=== PATIENT | female | born 1980 | race Caucasian/White ===

== ENCOUNTER 2018-01-03 17:01 | Emergency (ER) | payer OTHER, MEDICAID, SELFPAY ==
[2018-01-03 17:06] VITALS: BP 137/87; PULSE 101; RESP 20; TEMP 36.5; O2SAT 99; BMI 49.4
--- NOTE | 2018-01-03 18:15 | PC.NURSE ---
pt states, legs still feeling numb, burning bilateral feet with spasm. prefers to be sitting in wheelchair at this time. updated reason for waiting/
--- NOTE | 2018-01-03 18:53 | PC.NURSE ---
pt upset that she hasnt seen a doctor at this time, explained to pt. pt upset that her pain is not addressed. reassured
--- NOTE | 2018-01-03 19:10 | ED.LOWEXIN ---
HPI - Extremity Injury (Lower) General Chief Complaint: Extremity Injury, Lower Stated Complaint: numbness Time Seen by Provider: 01/03/18 17:24 Source: patient, RN notes reviewed and old records reviewed Mode of arrival: EMS Limitations: no limitations History of Present Illness HPI Narrative: Patient is a 37-year-old female presenting with bilateral lower extremity weakness. She says her legs gave out on her. She was actually seen evaluated yesterday at [facility] for the same where she was diagnosed with peripheral neuropathy. She is currently undergoing chemotherapy for stage III breast cancer. She got her 1st dose of Taxol yesterday and since then she has had increased neuropathy. She was started on gabapentin yesterday however she does not feel like it is helping. She said that she has had fever off and on but is currently afebrile. She has no changes in bowel or bladder habits. She denies any cough chest pain nausea or vomiting. Related Data Home Medications Medication Instructions Recorded Confirmed insulin NPH isoph U-100 human 1 dose SUB-Q DIRECTED 01/03/18 01/03/18 [Humulin N NPH Insulin KwikPen] insulin aspart U-100 [Novolog 1 dose SUB-Q PRN PRN 01/03/18 01/03/18 Flexpen U-100 Insulin] Previous Rx's Medication Instructions Recorded metformin 1,000 mg PO BIDCC #180 tab 09/15/17 oxycodone-acetaminophen [Percocet] 1 tab PO Q6H PRN #10 tab 01/04/18 Allergies Allergy/AdvReac Type Severity Reaction Status Date / Time No Known Drug Allergies Allergy Verified 01/03/18 17:11 Review of Systems Review of Systems All systems reviewed & are unremarkable except as noted in HPI and below Constitutional Reports body ache(s), Reports frequent falls (Over the last few days) and Reports weakness Cardiovascular Denies chest pain, Denies irregular heart rhythm, Denies lightheadedness, Denies palpitations, Denies dyspnea, Denies dyspnea on exertion and Denies orthopnea Respiratory Denies cough, Denies dyspnea, Denies dyspnea on exertion and Denies wheezing Gastrointestinal Gastrointestinal: Denies abdominal pain, Denies change in bowel habits, Denies diarrhea, Denies nausea and Denies vomiting Genitourinary Denies difficulty voiding and Denies other (Urinary incontinence) Musculoskeletal Reports system reviewed and no additional complaints, except as docu, Reports as per HPI, Reports numbness and Reports tingling (Bilateral lower leg numbness and tingling) Integumentary/Breasts Denies pruritus, Denies erythema, Denies rash and Denies wounds Neurologic Reports frequent falls (Over the last few days), Reports numbness, Reports radicular pain, Reports tingling (Bilateral lower leg numbness and tingling) and Reports weakness Endocrine Denies palpitations Hematologic/Lymphatic Reports system reviewed and no additional complaints, except as docu Allergic/Immunologic Denies wheezing PFSH Medical History Anxiety (Acute) Asthma (Acute) Breast cancer (Acute) Depression (Acute) PTSD (post-traumatic stress disorder) (Acute) Surgical History S/P mastectomy (Acute) Status post delivery Status post delivery Status post colonoscopy (11/25/16) Family History Father Diabetes mellitus Heart disease Mental health problem Grandfather Cancer Diabetes mellitus Heart disease High cholesterol Grandmother Cancer Heart disease Essential hypertension High cholesterol Cerebrovascular accident (CVA), unspecified mechanism Mother Mental health problem Social History Smoking Status: Current every day smoker Exam Initial Vital Signs Initial Vital Signs: Vital Signs Temperature 97.7 F 01/03/18 17:06 Pulse Rate 101 H 01/03/18 17:06 Respiratory Rate 20 01/03/18 17:06 Blood Pressure 137/87 H 01/03/18 17:06 Pulse Oximetry 99 01/03/18 17:06 Const General: No acute distress Nutritional Appearance: obese Orientation: alert, awake and oriented x3 HENMT Head: normal to inspection and other (alopecia) Ears: hearing grossly normal bilaterally Face and sinus: normal facial exam Neck Neck: normal visual inspection, trachea midline, No lymphadenopathy, No midline deformity and No JVD Lymphatic: No lymphedema Chest Other: Port right side Resp Effort & Inspection: normal respiratory effort, able to speak in complete sentences, no respiratory distress and no use of accessory muscles Auscultation: clear to auscultation bilaterally, no rales, no rhonchi and no wheezes Cardio Rate: regular rate Rhythm: regular rhythm Heart Sounds: no click, no gallops, no murmurs and no rubs Pulses: normal peripheral pulses Back/Spine/Pelvis Thoracic/Lumbar Spine: lumbar spinal tenderness (He tender midline of lumbar spine L4-L5 area no scarring no erythema) Skin General: no rashes or lesions noted, No jaundice and No petechiae Neuro General: alert, awake and oriented x3 Cognition: normal cognition Speech: speech normal Extrem Right lower extremity: normal capillary refill and lower leg (Minimal movement against gravity. drops to [place]); no cyanosis and joint enlargement noted Left lower extremity: normal capillary refill and lower leg Details: other (Able to hold leg for 3-5 seconds but not able to lift leg on her own); abnormal ROM, no cyanosis and joint enlargement noted Psych Speech and Movement: speech and movement normal Course Hospital Course: The patient refused any kind of peripheral IV. Her port was difficult to access requiring 1/2 inch needle which we had trouble locating. This did delay access and blood work. Patient also refused any kind of lab draw. Orders Ordered: ED Orders 01/03/18 19:23 MR lumbar spine wo con Stat 01/03/18 19:25 XR chest 1V Stat 01/03/18 22:09 Blood Culture Stat Complete Blood Count AUTO DIFF Stat Comprehensive Metabolic Panel Stat Lactate (Lactic Acid) Stat Discontinued Medications Hydromorphone HCl (Dilaudid) 1 mg IV NOW ONE Stop: 01/03/18 19:27 Last Admin: 01/03/18 20:33 Dose: 1 mg Sodium Chloride (Normal Saline 0.9%) 1,000 mls @ 1,000 mls/hr IV BOLUS ONE Stop: 01/03/18 23:24 Last Infusion: 01/04/18 00:02 Dose: 1,000 mls/hr Admin: 01/03/18 22:25 Dose: 1,000 mls/hr Ketorolac Tromethamine (Toradol) 30 mg IV NOW ONE Stop: 01/03/18 22:25 Last Admin: 01/03/18 22:38 Dose: Not Given Ketorolac Tromethamine (Toradol) 30 mg IV NOW ONE Stop: 01/03/18 22:26 Last Admin: 01/03/18 22:43 Dose: 30 mg Oxycodone/Acetaminophen (Endocet 5/325 Prepack) 1 bottle MISC SEEINSTR ONE Stop: 01/04/18 00:10 Last Admin: 01/04/18 00:16 Dose: 1 bottle Reevaluation(s) Reevaluation #1: Patient's pain improved some after Dilaudid. She is given a dose of Toradol Reevaluation #2: Pain continues to improve she is moving extremities all more but still complaining of numbness and tingling. Vital Signs - 8 hr 01/03/18 22:49 01/04/18 00:30 Temperature 97.6 F Pulse Rate 77 78 Respiratory Rate 17 17 Blood Pressure [Right Arm] 142/87 H 143/82 H Pulse Oximetry 98 98 MDM - Extremity Injury (Lower) Medical Records Attestation: I reviewed the patient's medical records. Lab Data Attestation: I reviewed the patient's lab results. Result diagrams: 01/03/18 22:09 01/03/18 22:09 Lab Results 01/03/18 01/03/18 01/03/18 Range/Units 22:09 22:09 22:09 WBC 8.0 (4.5-11.0) X10^3/uL RBC 4.17 (4.0-5.2) X10^6/uL Hgb 11.9 L (12.0-16.0) g/dL Hct 35.1 L (36-46) % MCV 84.0 (80-100) fL MCH 28.5 (26-34) PG MCHC 33.9 (30-36) % RDW 19.7 H (11.6-14.8) % Plt Count 184 (150-400) X10^3/uL Neut % (Auto) 52.8 (50-75) % Lymph % (Auto) 38.6 (25-40) % [place] % (Auto) 7.6 (3-14) % Eos % (Auto) 0.2 L (2-4) % Baso % (Auto) 0.8 (0-2) % Neut # (Auto) 4200 (7239-9545) /uL Sodium 141 (137-145) mmol/L Potassium 3.9 (3.4-5.1) mmol/L Chloride 106.0 (98-107) mmol/L Carbon Dioxide 24.0 (22-32) mmol/L BUN 13.0 (7-17) mg/dL Creatinine 0.50 L (0.52-1.04) mg/dL Estimated GFR > 60.0 (>60) mL/min BUN/Creatinine Ratio 26.0 H (6-22) Glucose 147 H (70-100) mg/dL Lactate 1.2 (0.7-2.1) mmol/L Calcium 8.8 (8.4-10.2) mg/dL Total Bilirubin 0.3 (0.2-1.3) mg/dL AST 22 (14-36) IU/L ALT 30 (9-52) IU/L Alkaline Phosphatase 64 (38-126) U/L Total Protein 7.0 (6.3-8.2) g/dL Albumin 3.9 (3.5-5.0) g/dL Globulin 3.1 (1.7-4.1) g/dL Albumin/Globulin Ratio 1.3 (1.0-2.8) Imaging Data MRI lumbar: Radiologist's impression: PROCEDURE: MR LUMBAR SPINE WO CON INDICATIONS: fever, back pain, leg weakness current breast cancer TECHNIQUE: Noncontrast sagittal T1 spin echo and T2 fast echo, sagittal STIR, axial T1 and T2 fast spin echo through the lumbar spine. In cases with scoliosis, additional coronal T2 fast spin echo may be performed. COMPARISON: None. FINDINGS: Image quality: Excellent. Alignment and Curvature: There is normal bony alignment. Bone Marrow: Marrow is of normal overall signal. No acute vertebral body compression fractures. Spinal Cord: Conus medullaris terminates at the L2 level. Visualized cord demonstrates normal signal and size. Paraspinous Soft Tissues: No paravertebral masses. Mild dependent subcutaneous soft tissue edema the level of L3-sacrum There is mild canal narrowing at the level of T10-T11 L1-L2: Normal appearance. L2-L3: Normal appearance. L3-L4: Normal appearance. L4-L5: Broad-based posterior disc bulge and facet arthropathy, with mild canal narrowing. Posterior annular fissure noted. Mild right and left foraminal narrowing L5-S1: Mild broad-based posterior disc bulge and facet arthropathy. No definite canal stenosis. Mild left and no right foraminal stenoses IMPRESSION: No suspicious marrow signal changes (although contrast enhanced images were not obtained secondary to no IV access). No high-grade canal stenosis or foraminal narrowing. Dictated by: Santiago Waddell M.D. on 01/03/2018 at 22:06 Chest x-ray: Attestation: I personally reviewed and interpreted this imaging study as follows: Radiologist's impression: PROCEDURE: XR CHEST 1V INDICATIONS: cancer fever TECHNIQUE: One view of the chest was acquired. COMPARISON: None. FINDINGS: Surgical changes and devices: Right chest port with the tip projecting in the lower SVC. Lungs and pleura: No pleural effusions or pneumothorax. Lung volumes are markedly decreased. There are patchy retrocardiac opacities Mediastinum: Mediastinal contours appear normal. Heart size is normal. Bones and chest wall: No suspicious bony lesions. Overlying soft tissues appear unremarkable. IMPRESSION: Patchy retrocardiac opacities which could reflect aspiration/atelectasis versus pneumonia. Recommend clinical correlation. Low lung volumes. Dictated by: Santiago Waddell M.D. on 01/03/2018 at 21:55 MDM Narrative Medical decision making narrative: Records from [facility] have been received and reviewed. She had blood work she was given gabapentin and Percocet and instructed to follow up outpatient. Today Patient's blood work is actually improved since yesterday. She no longer has leukocytosis. She is not neutropenic. The longer she is in the emergency department the more she is actually moving her legs on the gurney. She has numbness and tingling from her knees down. MRI does not show any significant or severe stenosis on, cauda equina or epidural abscess, or sign of diskitis or metastasis. She has no neurologic or focal deficit to suggest central brain lesion. She has bilateral lower extremity neuropathy. The patient does have peripheral neuropathy likely from combination of diabetes and Taxol. Taxol is known for causing peripheral neuropathy. The patient has been educated on peripheral neuropathy and how to move about safely. She is able to move her legs and she is able to weight bear. She is given a prescription for a walker. She was able to ambulate in the ED with a walker. Discharge Plan Departure Patient Disposition: Home, Self-Care Clinical Impression: Peripheral neuropathic pain Discharge Date/Time: 01/04/18 00:35 Interventions: ED Discharge Assessment Last Done: 01/04/18 00:35 Instructions: Peripheral Neuropathy Activity Restrictions/Additional Instructions: *You have been diagnosed with peripheral neuropathy *What to do: MRI of lumbar spine did not show any metastasis of cancer or a severe bulging of disc there is some mild disc bulging and narrowing. Her symptoms are likely from Taxol and possibly diabetes -get up slowly be sure feet or on the ground, use walker *Take medications as directed -Percocet 1 tablets every 6 hr *Follow up with your primary care provider in 2-3 days *Return to ER if you should have loss of urine or stool, inability to move legs or any new, worsening or concerning symptoms CONTROLLED SUBSTANCE DISCHARGE (Narcotoic/benzodiazepine/Flexeril/Phenergan) 1. You have been prescribed narcotic medications, it does have acetaminophen/Tylenol/paracetamol in it so do not take extra Tylenol or Tylenol containing products 2. Please understand that we cannot provide further refills of narcotics, benzodiazepines or controlled substances through the ED and her pain management will need to be through your provider. 3. While on these medications you cannot drive or operate heavy machinery. 4. You cannot sign legal documents or perform any duties such as this. 5. As long as you're taking opiate pain medications he should also be taking a stool softener such as Colace, Dulcolax, MiraLAX or prune juice, to help avoid constipation. Prescriptions: New oxycodone-acetaminophen [Percocet] 5-325 mg tablet 1 tab PO Q6H PRN (Reason: pain) Qty: 10 RF: 0 No Action metformin 1,000 MG tablet 1,000 mg PO BIDCC Qty: 180 RF: 0 insulin NPH isoph U-100 human [Humulin N NPH Insulin KwikPen] 100 unit/mL (3 mL) insulin pen 1 dose Sub-Q DIRECTED RF: 0 insulin aspart U-100 [Novolog Flexpen U-100 Insulin] 100 unit/mL insulin pen 1 dose Sub-Q PRN PRN (Reason: UNKNOWN) RF: 0 Referrals: Bonnie Goff DO [Primary Care Provider] -
--- NOTE | 2018-01-03 19:23 | DI.MRI.S_ITS ---
PROCEDURE: MR LUMBAR SPINE WO CON INDICATIONS: fever, back pain, leg weakness current breast cancer TECHNIQUE: Noncontrast sagittal T1 spin echo and T2 fast echo, sagittal STIR, axial T1 and T2 fast spin echo through the lumbar spine. In cases with scoliosis, additional coronal T2 fast spin echo may be performed. COMPARISON: None. FINDINGS: Image quality: Excellent. Alignment and Curvature: There is normal bony alignment. Bone Marrow: Marrow is of normal overall signal. No acute vertebral body compression fractures. Spinal Cord: Conus medullaris terminates at the L2 level. Visualized cord demonstrates normal signal and size. Paraspinous Soft Tissues: No paravertebral masses. Mild dependent subcutaneous soft tissue edema the level of L3-sacrum There is mild canal narrowing at the level of T10-T11 L1-L2: Normal appearance. L2-L3: Normal appearance. L3-L4: Normal appearance. L4-L5: Broad-based posterior disc bulge and facet arthropathy, with mild canal narrowing. Posterior annular fissure noted. Mild right and left foraminal narrowing L5-S1: Mild broad-based posterior disc bulge and facet arthropathy. No definite canal stenosis. Mild left and no right foraminal stenoses IMPRESSION: No suspicious marrow signal changes (although contrast enhanced images were not obtained secondary to no IV access). No high-grade canal stenosis or foraminal narrowing. Dictated by: Santiago Waddell M.D. on 01/03/2018 at 22:06 Approved by: Santiago Waddell M.D. on 01/03/2018 at 22:11
--- NOTE | 2018-01-03 19:25 | DI.RAD.S_ITS ---
PROCEDURE: XR CHEST 1V INDICATIONS: cancer fever TECHNIQUE: One view of the chest was acquired. COMPARISON: None. FINDINGS: Surgical changes and devices: Right chest port with the tip projecting in the lower SVC. Lungs and pleura: No pleural effusions or pneumothorax. Lung volumes are markedly decreased. There are patchy retrocardiac opacities Mediastinum: Mediastinal contours appear normal. Heart size is normal. Bones and chest wall: No suspicious bony lesions. Overlying soft tissues appear unremarkable. IMPRESSION: Patchy retrocardiac opacities which could reflect aspiration/atelectasis versus pneumonia. Recommend clinical correlation. Low lung volumes. Dictated by: Santiago Waddell M.D. on 01/03/2018 at 21:55 Approved by: Santiago Waddell M.D. on 01/03/2018 at 21:56
--- NOTE | 2018-01-03 20:30 | PC.NURSE ---
Pt given 1mg of Dilaudid ordered IV administered subQ in Rt arm.
[2018-01-03] MEDS: HYDROMORPHONE 2 MG INJ 1 MG IV (20:33)
[2018-01-03 22:14] LABS: Add Manual Diff / Slide Review NO; Basophils Percent Auto 0.8 % (0-2); Eosinophils Percent Auto 0.2 % (2-4); Hematocrit 35.1 % (36-46); Hemoglobin 11.9 g/dL (12.0-16.0); Lymphocytes Percent Auto 38.6 % (25-40); Mean Corpuscular HGB Conc 33.9 % (30-36); Mean Corpuscular Hemoglobin 28.5 PG (26-34); Monocytes Percent Auto 7.6 % (3-14); Neutrophils Absolute Auto 4200 /uL (3000-5900); Neutrophils Percent Auto 52.8 % (50-75); Platelet Count 184 X10^3/uL (150-400); Red Blood Cell Count 4.17 X10^6/uL (4.0-5.2); Red Cell Distribution Width 19.7 % (11.6-14.8)
[2018-01-03 22:23] LABS: Alanine Aminotransferase 30 IU/L (9-52); Albumin 3.9 g/dL (3.5-5.0); Albumin Globulin Ratio 1.3 (1.0-2.8); Alkaline Phosphatase 64 U/L (38-126); Aspartate Aminotransferase 22 IU/L (14-36); Bilirubin Total 0.3 mg/dL (0.2-1.3); Calcium 8.8 mg/dL (8.4-10.2); Estimated Glomerular Filt Rate > 60.0 mL/min (>60); Globulin 3.1 g/dL (1.7-4.1); Glucose 147 mg/dL (70-100); HEMOLYSIS < 15 (0-50); Potassium 3.9 mmol/L (3.4-5.1); Sodium 141 mmol/L (137-145)
[2018-01-03 22:25] LABS: Lactate (Lactic Acid) 1.2 mmol/L (0.7-2.1)
[2018-01-03] MEDS: SODIUM CHLORIDE 0.9% 1,000 ML 1000 ML IV (22:25)
[2018-01-03] MEDS: KETOROLAC 60 MG/2 ML VIAL 30 MG IV (22:43)
[2018-01-03 22:49] VITALS: BP 142/87; PULSE 77; RESP 17; O2SAT 98
[2018-01-04] MEDS: OXYCODONE/APAP 5/325 PREPACK 1 BOTTLE MISC (00:16)
[2018-01-04 00:30] VITALS: BP 143/82; PULSE 78; RESP 17; TEMP 36.4; O2SAT 98
--- NOTE | 2018-01-04 01:54 | PC.NURSE ---
Pt able to transfer from stretcher independently and ambulate independently with walker with RN at side. Pt stated still felt pain in legs but was comfortable going home with walker, prepak of pain medication (percocet) and prescription for pain medication.
--- NOTE | 2018-01-04 02:50 | PC.NURSE ---
Addendum entered by Caridad Coombs R.N. 01/04/18 03:08: Note timed for 0. Original Note: Pt port was unable to be accessed upon first attempt. Pt stated because of the placement and angle of the port it is difficult to access and requires two RN's to access. Pt was offered pain medication via subQ route, pt declined to receive pain medications via any other route and declined a peripheral IV.
--- NOTE | 2018-01-04 03:01 | PC.NURSE ---
[id number]
== END 2018-01-04 00:35 | disposition home or self-care (01) ==
PROVIDERS: Emergency Provider Emergency Medicine; Family Provider Family Medicine; PCP Family Medicine
DX: M79.2 Neuralgia and neuritis, unspecified (principal)
CPT/HCPCS: 36591; 71045; 72148; 80053; 83605; 85025; 87040; 96361; 96374; 96375; 99284; 99285; J1170; J1885

== ENCOUNTER → 2018-02-05 14:58 | Outpatient (CLI) | payer OTHER, MEDICAID, SELFPAY | PROVIDERS: Family Provider Family Medicine; PCP Family Medicine; Visit Provider Family Medicine | DX: R19.7 Diarrhea, unspecified (principal) | CPT/HCPCS: 87015; 87045; 87427; 87899 ==

== ENCOUNTER → 2018-02-05 15:31 | Outpatient (CLI) | payer OTHER, MEDICAID, SELFPAY | PROVIDERS: Family Provider Family Medicine; PCP Family Medicine; Visit Provider Family Medicine | DX: R19.7 Diarrhea, unspecified (principal) ==

== ENCOUNTER 2018-02-08 21:19 | Emergency (ER) | payer OTHER, MEDICAID, SELFPAY ==
[2018-02-08 21:26] VITALS: BP 129/77; PULSE 103; RESP 22; O2SAT 100; BMI 50.5
--- NOTE | 2018-02-08 21:29 | ED.CHESTPAIN ---
HPI - Chest Pain General Chief Complaint: Chest Pain Stated Complaint: CHEST PAIN Time Seen by Provider: 02/08/18 21:26 Source: patient Mode of arrival: ambulatory Limitations: no limitations History of Present Illness HPI narrative: Patient is a 37-year-old female presenting with left-sided chest pain. She is currently undergoing chemotherapy for stage III breast cancer. She was out to dinner this evening and on the way home she developed some chest pain with left arm pain. She sometimes has shortness of breath on. This is only being ongoing for the last 30 min. She came to the hospital for further evaluation. She denies and prepped doctor cough or fevers. She was previously seen with severe peripheral neuropathy they did change her chemotherapy and the peripheral neuropathy is much improved. MD complaint: chest pain Duration: intermittent Onset: during rest and during exertion Pain location: left chest Pain radiation: none Related Data Home Medications Medication Instructions Recorded Confirmed insulin NPH isoph U-100 human 1 dose SUB-Q DIRECTED 01/03/18 01/03/18 [Humulin N NPH Insulin KwikPen] insulin aspart U-100 [Novolog 1 dose SUB-Q PRN PRN 01/03/18 01/03/18 Flexpen U-100 Insulin] diphenoxylate-atropine 2.5 2 tab PO Q6-8H PRN tab 02/05/18 mg-0.025 mg tablet loperamide 2 mg capsule 2 mg PO PRN 15 Days cap 02/05/18 02/05/18 lorazepam 0.5 mg tablet 0.25 mg PO PRN 8 Days tab 02/05/18 02/05/18 ondansetron HCl 8 mg tablet 8 mg PO PRN 8 Days tab 02/05/18 02/05/18 Previous Rx's Medication Instructions Recorded metformin 1,000 mg PO BIDCC #180 tab 09/15/17 glyburide 2.5 mg tablet 2.5 mg PO ONCE #30 tab 02/05/18 Allergies Allergy/AdvReac Type Severity Reaction Status Date / Time No Known Drug Allergies Allergy Verified 02/05/18 14:32 Review of Systems Constitutional Denies chills, Denies fever(s), Denies lethargy and Denies weakness Cardiovascular Reports as per HPI, Reports dyspnea (sometimes) and Denies dyspnea on exertion Respiratory Denies cough, Reports dyspnea (sometimes), Denies dyspnea on exertion and Denies wheezing Musculoskeletal Comments: Left arm swelling, due to lymphedema Integumentary/Breasts Denies pruritus, Denies erythema, Denies rash and Denies wounds Neurologic Denies weakness Allergic/Immunologic Denies wheezing PFSH Medical History Abnormal chest xray (Chronic ~2001) Acne (Chronic) Anemia (Chronic ~1991) Anxiety (Chronic) Asthma (Chronic) Breast cancer (Chronic) Chlamydia (Chronic ~1998) Depression (Chronic) Diabetes mellitus (Chronic ~2015) Genital warts (Chronic ~2015) Heavy menstrual period (Chronic) Irregular menses (Chronic) PTSD (post-traumatic stress disorder) (Chronic) Painful menstrual periods (Chronic) Substance abuse (Chronic) Abnormal Pap smear of cervix (Resolved) Mumps (Resolved ~1992) Ovarian cyst (Resolved) Surgical History S/P mastectomy (Acute) Cyst (Resolved ~2015) Status post delivery (~1999) Status post delivery (~2008) Status post colonoscopy (11/25/16) Social History Smoking Status: Former smoker Exam Initial Vital Signs Initial Vital Signs: Vital Signs Pulse Rate 103 H 02/08/18 21:26 Respiratory Rate 22 02/08/18 21:26 Blood Pressure 129/77 H 02/08/18 21:26 Pulse Oximetry 100 02/08/18 21:26 Const General: cooperative Nutritional Appearance: overweight Orientation: alert and awake Chest Breast inspection: other (Mastectomy) Resp Effort & Inspection: normal respiratory effort, able to speak in complete sentences, no respiratory distress and no use of accessory muscles Auscultation: clear to auscultation bilaterally, no rales, no rhonchi and no wheezes Cardio Rate: regular rate Rhythm: regular rhythm Heart Sounds: no click, no gallops, no murmurs and no rubs Pulses: normal peripheral pulses GI Palpation: soft, No rigid and No tender Skin General: no rashes or lesions noted, No erythema and No petechiae Lesions: no lesions Rashes: no rashes Neuro General: alert, awake and oriented x3 Cranial Nerves: CN's II-XI intact bilaterally Course Orders Ordered: ED Orders 02/08/18 21:35 XR chest 1V Stat 02/08/18 21:40 Complete Blood Count AUTO DIFF Stat Comprehensive Metabolic Panel Stat Lipase Stat Troponin with CK Cardiac Panel Stat 06/21/18 22:04 CT angio chest PE protocol Stat 02/08/18 23:40 Troponin I Stat Discontinued Medications Aspirin (Aspirin Chew) 324 mg PO NOW ONE Stop: 02/08/18 21:35 Last Admin: 02/08/18 21:59 Dose: 324 mg Sodium Chloride (Normal Saline 0.9%) 1,000 mls @ 1,000 mls/hr IV CONT LAVELL Last Admin: 02/08/18 21:59 Dose: 1,000 mls/hr Ketorolac Tromethamine (Toradol) 30 mg IV NOW ONE Stop: 02/08/18 21:49 Last Admin: 02/08/18 21:59 Dose: 30 mg Morphine Sulfate (Morphine) 4 mg IV NOW ONE Stop: 02/08/18 23:24 Last Admin: 02/08/18 23:33 Dose: 4 mg Vital Signs - 8 hr 02/08/18 21:26 02/08/18 23:43 02/09/18 00:05 Temperature Pulse Rate 103 H 84 87 Respiratory Rate 22 23 21 Blood Pressure 129/77 H Blood Pressure [Right Wrist] 116/58 L 116/58 L Pulse Oximetry 100 99 98 02/09/18 00:49 Temperature 98 F Pulse Rate 80 Respiratory Rate 18 Blood Pressure 121/61 H Blood Pressure [Right Wrist] Pulse Oximetry 99 MDM - Chest Pain Medical Records Data Attestation: I reviewed the patient's medical records. Lab Data Attestation: I reviewed the patient's lab results. Result diagrams: 02/08/18 21:40 02/08/18 21:40 Lab Results 02/08/18 02/08/18 02/08/18 Range/Units 21:40 21:40 23:40 WBC 9.9 (4.5-11.0) X10^3/uL RBC 4.10 (4.0-5.2) X10^6/uL Hgb 12.5 (12.0-16.0) g/dL Hct 37.1 (36-46) % MCV 90.4 (80-100) fL MCH 30.5 (26-34) PG MCHC 33.8 (30-36) % RDW 16.6 H (11.6-14.8) % Plt Count 255 (150-400) X10^3/uL Neut % (Auto) Not Reportable Lymph % (Auto) Not Reportable [place] % (Auto) Not Reportable Eos % (Auto) Not Reportable Baso % (Auto) Not Reportable Total Counted 100 Seg Neutrophils % 61.0 (38-70) % Band Neutrophils % 1.0 L (3-7) % Lymphocytes % (Manual) 31.0 (25-45) % Atypical Lymphs % 1.0 H ( - 0) % Monocytes % (Manual) 6.0 (2-11) % Neutrophils # (Manual) 6138 H (8954-2295) /uL Nucleated RBCs 1 H ( - 0) #/Diff RBC Morphology Normal morphology Sodium 141 (137-145) mmol/L Potassium 4.0 (3.4-5.1) mmol/L Chloride 105 (98-107) mmol/L Carbon Dioxide 23 (22-32) mmol/L BUN 10 (7-17) mg/dL Creatinine 0.50 L (0.52-1.04) mg/dL Estimated GFR > 60.0 (>60) mL/min BUN/Creatinine Ratio 20.0 (6-22) Glucose 221 H (70-100) mg/dL Calcium 9.2 (8.4-10.2) mg/dL Total Bilirubin 0.4 (0.2-1.3) mg/dL AST 20 (14-36) IU/L ALT 28 (9-52) IU/L Alkaline Phosphatase 62 (38-126) U/L Total Creatine Kinase 22 L (30-135) U/L Troponin I 0.036 H 0.037 H (0.01-0.034) ng/mL Total Protein 7.1 (6.3-8.2) g/dL Albumin 4.0 (3.5-5.0) g/dL Globulin 3.1 (1.7-4.1) g/dL Albumin/Globulin Ratio 1.3 (1.0-2.8) Lipase 45 (23-300) U/L Imaging Data Chest x-ray: Radiologist's impression: PROCEDURE: XR CHEST 1V INDICATIONS: chest pain TECHNIQUE: One view of the chest was acquired. COMPARISON: [facility], CR, XR CHEST 1V, 01/03/2018, 20:09. FINDINGS: Surgical changes and devices: Right chest wall Port-A-Cath is stable. Lungs and pleura: No pleural effusions or pneumothorax. Lungs are clear. Mediastinum: Mediastinal contours appear normal. Heart size is normal. Bones and chest wall: No suspicious bony lesions. Overlying soft tissues appear unremarkable. IMPRESSION: No acute cardiopulmonary disease process. 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 No obvious large PE. ECG Data Attestation: I personally reviewed and interpreted this ECG as follows: Prior ECG tracings: not available for review Interpretation: Normal sinus rhythm rate [address] changes no S waves no Q-waves normal intervals no priors to compare MDM Narrative Medical decision making narrative: Patient has had intermittent pain while in the ED. Toradol initially helped she was then given morphine. Troponins are negative and PE study negative as well. She is not hypoxic. It does seem to be more when she is moving her left arm which she is developing lymphedema in. Discharge Plan Departure Patient Disposition: Home, Self-Care Clinical Impression: Atypical chest pain Discharge Date/Time: 02/09/18 00:52 Interventions: ED Discharge Assessment Last Done: 02/09/18 00:49 Instructions: DI for Atypical Chest Pain Activity Restrictions/Additional Instructions: *You have been diagnosed with atypical chest pain *What to do: Blood work and CT are negative. *Continue to take medications as directed *Follow up with your primary care provider in 2-3 days *Return to ER if you should have any new, worsening or concerning symptoms Prescriptions: No Action metformin 1,000 MG tablet 1,000 mg PO BIDCC Qty: 180 RF: 0 loperamide 2 mg capsule 2 mg PO PRN (Reason: loose stool) 15 Days RF: 0 ondansetron HCl 8 mg tablet 8 mg PO PRN8 Days RF: 0 lorazepam 0.5 mg tablet 0.25 mg PO PRN8 Days RF: 0 glyburide 2.5 mg tablet 2.5 mg PO ONCE Qty: 30 RF: 1 diphenoxylate-atropine [Lomotil] 2.5-0.025 mg tablet 2 tab PO Q6-8H PRNRF: 0 insulin NPH isoph U-100 human [Humulin N NPH Insulin KwikPen] 100 unit/mL (3 mL) insulin pen 1 dose Sub-Q DIRECTED RF: 0 insulin aspart U-100 [Novolog Flexpen U-100 Insulin] 100 unit/mL insulin pen 1 dose Sub-Q PRN PRN (Reason: UNKNOWN) RF: 0 Referrals: Bonnie Goff DO [Primary Care Provider] -
--- NOTE | 2018-02-08 21:35 | DI.RAD.S_ITS ---
PROCEDURE: XR CHEST 1V INDICATIONS: chest pain TECHNIQUE: One view of the chest was acquired. COMPARISON: [facility], CR, XR CHEST 1V, 01/03/2018, 20:09. FINDINGS: Surgical changes and devices: Right chest wall Port-A-Cath is stable. Lungs and pleura: No pleural effusions or pneumothorax. Lungs are clear. Mediastinum: Mediastinal contours appear normal. Heart size is normal. Bones and chest wall: No suspicious bony lesions. Overlying soft tissues appear unremarkable. IMPRESSION: No acute cardiopulmonary disease process. Dictated by: Nelly Conrad MD, PhD on 02/08/2018 at 21:56 Approved by: Nelly Conrad MD, PhD on 02/08/2018 at 21:57
[2018-02-08 21:49] LABS: Hematocrit 37.1 % (36-46); Hemoglobin 12.5 g/dL (12.0-16.0); Mean Corpuscular HGB Conc 33.8 % (30-36); Mean Corpuscular Hemoglobin 30.5 PG (26-34); Mean Corpuscular Volume 90.4 fL (80-100); Platelet Count 255 X10^3/uL (150-400); Red Cell Distribution Width 16.6 % (11.6-14.8); White Blood Cell Count 9.9 X10^3/uL (4.5-11.0)
[2018-02-08 21:59] LABS: Alanine Aminotransferase 28 IU/L (9-52); Albumin Globulin Ratio 1.3 (1.0-2.8); Alkaline Phosphatase 62 U/L (38-126); Aspartate Aminotransferase 20 IU/L (14-36); Bilirubin Total 0.4 mg/dL (0.2-1.3); Blood Urea Nitrogen 10 mg/dL (7-17); Calcium 9.2 mg/dL (8.4-10.2); Carbon Dioxide 23 mmol/L (22-32); Chloride 105 mmol/L (98-107); Creatine Kinase 22 U/L (30-135); Estimated Glomerular Filt Rate > 60.0 mL/min (>60); Globulin 3.1 g/dL (1.7-4.1); Glucose 221 mg/dL (70-100); HEMOLYSIS < 15 (0-50); Lipase 45 U/L (23-300); Sodium 141 mmol/L (137-145); Total Protein 7.1 g/dL (6.3-8.2)
[2018-02-08] MEDS: SODIUM CHLORIDE 0.9% 1,000 ML 1000 ML IV (21:59)
[2018-02-08] MEDS: KETOROLAC 60 MG/2 ML VIAL 30 MG IV (21:59)
[2018-02-08] MEDS: ASPIRIN 81 MG TAB 324 MG PO (21:59)
--- NOTE | 2018-02-08 22:04 | DI.CT.S_ITS ---
PROCEDURE: CT ANGIO CHEST PE PROTOCOL INDICATIONS: chest pain with current breast cancer TECHNIQUE: After the administration of intravenous contrast, 2 mm thick sections acquired from the pulmonary apices to the posterior costophrenic angles. 3-dimensional maximum intensity projection (MIP) coronal and sagittal reformats were then acquired through the thorax. For radiation dose reduction, the following was used: automated exposure control, adjustment of mA and/or kV according to patient size. COMPARISON: None. FINDINGS: Image quality: Suboptimal opacification of central pulmonary arteries. Pulmonary arteries: Pulmonary arteries are normal in size, and demonstrate no intraluminal filling defects to suggest central pulmonary embolism. Lungs and pleura: Lungs are clear. No pleural effusions or pneumothorax. Central and peripheral airways are patent. Mediastinum: Heart size is normal, without pericardial effusion. No mediastinal or hilar adenopathy. Thoracic aorta is normal in caliber and enhancement. Esophagus is normal in caliber, without hiatal hernia. Bones and chest wall: No suspicious bony lesions. Ribs and thoracic spine appear intact throughout. Thyroid gland is normal. No axillary or supraclavicular adenopathy. A Port-A-Cath is noted in the right anterior chest. Abdomen: Visualized upper abdominal solid organs appear normal in the early arterial phase of enhancement. IMPRESSION: Suboptimal opacification of central pulmonary arteries. No definitive pulmonary embolism. No significant discrepancy with the shift engineer radiology preliminary report. Dictated by: Agusto Petty M.D. on 02/09/2018 at 7:16 Approved by: Agusto Petty M.D. on 02/09/2018 at 7:19
[2018-02-08 22:10] LABS: Troponin I 0.036 ng/mL (0.01-0.034)
[2018-02-08 22:13] LABS: Add Manual Diff / Slide Review YES
[2018-02-08 22:19] LABS: Neutrophils Absolute Manual 6138 /uL (3000-5900); Nucleated Red Blood Cells 1 #/Diff; RBC Morphology Normal Morphology; Total Cells Counted 100
[2018-02-08] MEDS: MORPHINE 4 MG/ML INJ IV (23:33)
[2018-02-08 23:43] VITALS: BP 116/58; PULSE 84; RESP 23; O2SAT 99
[2018-02-09 00:05] VITALS: BP 116/58; PULSE 87; RESP 21; O2SAT 98
[2018-02-09 00:09] LABS: Troponin I 0.037 ng/mL (0.01-0.034)
[2018-02-09 00:49] VITALS: BP 121/61; PULSE 80; RESP 18; TEMP 36.6; O2SAT 99
--- NOTE | 2018-03-22 22:11 | PC.NURSE ---
Late entry: 02/08/18 Normal saline completed at 2310, 1000 ml infused.
== END 2018-02-09 00:52 | disposition home or self-care (01) ==
PROVIDERS: Emergency Provider Emergency Medicine; Family Provider Family Medicine; PCP Family Medicine
DX: R07.89 Other chest pain (principal)
CPT/HCPCS: 71045; 71275; 80053; 81025; 82550; 82553; 83690; 84484; 85025; 93005; 93010; 96361; 96374; 96375; 99282; 99285; J1885; J2270; Q9967

== ENCOUNTER → 2018-02-09 16:16 | Outpatient (CLI) | payer OTHER, MEDICAID, SELFPAY ==
[2018-02-09 17:14] LABS: Troponin I 0.032 ng/mL (0.01-0.034)
== END ==
PROVIDERS: Family Provider Family Medicine; PCP Family Medicine; Visit Provider Family Medicine
DX: R79.89 Other specified abnormal findings of blood chemistry (principal)
CPT/HCPCS: 84484

== ENCOUNTER → 2018-03-16 15:40 | Outpatient (CLI) | payer OTHER, MEDICAID, SELFPAY | PROVIDERS: Family Provider Family Medicine; PCP Family Medicine; Visit Provider Family Medicine | DX: Z53.9 Procedure and treatment not carried out, unspecified reason (principal) ==

== ENCOUNTER → 2018-03-16 15:55 | Outpatient (CLI) | payer OTHER, MEDICAID, SELFPAY ==
[2018-03-16 19:12] LABS: Clostridium Difficile Tox PCR Negative for C. diff
== END ==
PROVIDERS: Family Provider Family Medicine; PCP Family Medicine; Visit Provider Family Medicine
DX: R74.8 Abnormal levels of other serum enzymes (principal)
CPT/HCPCS: 87015; 87045; 87205; 87427; 87493; 87899

== ENCOUNTER → 2018-06-11 15:12 | Outpatient (CLI) | payer OTHER, MEDICAID, SELFPAY | PROVIDERS: Family Provider Family Medicine; PCP Family Medicine; Visit Provider Family Medicine ==

== ENCOUNTER → 2018-07-04 11:53 | Outpatient (CLI) | payer OTHER, MEDICAID, SELFPAY ==
--- NOTE | 2018-07-04 11:55 | DI.ECHO.S_ITS ---
[facility] +---------+ : : [address] : : : : [id number] : : : : Phone: [phone]+ Echocardiogram Report + + :Name: SHABBIR GRADY Study Date: 07/04/2018 Height: 67 in : :[facility] Exam Location: [facility] Weight: 341 lb : : Gender: Female BSA: 2.5 m2 : :: 1980 Age: 38 yrs BP: 110/70 mmHg: :Reason For Study: Chest pain : :Ordering Physician: Bonnie : :[place] Performed By: Za Page : + + Interpretation Summary Left ventricular systolic function is normal without focal wall motion abnormalities with the ejection fraction visually estimated to be 60-65%. Left ventricular wall thickness is borderline increased but diastolic parameters suggest probable normal left ventricular diastolic function and normal filling pressures. The right ventricle grossly appears normal in size with probable normal systolic function. Pulmonary artery pressures cannot be estimated because of the lack of a measurable TR jet velocity. Both atria are normal in size. There is no obvious significant valvular heart disease. The ascending aorta is mildly enlarged. Procedure: A two-dimensional transthoracic echocardiogram with color flow and Doppler was performed. A contrast injection of Definity was performed to improve assessment of LV function. There is no prior echocardiogram noted for this patient. The parasternal images were technically adequate . The apical images were technically difficult due to body habitus and recent mastectomy. The patient was in normal sinus rhythm during the exam. Left Ventricle: The left ventricle is normal in size. Left ventricular wall thickness is borderline increased. Left ventricular systolic function is normal without focal wall motion abnormalities. The ejection fraction is estimated to be 60-65%. Diastolic parameters suggest probable normal left ventricular diastolic function and normal filling pressures. Right Ventricle: The right ventricle grossly appears normal in size with probable normal systolic function. Atria: Both atria are normal in size. There is no Doppler evidence for an interatrial shunt. Mitral Valve: The mitral valve leaflets appear borderline thickened, but open well. There is trace mitral regurgitation. Aortic Valve: The aortic valve is trileaflet. The aortic valve opens well. No aortic regurgitation is present. Tricuspid Valve: The tricuspid valve is not well visualized, but is grossly normal. There is a trace or physiologic amount of tricuspid regurgitation. Pulmonary artery pressures cannot be estimated because of the lack of a measurable TR jet velocity. Pulmonic Valve: The pulmonic valve is not well visualized. There is a trace or physiologic amount of pulmonic regurgitation. There is no significant valvular heart disease. Great Vessels: The aortic root is normal size. The ascending aorta is mildly enlarged. The pulmonary artery is not well visualized, but is probably normal size. The inferior vena cava was not visualized. Pericardium/ Pleura There is no pericardial effusion. There is no pleural effusion. MMode/2D Measurements & Calculations LVIDd: 5.1 cm LVOT diam: 2.0 cm LVIDs: 3.1 cm Ao root diam: 3.5 cm FS: 39.0 % asc Aorta Diam: 3.6 cm EPSS: 0.40 cm IVSd: 0.89 cm LVPWd: 1.1 cm LV jaimes. diameter/BSA (cm/m^2): 2.0 LV sys. diameter/BSA (cm/m^2): 1.2 LA A2 area: 22.1 cm2 RA long axis: 6.2 cm LA A4 area: 22.6 cm2 RA area: 23.8 cm2 LA length (vol): 6.1 cm RA vol: 77.4 ml LA vol: 69.5 ml RA : 30.5 ml/m2 LA vol index: 27.4 ml/m2 RVD1 (basal): 4.3 cm TAPSE: 2.9 cm Doppler Measurements & Calculations Ao V2 max: 129.5 cm/sec LVOT Max Harry: 102.9 cm/sec Ao V2 mean: 94.3 cm/sec LV V1 max P.2 mmHg Ao max P.7 mmHg LV V1 VTI: 19.7 cm Ao mean P.9 mmHg DON(I,D): 2.6 cm2 Ao V2 VTI: 23.5 cm DON(V,D): 2.5 cm2 sev ratio: 0.84 DON indexed to BSA (cm^2/m^2): 1.0 MV E max harry: 82.9 cm/sec PA V2 max: 71.0 cm/sec MV A max harry: 49.7 cm/sec PA V2 mean: 45.5 cm/sec MV E/A: 1.7 PA mean P.95 mmHg Med Peak E' Harry: 6.9 cm/sec PA Accel Time: 0.12 sec E/E' med: 12.0 Lat Peak E' Harry: 15.2 cm/sec E/E' lat: 5.5 E/e' average: 8.7 MV dec time: 0.22 sec MV P1/2t: 65.9 msec MV P1/2t max harry: 82.9 cm/sec MVA(P1/2t): 3.3 cm2 Reading Physician:HALEY
== END ==
PROVIDERS: Family Provider Family Medicine; PCP Family Medicine; Visit Provider Family Medicine
DX: R07.9 Chest pain, unspecified (principal)
CPT/HCPCS: 93306; Q9957

== ENCOUNTER → 2018-08-08 08:15 | Outpatient (CLI) | payer OTHER, MEDICAID, SELFPAY | PROVIDERS: Family Provider Family Medicine; PCP Family Medicine; Visit Provider Family Medicine | DX: Z13.9 Encounter for screening, unspecified (principal) ==

== ENCOUNTER 2018-08-22 14:25 | Emergency (ER) | payer OTHER, MEDICAID, SELFPAY ==
--- NOTE | 2018-08-22 | DI.US.S_ITS ---
LIMITED ULTRASOUND OF LEFT BREAST: 08/22/2018 CLINICAL: Palpable left breast lump/mass at area of mastectomy scar/ratiation scar. Comparison is made to exam dated: 09/05/2017 breast MRI - [facility]. Real-time grayscale and Doppler ultrasound of the left breast were performed in the region of the patient's reported palpable concern at her postsurgical scar. Ray scale images of the real-time examination were reviewed. Targeted ultrasound was performed in the region of the patient's reported focal palpable concern in the region of the patient's prior surgical scar. No underlying breast mass or abnormality is identified. IMPRESSION: BENIGN No ultrasound findings to explain patient's reported focal palpable concern in the region of the patient's prior surgical scar. Recommend clinical follow-up for further evaluation and management of the patient's reported symptoms in the left breast. Patient is status post left mastectomy. Return to annual screening mammography of the right breast recommended. These results and recommendations were discussed with the referring provider Dr. Eastman of the [facility] Emergency Department by Dr. Castillo by telephone at approximately 5:00 pm. This exam was interpreted at Station ID: [id number]. Electronically Signed By: Dillan Castillo M.D. ecl/:08/22/2018 17:09:53 letter sent: Clinical Evaluation Ultrasound BI-RADS: 2 Benign
--- NOTE | 2018-08-22 14:28 | ED.GENADULT ---
HPI - General Adult <Ever Eastman DO - Last Filed: 08/23/18 13:38> General Chief complaint: Psychiatric Symptoms Stated complaint: mental issues Time Seen by Provider: 08/22/18 14:28 Source: patient Mode of arrival: ambulatory Limitations: no limitations History of Present Illness HPI narrative: Patient is a 38-year-old female sent over from her primary care doctor's office for suicidal ideation. Patient states that for the past 4 days she has had an increase in her anxiety. She does not know why her anxiety has gone up. She states that she feels safe in her room at home however in other areas of the house she feels unsafe. She states that her anxiety elevates when she hears the phone ring or knocked the door or car go by. She states this is different from her normal anxiety. She states that she has had thoughts of hurting herself. No specific plan but she states that if she would hurt herself food be by taking pills. She has a 9-year-old daughter at home. Her friend is picking the daughter up from school. She has been admitted to the hospital in the past secondary to suicidal ideation. She states that this was several years ago. At the time she took an overdose of some pills. She states she was on drugs at the time. Denies taking any illegal drugs currently and no alcohol the past 24 hr. Patient does have a history of breast cancer. Had a left mastectomy done in August of 2017. Her last radiation treatment was at the end of 2018. She states she recently was diagnosed with a ?lesion? in the right portion of her brain seen on MRI which was ordered because she was having migraines. She states that she is scheduled to have her lumbar puncture for further evaluation of this in for evaluation of possible multiple sclerosis. Was also concerned by the patient and her primary doctor of potential cellulitis over her mastectomy scar. She states that over the past several weeks she has noticed which she thinks is a ?fluid collection on her left anterior chest. Related Data Home Medications Medication Instructions Recorded Confirmed diphenhydramine-acetaminophen 1 tab PO BEDTIME 08/22/18 08/22/18 [Tylenol PM Extra Strength] sumatriptan succinate 100 mg PO PRN PRN 08/22/18 08/22/18 Previous Rx's Medication Instructions Recorded blood-glucose meter kit #1 each 05/02/18 metformin 1,000 mg PO BIDCC #180 tab 06/27/18 Allergies Allergy/AdvReac Type Severity Reaction Status Date / Time sulfamethoxazole Allergy Intermediate Hives Verified 08/22/18 14:39 [From Bactrim] trimethoprim [From Bactrim] Allergy Intermediate Hives Verified 08/22/18 14:39 lidocaine Allergy Verified 08/22/18 14:39 silver AdvReac Intermediate Hives, Verified 08/22/18 14:39 difficulty breathing Review of Systems <Ever RadhamesDO lissy - Last Filed: 08/23/18 13:38> Constitutional Denies fever(s) and Reports headache(s) ENT Ears, Nose, Mouth, and Throat: Denies vertigo, Denies dizziness and Reports headache(s) Cardiovascular Denies chest pain and Denies dyspnea Comments: Fluid collection left anterior chest wall Respiratory Denies cough and Denies dyspnea Gastrointestinal Gastrointestinal: Denies abdominal pain, Denies nausea and Denies vomiting Genitourinary Denies dysuria Musculoskeletal Denies myalgias and Denies arthralgias Integumentary/Breasts Comments: Fluid collection left anterior chest wall with tenderness to palpation Neurologic Reports behavioral changes, Denies confusion, Denies vertigo, Denies dizziness and Reports headache(s) Psychiatric Reports anxiety, Reports behavioral changes, Denies confusion, Reports depression, Reports difficulty concentrating, Reports hopelessness, Reports mood swings, Reports panic attacks, Reports paranoia, Denies hallucinations, Denies homicidal ideation and Reports suicidal ideation Hematologic/Lymphatic Comments: not on anticoagulation Exam <Ever Eastman DO - Last Filed: 08/23/18 13:38> Initial Vital Signs Initial Vital Signs: Vital Signs Temperature 99.1 F 08/22/18 14:33 Pulse Rate 96 H 08/22/18 14:33 Respiratory Rate 18 08/22/18 14:33 Blood Pressure 135/96 H 08/22/18 14:33 Pulse Oximetry 98 08/22/18 14:33 Const General: cooperative, healthy appearing, well developed, well groomed and No acute distress Orientation: alert, awake and oriented x3 HENMT Head: normal to inspection and normocephalic Chest Other: Left anterior chest wall with mastectomy scar in place. No overlying erythema. Does have some tenderness to palpation on the inferior portion of the scar over her anterior chest wall. No defined fluid collection was felt however was fairly tender to palpation. Resp Effort & Inspection: normal respiratory effort Cardio Rate: regular rate GI Inspection: non-distended Palpation: soft Skin Lesions: no lesions Rashes: no rashes Neuro General: alert, awake and oriented x3 Extrem General: normal to inspection and capillary refill normal Psych Appearance: grossly normal and well kempt Mental Status: mental status grossly normal and other (Crying) Speech and Movement: speech and movement normal Mood: anxious mood, No angry and other (Crying) Affect: sad Attitude: cooperative Thought Process: normal Thought Content: suicidality Judgment: judgment good <Ann Peña DO - Last Filed: 08/27/18 08:34> Initial Vital Signs Initial Vital Signs: Vital Signs Temperature 99.1 F 08/22/18 14:33 Pulse Rate 96 H 08/22/18 14:33 Respiratory Rate 18 08/22/18 14:33 Blood Pressure 135/96 H 08/22/18 14:33 Pulse Oximetry 98 08/22/18 14:33 Course <Ever Eastman DO - Last Filed: 08/23/18 13:38> Orders Ordered: Discontinued Medications Metformin HCl (Glucophage) 500 mg PO NOW ONE Stop: 08/23/18 20:52 Metformin HCl (Glucophage) 500 mg PO NOW ONE Stop: 08/22/18 21:21 Last Admin: 08/22/18 21:17 Dose: 500 mg Metformin HCl (Glucophage) 500 mg PO 0800 [facility] Last Admin: 08/23/18 08:25 Dose: 500 mg Vital Signs - 8 hr 08/23/18 08:02 Temperature 96.8 F L Pulse Rate 94 H Respiratory Rate 18 Blood Pressure [Left Arm] 128/76 Pulse Oximetry 99 <DO Leti Moreno Last Filed: 08/27/18 08:34> Orders Ordered: Discontinued Medications Metformin HCl (Glucophage) 500 mg PO NOW ONE Stop: 08/23/18 20:52 Metformin HCl (Glucophage) 500 mg PO NOW ONE Stop: 08/22/18 21:21 Last Admin: 08/22/18 21:17 Dose: 500 mg Metformin HCl (Glucophage) 500 mg PO 0800 [facility] Last Admin: 08/23/18 08:25 Dose: 500 mg Vital Signs - 8 hr 08/23/18 08:02 Temperature 96.8 F L Pulse Rate 94 H Respiratory Rate 18 Blood Pressure [Left Arm] 128/76 Pulse Oximetry 99 Medical Decision Making <Ever Eastman, DO - Last Filed: 08/23/18 13:38> Medical Records Medical records reviewed: Yes I reviewed the patient's medical records. Lab Data Lab results reviewed: Yes I reviewed the patient's lab results. Result diagrams: 08/22/18 15:51 08/22/18 15:51 Lab Results 08/22/18 08/22/18 08/22/18 Range/Units 15:00 15:00 15:51 WBC 11.3 H (4.5-11.0) X10^3/uL RBC 5.11 (4.0-5.2) X10^6/uL Hgb 14.8 (12.0-16.0) g/dL Hct 44.1 (36-46) % MCV 86.2 (80-100) fL MCH 28.9 (26-34) PG MCHC 33.6 (30-36) % RDW 13.3 (11.6-14.8) % Plt Count 340 (150-400) X10^3/uL Neut % (Auto) 65.5 (50-75) % Lymph % (Auto) 25.1 (25-40) % [place] % (Auto) 7.6 (3-14) % Eos % (Auto) 1.2 L (2-4) % Baso % (Auto) 0.6 (0-2) % Neut # (Auto) 7400 H (5635-4950) /uL Sodium (137-145) mmol/L Potassium (3.4-5.1) mmol/L Chloride (98-107) mmol/L Carbon Dioxide (22-32) mmol/L BUN (7-17) mg/dL Creatinine (0.52-1.04) mg/dL Estimated GFR (>60) mL/min BUN/Creatinine Ratio (6-22) Glucose (70-100) mg/dL Lactate (0.7-2.1) mmol/L Calcium (8.4-10.2) mg/dL Total Bilirubin (0.2-1.3) mg/dL AST (14-36) IU/L ALT (9-52) IU/L Alkaline Phosphatase (38-126) U/L Total Protein (6.3-8.2) g/dL Albumin (3.5-5.0) g/dL Globulin (1.7-4.1) g/dL Albumin/Globulin Ratio (1.0-2.8) Lipase (23-300) U/L Procalcitonin (<0.5) ng/mL TSH (0.47-4.68) uIU/mL Urine Test Negative (Negative) Salicylates (<20) mg/dL Urine Opiates Screen Negative (Negative) Ur Oxycodone Screen Negative (Negative) Urine Methadone Screen Negative (Negative) Acetaminophen (10-30) ug/mL Ur Barbiturates Screen Negative (Negative) U Tricyclic Antidepress Negative (Negative) Ur Phencyclidine Scrn Negative (Negative) Ur Amphetamines Screen Negative (Negative) U Methamphetamines Scrn Negative (Negative) Ur MDMA Scrn (Ecstasy) Negative (Negative) U Benzodiazepines Scrn Negative (Negative) Urine Cocaine Screen Negative (Negative) U Marijuana (THC) Screen Negative (Negative) 08/22/18 08/22/18 08/22/18 Range/Units 15:51 15:51 15:51 WBC (4.5-11.0) X10^3/uL RBC (4.0-5.2) X10^6/uL Hgb (12.0-16.0) g/dL Hct (36-46) % MCV (80-100) fL MCH (26-34) PG MCHC (30-36) % RDW (11.6-14.8) % Plt Count (150-400) X10^3/uL Neut % (Auto) (50-75) % Lymph % (Auto) (25-40) % [place] % (Auto) (3-14) % Eos % (Auto) (2-4) % Baso % (Auto) (0-2) % Neut # (Auto) (2643-9749) /uL Sodium 139 (137-145) mmol/L Potassium 3.8 (3.4-5.1) mmol/L Chloride 104 (98-107) mmol/L Carbon Dioxide 22 (22-32) mmol/L BUN 9 (7-17) mg/dL Creatinine 0.50 L (0.52-1.04) mg/dL Estimated GFR > 60.0 (>60) mL/min BUN/Creatinine Ratio 18.0 (6-22) Glucose 154 H (70-100) mg/dL Lactate 1.3 (0.7-2.1) mmol/L Calcium 10.0 (8.4-10.2) mg/dL Total Bilirubin 0.3 (0.2-1.3) mg/dL AST 19 (14-36) IU/L ALT 20 (9-52) IU/L Alkaline Phosphatase 82 (38-126) U/L Total Protein 8.2 (6.3-8.2) g/dL Albumin 4.6 (3.5-5.0) g/dL Globulin 3.6 (1.7-4.1) g/dL Albumin/Globulin Ratio 1.3 (1.0-2.8) Lipase 43 (23-300) U/L Procalcitonin < 0.05 (<0.5) ng/mL TSH (0.47-4.68) uIU/mL Urine Test (Negative) Salicylates < 1.0 (<20) mg/dL Urine Opiates Screen (Negative) Ur Oxycodone Screen (Negative) Urine Methadone Screen (Negative) Acetaminophen < 10 L (10-30) ug/mL Ur Barbiturates Screen (Negative) U Tricyclic Antidepress (Negative) Ur Phencyclidine Scrn (Negative) Ur Amphetamines Screen (Negative) U Methamphetamines Scrn (Negative) Ur MDMA Scrn (Ecstasy) (Negative) U Benzodiazepines Scrn (Negative) Urine Cocaine Screen (Negative) U Marijuana (THC) Screen (Negative) 08/22/18 Range/Units 15:51 WBC (4.5-11.0) X10^3/uL RBC (4.0-5.2) X10^6/uL Hgb (12.0-16.0) g/dL Hct (36-46) % MCV (80-100) fL MCH (26-34) PG MCHC (30-36) % RDW (11.6-14.8) % Plt Count (150-400) X10^3/uL Neut % (Auto) (50-75) % Lymph % (Auto) (25-40) % [place] % (Auto) (3-14) % Eos % (Auto) (2-4) % Baso % (Auto) (0-2) % Neut # (Auto) (0334-0807) /uL Sodium (137-145) mmol/L Potassium (3.4-5.1) mmol/L Chloride (98-107) mmol/L Carbon Dioxide (22-32) mmol/L BUN (7-17) mg/dL Creatinine (0.52-1.04) mg/dL Estimated GFR (>60) mL/min BUN/Creatinine Ratio (6-22) Glucose (70-100) mg/dL Lactate (0.7-2.1) mmol/L Calcium (8.4-10.2) mg/dL Total Bilirubin (0.2-1.3) mg/dL AST (14-36) IU/L ALT (9-52) IU/L Alkaline Phosphatase (38-126) U/L Total Protein (6.3-8.2) g/dL Albumin (3.5-5.0) g/dL Globulin (1.7-4.1) g/dL Albumin/Globulin Ratio (1.0-2.8) Lipase (23-300) U/L Procalcitonin (<0.5) ng/mL TSH 1.49 (0.47-4.68) uIU/mL Urine Test (Negative) Salicylates (<20) mg/dL Urine Opiates Screen (Negative) Ur Oxycodone Screen (Negative) Urine Methadone Screen (Negative) Acetaminophen (10-30) ug/mL Ur Barbiturates Screen (Negative) U Tricyclic Antidepress (Negative) Ur Phencyclidine Scrn (Negative) Ur Amphetamines Screen (Negative) U Methamphetamines Scrn (Negative) Ur MDMA Scrn (Ecstasy) (Negative) U Benzodiazepines Scrn (Negative) Urine Cocaine Screen (Negative) U Marijuana (THC) Screen (Negative) Point of Care Testing Breathalizer 0 Urine Dip Bedside Urine Glucose 500 mg/dl Bedside Urine Bilirubin - Negative Bedside Urine Ketone - Negative Urine Specific [place] 1.025 Bedside Urine Occult Blood - Negative Bedside Urine pH 6.0 Bedside Urine Protein - Negative Bedside Urine Urobilinogen - Negative Bedside Urine Nitrite - Negative Bedside Urine Leukocytes - Negative Esterase Point of care testing: Point of Care Testing Breathalizer 0 Urine Dip Bedside Urine Glucose 500 mg/dl Bedside Urine Bilirubin - Negative Bedside Urine Ketone - Negative Urine Specific [place] 1.025 Bedside Urine Occult Blood - Negative Bedside Urine pH 6.0 Bedside Urine Protein - Negative Bedside Urine Urobilinogen - Negative Bedside Urine Nitrite - Negative Bedside Urine Leukocytes - Negative Esterase Imaging Data Ultrasound left chest wall: Radiologist's impression: No signs of abscess, no signs of fluid collection, MDM Narrative Medical decision making narrative: Patient is medically cleared. No signs of toxic ingestion. The patient states that she ?does need help ?she is voluntary for admission. No indication for antibiotics. She states that she does have somewhat to take care for child. She does express thoughts of hurting herself however does not have a specific plan however she does state that if she were to kill herself it would be by overdosing on pills. She states that she would not do it because of her child however does feel uncomfortable at home. States she is very anxious at home. This has been going on for the past 4 days. She does not know what triggered it 4 days ago. I did discuss the case with her primary care doctor who sent her over from the clinic who knows her very well. Her primary care doctor states that have baseline she is very stoic however today in the office she was crying. She was crying for me here in the emergency department. I do feel that she would benefit from a in-patient admission. Patient does not meet involuntary criteria. Care turned over to night ER provider for continued observation and disposition. 09/20/18 0700: Received turned over provider. We were able to secure a spot at [facility]. Patient has remained calm overnight. Continues to be medically clear. Patient will have a friend pick her up at 1000 hr this morning to arrive at [facility] at noon were intake. Patient was informed of this. She expressed understanding and agreement plan. <Ann Peña, DO - Last Filed: 08/27/18 08:34> Medical Records Medical records reviewed: Yes I reviewed the patient's medical records. Lab Data Lab results reviewed: Yes I reviewed the patient's lab results. Lab Results 08/22/18 08/22/18 08/22/18 Range/Units 15:00 15:00 15:51 WBC 11.3 H (4.5-11.0) X10^3/uL RBC 5.11 (4.0-5.2) X10^6/uL Hgb 14.8 (12.0-16.0) g/dL Hct 44.1 (36-46) % MCV 86.2 (80-100) fL MCH 28.9 (26-34) PG MCHC 33.6 (30-36) % RDW 13.3 (11.6-14.8) % Plt Count 340 (150-400) X10^3/uL Neut % (Auto) 65.5 (50-75) % Lymph % (Auto) 25.1 (25-40) % [place] % (Auto) 7.6 (3-14) % Eos % (Auto) 1.2 L (2-4) % Baso % (Auto) 0.6 (0-2) % Neut # (Auto) 7400 H (1321-8306) /uL Sodium (137-145) mmol/L Potassium (3.4-5.1) mmol/L Chloride (98-107) mmol/L Carbon Dioxide (22-32) mmol/L BUN (7-17) mg/dL Creatinine (0.52-1.04) mg/dL Estimated GFR (>60) mL/min BUN/Creatinine Ratio (6-22) Glucose (70-100) mg/dL Lactate (0.7-2.1) mmol/L Calcium (8.4-10.2) mg/dL Total Bilirubin (0.2-1.3) mg/dL AST (14-36) IU/L ALT (9-52) IU/L Alkaline Phosphatase (38-126) U/L Total Protein (6.3-8.2) g/dL Albumin (3.5-5.0) g/dL Globulin (1.7-4.1) g/dL Albumin/Globulin Ratio (1.0-2.8) Lipase (23-300) U/L Procalcitonin (<0.5) ng/mL TSH (0.47-4.68) uIU/mL Urine Test Negative (Negative) Salicylates (<20) mg/dL Urine Opiates Screen Negative (Negative) Ur Oxycodone Screen Negative (Negative) Urine Methadone Screen Negative (Negative) Acetaminophen (10-30) ug/mL Ur Barbiturates Screen Negative (Negative) U Tricyclic Antidepress Negative (Negative) Ur Phencyclidine Scrn Negative (Negative) Ur Amphetamines Screen Negative (Negative) U Methamphetamines Scrn Negative (Negative) Ur MDMA Scrn (Ecstasy) Negative (Negative) U Benzodiazepines Scrn Negative (Negative) Urine Cocaine Screen Negative (Negative) U Marijuana (THC) Screen Negative (Negative) 08/22/18 08/22/18 08/22/18 Range/Units 15:51 15:51 15:51 WBC (4.5-11.0) X10^3/uL RBC (4.0-5.2) X10^6/uL Hgb (12.0-16.0) g/dL Hct (36-46) % MCV (80-100) fL MCH (26-34) PG MCHC (30-36) % RDW (11.6-14.8) % Plt Count (150-400) X10^3/uL Neut % (Auto) (50-75) % Lymph % (Auto) (25-40) % [place] % (Auto) (3-14) % Eos % (Auto) (2-4) % Baso % (Auto) (0-2) % Neut # (Auto) (5835-8577) /uL Sodium 139 (137-145) mmol/L Potassium 3.8 (3.4-5.1) mmol/L Chloride 104 (98-107) mmol/L Carbon Dioxide 22 (22-32) mmol/L BUN 9 (7-17) mg/dL Creatinine 0.50 L (0.52-1.04) mg/dL Estimated GFR > 60.0 (>60) mL/min BUN/Creatinine Ratio 18.0 (6-22) Glucose 154 H (70-100) mg/dL Lactate 1.3 (0.7-2.1) mmol/L Calcium 10.0 (8.4-10.2) mg/dL Total Bilirubin 0.3 (0.2-1.3) mg/dL AST 19 (14-36) IU/L ALT 20 (9-52) IU/L Alkaline Phosphatase 82 (38-126) U/L Total Protein 8.2 (6.3-8.2) g/dL Albumin 4.6 (3.5-5.0) g/dL Globulin 3.6 (1.7-4.1) g/dL Albumin/Globulin Ratio 1.3 (1.0-2.8) Lipase 43 (23-300) U/L Procalcitonin < 0.05 (<0.5) ng/mL TSH (0.47-4.68) uIU/mL Urine Test (Negative) Salicylates < 1.0 (<20) mg/dL Urine Opiates Screen (Negative) Ur Oxycodone Screen (Negative) Urine Methadone Screen (Negative) Acetaminophen < 10 L (10-30) ug/mL Ur Barbiturates Screen (Negative) U Tricyclic Antidepress (Negative) Ur Phencyclidine Scrn (Negative) Ur Amphetamines Screen (Negative) U Methamphetamines Scrn (Negative) Ur MDMA Scrn (Ecstasy) (Negative) U Benzodiazepines Scrn (Negative) Urine Cocaine Screen (Negative) U Marijuana (THC) Screen (Negative) 08/22/18 Range/Units 15:51 WBC (4.5-11.0) X10^3/uL RBC (4.0-5.2) X10^6/uL Hgb (12.0-16.0) g/dL Hct (36-46) % MCV (80-100) fL MCH (26-34) PG MCHC (30-36) % RDW (11.6-14.8) % Plt Count (150-400) X10^3/uL Neut % (Auto) (50-75) % Lymph % (Auto) (25-40) % [place] % (Auto) (3-14) % Eos % (Auto) (2-4) % Baso % (Auto) (0-2) % Neut # (Auto) (1310-4409) /uL Sodium (137-145) mmol/L Potassium (3.4-5.1) mmol/L Chloride (98-107) mmol/L Carbon Dioxide (22-32) mmol/L BUN (7-17) mg/dL Creatinine (0.52-1.04) mg/dL Estimated GFR (>60) mL/min BUN/Creatinine Ratio (6-22) Glucose (70-100) mg/dL Lactate (0.7-2.1) mmol/L Calcium (8.4-10.2) mg/dL Total Bilirubin (0.2-1.3) mg/dL AST (14-36) IU/L ALT (9-52) IU/L Alkaline Phosphatase (38-126) U/L Total Protein (6.3-8.2) g/dL Albumin (3.5-5.0) g/dL Globulin (1.7-4.1) g/dL Albumin/Globulin Ratio (1.0-2.8) Lipase (23-300) U/L Procalcitonin (<0.5) ng/mL TSH 1.49 (0.47-4.68) uIU/mL Urine Test (Negative) Salicylates (<20) mg/dL Urine Opiates Screen (Negative) Ur Oxycodone Screen (Negative) Urine Methadone Screen (Negative) Acetaminophen (10-30) ug/mL Ur Barbiturates Screen (Negative) U Tricyclic Antidepress (Negative) Ur Phencyclidine Scrn (Negative) Ur Amphetamines Screen (Negative) U Methamphetamines Scrn (Negative) Ur MDMA Scrn (Ecstasy) (Negative) U Benzodiazepines Scrn (Negative) Urine Cocaine Screen (Negative) U Marijuana (THC) Screen (Negative) Point of Care Testing Breathalizer 0 Urine Dip Bedside Urine Glucose 500 mg/dl Bedside Urine Bilirubin - Negative Bedside Urine Ketone - Negative Urine Specific [place] 1.025 Bedside Urine Occult Blood - Negative Bedside Urine pH 6.0 Bedside Urine Protein - Negative Bedside Urine Urobilinogen - Negative Bedside Urine Nitrite - Negative Bedside Urine Leukocytes - Negative Esterase Point of care testing: Point of Care Testing Breathalizer 0 Urine Dip Bedside Urine Glucose 500 mg/dl Bedside Urine Bilirubin - Negative Bedside Urine Ketone - Negative Urine Specific [place] 1.025 Bedside Urine Occult Blood - Negative Bedside Urine pH 6.0 Bedside Urine Protein - Negative Bedside Urine Urobilinogen - Negative Bedside Urine Nitrite - Negative Bedside Urine Leukocytes - Negative Esterase MDM Narrative Medical decision making narrative: Ever seen it sign out from day provider. I have seen evaluated patient myself. She stated that she does not trust herself at home. He [facility] actually [facility] have a bed for her. We unfortunately do not have any social work available for intake. [facility] is aware of this. They will accept into intake when she arrives. His her bed will be available around noon on 08/23/2018. (Anaid-social work) Discharge Plan Departure Patient Disposition: Home Clinical Impression: Depression, Suicide ideation, Anxiety Discharge Date/Time: 08/23/18 09:45 Interventions: ED Discharge Assessment Last Done: 08/23/18 09:44 Instructions: DI for Anxiety -- Adult Activity Restrictions/Additional Instructions: You are to go to [facility] located at [address] [place] [address] after discharge from the ER. They are expecting you at noon. You are to be taken there by your friend that picked you up from the hospital. Please return to the hospital if you have any further problems. Prescriptions: No Action metformin 1,000 mg tablet 1,000 mg PO BIDCC Qty: 180 RF: 1 blood-glucose meter [True Metrix Air Glucose Meter] kit .ROUTE .MEDSUPPLY Qty: 1 RF: 0 sumatriptan succinate 100 mg tablet 100 mg PO PRN PRN (Reason: Migraine Headache) RF: 0 diphenhydramine-acetaminophen [Tylenol PM Extra Strength] 25-500 mg Tablet 1 tab PO BEDTIME RF: 0
[2018-08-22 14:33] VITALS: BP 135/96; PULSE 96; RESP 18; TEMP 37.3; O2SAT 98; BMI 54.6
[2018-08-22 15:26] LABS: Urine Amphetamines Negative (Negative); Urine Barbiturates Negative (Negative); Urine Benzodiazepines Negative (Negative); Urine Cocaine Negative (Negative); Urine MDMA Negative (Negative); Urine Methadone Negative (Negative); Urine Methamphetamines Negative (Negative); Urine Morphine/Opi cutoff 2000 Negative (Negative); Urine Oxycodone Negative (Negative); Urine Phencyclidine Negative (Negative); Urine Tetrahydrocannabinol Negative (Negative); Urine Tricyclic Antidepressant Negative (Negative)
[2018-08-22 16:00] LABS: Add Manual Diff / Slide Review NO; Basophils Percent Auto 0.6 % (0-2); Eosinophils Percent Auto 1.2 % (2-4); Hematocrit 44.1 % (36-46); Hemoglobin 14.8 g/dL (12.0-16.0); Lymphocytes Percent Auto 25.1 % (25-40); Mean Corpuscular HGB Conc 33.6 % (30-36); Mean Corpuscular Hemoglobin 28.9 PG (26-34); Mean Corpuscular Volume 86.2 fL (80-100); Monocytes Percent Auto 7.6 % (3-14); Neutrophils Absolute Auto 7400 /uL (1500-7000); Neutrophils Percent Auto 65.5 % (50-75); Platelet Count 340 X10^3/uL (150-400); Red Blood Cell Count 5.11 X10^6/uL (4.0-5.2); Red Cell Distribution Width 13.3 % (11.6-14.8); White Blood Cell Count 11.3 X10^3/uL (4.5-11.0)
[2018-08-22 16:15] LABS: Lactate (Lactic Acid) 1.3 mmol/L (0.7-2.1)
[2018-08-22 16:18] LABS: Acetaminophen < 10 ug/mL (10-30); Alanine Aminotransferase 20 IU/L (9-52); Albumin 4.6 g/dL (3.5-5.0); Albumin Globulin Ratio 1.3 (1.0-2.8); Alkaline Phosphatase 82 U/L (38-126); Aspartate Aminotransferase 19 IU/L (14-36); Bilirubin Total 0.3 mg/dL (0.2-1.3); Blood Urea Nitrogen 9 mg/dL (7-17); Carbon Dioxide 22 mmol/L (22-32); Chloride 104 mmol/L (98-107); Estimated Glomerular Filt Rate > 60.0 mL/min (>60); Globulin 3.6 g/dL (1.7-4.1); Glucose 154 mg/dL (70-100); HEMOLYSIS < 15 (0-50); Lipase 43 U/L (23-300); Potassium 3.8 mmol/L (3.4-5.1); Salicylate < 1.0 mg/dL (<20); Sodium 139 mmol/L (137-145); Total Protein 8.2 g/dL (6.3-8.2)
[2018-08-22 16:20] VITALS: BP 124/81; PULSE 96; RESP 17; TEMP 36.8; O2SAT 97
[2018-08-22 16:35] LABS: Procalcitonin < 0.05 ng/mL (<0.5)
[2018-08-22 17:25] LABS: Thyroid Stimulating Hormone 1.49 uIU/mL (0.47-4.68)
[2018-08-22 18:00] VITALS: BP 119/82; PULSE 89; RESP 16; TEMP 36.7; O2SAT 97
--- NOTE | 2018-08-22 19:34 | PC.NURSE ---
CDP Paged out
--- NOTE | 2018-08-22 20:00 | PC.NURSE ---
Spoke with Anaid the social human services assistants at [facility]. The pt is voluntary so the dcr will not come evaluate the pt and we do not have social work to eval pt so we can not do an admit. Anaid came up with a plan if the pt was voluntary and felt safe going to [facility] tomorrow that she could have an evaluation at 1200. At this time this would take approx 1 hour and then a decision would be made to admit the pt or not. The patient,patients friend who was willing to drive the pt,Anaid at [facility] and the ED provider all felt as though the pt was safe to go to [facility] 08/23/18 at 1200. Pt was to leave here with her friend at approx 1000 to go to [facility]. Anaid gave the address [address] [place] [address] and phone number to give to the patient. Anaid asked that we hax preg,cbc,cmp,tox screen,bal,ua,vital signs,h/p and face sheet. Pt was going to stay in the ED while waiting to go to [facility]
[2018-08-22 20:06] VITALS: BP 123/86; PULSE 96; RESP 18; TEMP 36.7; O2SAT 97
[2018-08-22 20:35] LABS: Pregnancy Test Urine Negative (Negative)
--- NOTE | 2018-08-22 21:10 | PC.NURSE ---
Metformin given to pt,unable to scan as it was ordered for tomorrow. Cancelled original order,attempted to enter new order for now and was unable to .
[2018-08-22] MEDS: METFORMIN HCL 500 MG TABLET PO (21:17)
--- NOTE | 2018-08-22 21:17 | PC.NURSE ---
Pt has hospital bed from floor,offered drinks,pt requsested that her friend bring her a pop. Pt has yogurt and cheese in room.
[2018-08-22 22:50] VITALS: BP 113/72; PULSE 90; RESP 17; O2SAT 97
--- NOTE | 2018-08-23 08:01 | PC.NURSE ---
pt aware of plan for today, pt to follow up in [facility] at 10am. requesting metformin 500mg po routine meds.
[2018-08-23 08:02] VITALS: BP 128/76; PULSE 94; RESP 18; TEMP 36; O2SAT 99
[2018-08-23] MEDS: METFORMIN HCL 500 MG TABLET PO (08:25)
--- NOTE | 2018-08-23 08:28 | PC.NURSE ---
Brought breakfast tray to patient
== END 2018-08-23 09:45 | disposition home or self-care (01) ==
PROVIDERS: Emergency Medicine; Emergency Provider Emergency Medicine; Family Provider Family Medicine; PCP Family Medicine
DX: F32.9 Major depressive disorder, single episode, unspecified (principal); R45.851 Suicidal ideations; F41.9 Anxiety disorder, unspecified
CPT/HCPCS: 36415; 76642; 80053; 80305; 80329; 81003; 81025; 82075; 83605; 83690; 84145; 84443; 85025; 99285; G0480

== ENCOUNTER → 2018-09-06 11:57 | Outpatient (CLI) | payer OTHER, MEDICAID, SELFPAY | PROVIDERS: Family Provider Family Medicine; PCP Family Medicine; Visit Provider Family Medicine | DX: C50.912 Malignant neoplasm of unspecified site of left female breast (principal) | CPT/HCPCS: 87070; 87075; 87077; 87147; 87186; 87205 ==

== ENCOUNTER → 2018-10-10 16:23 | Outpatient (CLI) | payer OTHER, MEDICAID, SELFPAY ==
[2018-10-10 17:56] LABS: Add Manual Diff / Slide Review NO; Basophils Absolute Auto 0 /uL (0-100); Basophils Percent Auto 0.5 % (0-2); Eosinophils Absolute Auto 300 /uL (0-450); Eosinophils Percent Auto 3.3 % (2-4); Hematocrit 42.9 % (36-46); Hemoglobin 14.1 g/dL (12.0-16.0); Lymphocytes Absolute Auto 2800 /uL (1100-4500); Lymphocytes Percent Auto 30.5 % (25-40); Mean Corpuscular HGB Conc 32.9 % (30-36); Mean Corpuscular Hemoglobin 28.3 PG (26-34); Mean Corpuscular Volume 86.2 fL (80-100); Monocytes Absolute Auto 600 /uL (0-900); Monocytes Percent Auto 6.8 % (3-14); Neutrophils Absolute Auto 5500 /uL (1500-7000); Neutrophils Percent Auto 58.9 % (50-75); Platelet Count 272 X10^3/uL (150-400); Red Blood Cell Count 4.97 X10^6/uL (4.0-5.2); Red Cell Distribution Width 12.4 % (11.6-14.8); White Blood Cell Count 9.3 X10^3/uL (4.5-11.0)
[2018-10-10 18:03] LABS: HEMOLYSIS < 15 (0-50); Iron 42 ug/dL (37-170)
[2018-10-10 18:16] LABS: Percent Iron Saturation 15 % (15-50); Total Iron Binding Capacity 274 ug/dL (265-497); Transferrin 221 mg/dL (206-381)
[2018-10-10 18:28] LABS: Hemoglobin A1C% w Est Avg Glu 7.2 % (4.0-6.0)
[2018-10-10 18:38] LABS: Ferritin 52.8 ng/mL (6.27-137)
[2018-10-10 18:52] LABS: Vitamin B12 493 pg/mL (239-931)
== END ==
PROVIDERS: PCP Family Medicine; Visit Provider Family Medicine
DX: E11.9 Type 2 diabetes mellitus without complications (principal); R19.7 Diarrhea, unspecified; Z86.2 Personal history of diseases of the blood and blood-forming organs and certain disorders involving the immune mechanism
CPT/HCPCS: 36415; 82607; 82728; 83036; 83540; 83550; 85025

== ENCOUNTER → 2018-10-30 15:14 | Outpatient (CLI) | payer OTHER, MEDICAID, SELFPAY ==
[2018-10-30 16:14] LABS: Appearance Urine UA CLEAR; Bilirubin Urine UA NEGATIVE (NEGATIVE); Color Urine UA YELLOW; Glucose Urine UA 3+ g/dL (Negative); Ketones Urine UA NEGATIVE (NEGATIVE); Leukocyte Esterase Urine UA NEGATIVE (NEGATIVE); Nitrite Urine UA NEGATIVE (Negative); Occult Blood Urine UA NEGATIVE (Negative); Protein Urine UA NEGATIVE (Negative); Specific Gravity Urine UA 1.025 (1.000-1.035); Urobilinogen Urine UA 0.2 E.U./dL (0.2); pH Urine UA 5.5 (4.5-8.0)
[2018-10-30 16:23] LABS: Bacteria Urine Moderate (10-30); RBC Urine 0-1/HPF (0-5/HPF); WBC Urine 1-5/HPF (0-5/HPF)
[2018-10-30 16:24] LABS: Culture Indicated Urine Specimen Cultured; Squamous Epithelial Cell Urine 1-5 /HPF; Transitional Epi Cells Urine 1-5/HPF (0-5/HPF)
== END ==
PROVIDERS: PCP Family Medicine; Visit Provider Family Medicine
DX: R39.89 Other symptoms and signs involving the genitourinary system (principal)
CPT/HCPCS: 81001; 87086

== ENCOUNTER 2019-01-14 22:19 | Emergency (ER) | payer OTHER, MEDICAID, SELFPAY ==
[2019-01-14 22:40] VITALS: BP 136/74; PULSE 99; RESP 16; TEMP 36.6; O2SAT 97; BMI 56.3
[2019-01-14] MEDS: HYDROCODONE/ACET 5/325 TABLET 1 TAB PO (23:26)
[2019-01-14] MEDS: DOXYCYCLINE HYCLATE 100 MG TABLET PO (23:26)
[2019-01-14 23:37] VITALS: BP 148/95; PULSE 90; RESP 16; TEMP 36.7; O2SAT 99
--- NOTE | 2019-01-15 04:10 | ED_ITS ---
HPI - Skin/Abscess/Foreign Bdy General Chief complaint: Skin/Abscess/Foreign Body Stated complaint: CYST VAGINA AND BUTT Time Seen by Provider: 01/14/19 22:24 Source: patient Mode of arrival: ambulatory Limitations: no limitations History of Present Illness HPI narrative: 38-year-old female nonsmoker with history of morbid obesity, breast cancer and MRSA presents with 2 painful small skin lesions consistent with abscess the past few days. She tried popping them on her own but unsuccessfully. One is on her left anterior abdominal wall in her suprapubic region and the other is on her left buttock. She denies any systemic findings such as fever or shaking chills. She has no nausea or vomiting. MD complaint: abscess/boil Onset (ago): day(s) Tetanus up to date: yes Location: buttocks Severity: mild Quality: stabbing Pain Consistency: constant Relieving factors: none Exacerbating factors: palpation Associated symptoms: denies other symptoms Treatments prior to arrival: none Related Data Home Medications Medication Instructions Recorded Confirmed diphenhydramine-acetaminophen 1 tab PO BEDTIME 08/22/18 12/19/18 [Tylenol PM Extra Strength] sumatriptan succinate 100 mg PO PRN PRN 08/22/18 12/19/18 Previous Rx's Medication Instructions Recorded blood-glucose meter kit #1 each 05/02/18 hydroxyzine HCl 25 mg tablet 50 mg PO Q4H PRN #120 tab 08/31/18 risperidone 3 mg tablet 3 mg PO DAILY #30 tab 10/10/18 oxycodone 5 mg capsule 5 mg PO Q4-6H PRN #10 cap 10/24/18 citalopram 10 mg tablet 20 mg PO DAILY #60 tab 11/09/18 disposable gloves package #50 each 12/05/18 metformin 1,000 mg PO BIDCC #180 tab 12/31/18 doxycycline hyclate 100 mg PO BID #20 tab 01/14/19 Allergies Allergy/AdvReac Type Severity Reaction Status Date / Time sulfamethoxazole Allergy Intermediate Hives Verified 01/14/19 22:59 [From Bactrim] trimethoprim [From Bactrim] Allergy Intermediate Hives Verified 01/14/19 22:59 lidocaine Allergy Verified 01/14/19 22:59 silver AdvReac Intermediate Hives, Verified 12/19/18 13:39 difficulty breathing Review of Systems Constitutional Denies chills, Denies fever(s), Denies lethargy and Denies weakness Eyes Denies change in vision, Denies eye discharge, Denies irritation and Denies loss of vision ENT Ears, Nose, Mouth, and Throat: Denies change in voice, Denies neck pain and Denies sore throat Cardiovascular Denies chest pain, Denies irregular heart rhythm, Denies lightheadedness, Denies palpitations, Denies dyspnea, Denies dyspnea on exertion and Denies orthopnea Respiratory Denies cough, Denies dyspnea, Denies dyspnea on exertion and Denies wheezing Gastrointestinal Gastrointestinal: Denies abdominal pain, Denies change in bowel habits, Denies diarrhea, Denies nausea and Denies vomiting Genitourinary Denies hematuria, Denies flank pain, Denies urinary incontinence and Denies urinary urgency Musculoskeletal Denies neck pain Integumentary/Breasts Denies pruritus, Reports erythema, Denies rash, Reports skin pain, Reports skin swelling and Denies wounds Neurologic Denies confusion, Denies loss of vision and Denies weakness Psychiatric Denies anxiety, Denies confusion, Denies depression, Denies homicidal ideation and Denies suicidal ideation Endocrine Denies palpitations Hematologic/Lymphatic Denies easy bruising Allergic/Immunologic Denies wheezing [facility] Medical History Invasive ductal carcinoma of left breast, stage 2 (Resolved) Abnormal chest xray (Chronic ~2001) Acne (Chronic) Anemia (Chronic ~1991) Anxiety (Chronic) Asthma (Chronic) Chlamydia (Chronic ~1998) Depression (Chronic) Diabetes mellitus (Chronic ~2015) Genital warts (Chronic ~2015) Heavy menstrual period (Chronic) Irregular menses (Chronic) PTSD (post-traumatic stress disorder) (Chronic) Painful menstrual periods (Chronic) Substance abuse (Chronic) Abnormal Pap smear of cervix (Resolved) Mumps (Resolved ~1992) Ovarian cyst (Resolved) Surgical History S/P mastectomy (Chronic) Cyst (Resolved ~2015) Status post delivery (~1999) Status post delivery (~2008) Status post colonoscopy (11/25/16) Family History Father Diabetes mellitus Heart disease Mental health problem Grandfather Cancer Diabetes mellitus Heart disease High cholesterol Grandmother Cancer Heart disease Essential hypertension High cholesterol Cerebrovascular accident (CVA), unspecified mechanism Mother Mental health problem Social History Smoking Status: Former smoker alcohol intake: never substance use type: does not use and former substance user Family History Father Diabetes mellitus Heart disease Mental health problem Grandfather Cancer Diabetes mellitus Heart disease High cholesterol Grandmother Cancer Heart disease Essential hypertension High cholesterol Cerebrovascular accident (CVA), unspecified mechanism Mother Mental health problem Social History Smoking Status: Former smoker alcohol intake: never substance use type: does not use and former substance user Exam Narrative Exam Narrative: GEN: AOx3 and in mild distress, morbidly obese EYES: Pupils are equal, round, and reactive to light and accommodation. Extraoccular muscles are intact bilaterally. There is no subconjunctival hemorrhage or exudate. CHEST: Lungs are clear to auscultation bilaterally and free of wheezes, rales, or rhonchi. Heart rate is regular rhythm, there are no murmurs, clicks, rubs, or gallops. There is no chest wall tenderness. ABD: Abdomen is soft and nontender. There is no guarding or rebound. Bowel sounds are normal in all 4 quadrants. There is no mass or organomegaly. EXT: Full painless ROM of all extremities with no loss of sensation or strength. SKIN: 0.5cm tender, fluctuant lesion on L buttock just below gluteal fold. A second lesion on L lower anterior abdominal wall near C section scar, 1cm area of induration and mild erythema, small central draining area. Initial Vital Signs Initial Vital Signs: Vital Signs Temperature 97.9 F 01/14/19 22:40 Pulse Rate 99 H 01/14/19 22:40 Respiratory Rate 16 01/14/19 22:40 Blood Pressure 136/74 01/14/19 22:40 Pulse Oximetry 97 01/14/19 22:40 Procedures Abscess I/D Site: abdomen Side (if applicable): left Local Anesthetic: bupivacaine 0.5% Amount of anesthesia used (mL): 3 Technique: needle aspiration Amount of fluid expressed (mL): 1 Irrigation: No Packing used?: none Course Orders Ordered: ED Orders 01/14/19 23:39 Wound Culture and Gram Stain Stat Wound Culture and Gram Stain Stat Discontinued Medications Hydrocodone Bitart/Acetaminophen ([place] 5/325) 1 tab PO NOW ONE Stop: 01/14/19 23:15 Last Admin: 01/14/19 23:26 Dose: 1 tab Doxycycline Hyclate (Vibramycin) 100 mg PO NOW ONE Stop: 01/14/19 23:16 Last Admin: 01/14/19 23:26 Dose: 100 mg Vital Signs - 8 hr 01/14/19 22:40 01/14/19 23:37 Temperature 97.9 F 98.1 F Pulse Rate 99 H 90 Respiratory Rate 16 16 Blood Pressure 136/74 148/95 H Pulse Oximetry 97 99 Discharge Plan Departure Patient Disposition: Home Clinical Impression: Cutaneous abscess Qualifiers: Site of cutaneous abscess: buttock Qualified Code(s): L02.31 - Cutaneous abscess of buttock Discharge Date/Time: 01/14/19 23:34 Interventions: ED Discharge Assessment Last Done: 01/14/19 23:37 Instructions: DI for Skin Abscess Activity Restrictions/Additional Instructions: *You have been diagnosed with [acute superficial cutaneous abscess lower ab dominal wall and left buttock] *What to do: *Take medications as directed: Your antibiotic has been electronically transmitted to [facility] in [place] *Follow up with your primary care provider in 2-3 days, call for an appointment. Let them know you were seen in the Emergency Department and that we ask that you be seen in follow up *Return to ER if you should have any new, worsening or concerning symptoms Prescriptions: New doxycycline hyclate 100 mg tablet 100 mg PO BID Qty: 20 RF: 0 No Action hydroxyzine HCl 25 mg tablet 50 mg PO Q4H PRN (Reason: anxiety) Qty: 120 RF: 0 disposable gloves package .ROUTE .MEDSUPPLY Qty: 50 RF: 0 metformin 1,000 mg tablet 1,000 mg PO BIDCC Qty: 180 RF: 1 blood-glucose meter [True Metrix Air Glucose Meter] kit .ROUTE .MEDSUPPLY Qty: 1 RF: 0 risperidone 3 mg tablet 3 mg PO DAILY Qty: 30 RF: 1 citalopram 10 mg tablet 20 mg PO DAILY Qty: 60 RF: 2 oxycodone 5 mg capsule 5 mg PO Q4-6H PRN (Reason: pain) Qty: 10 RF: 0 sumatriptan succinate 100 mg tablet 100 mg PO PRN PRN (Reason: Migraine Headache) RF: 0 diphenhydramine-acetaminophen [Tylenol PM Extra Strength] 25-500 mg Tablet 1 tab PO BEDTIME RF: 0 Referrals: Bonnie Goff DO [Primary Care Provider] -
== END 2019-01-14 23:34 | disposition home or self-care (01) ==
PROVIDERS: Emergency Provider Emergency Medicine; PCP Family Medicine
DX: L02.31 Cutaneous abscess of buttock (principal)
CPT/HCPCS: 10060; 87070; 87075; 87077; 87186; 87205; 99282; 99283

== ENCOUNTER → 2019-03-15 10:27 | Outpatient (CLI) | payer OTHER, MEDICAID, SELFPAY ==
[2019-03-15 11:07] LABS: Hemoglobin A1C% w Est Avg Glu 7.8 % (4.0-6.0)
[2019-03-15 11:38] LABS: Alanine Aminotransferase 19 IU/L (9-52); Albumin 4.3 g/dL (3.5-5.0); Albumin Globulin Ratio 1.3 (1.0-2.8); Alkaline Phosphatase 112 U/L (38-126); Aspartate Aminotransferase 16 IU/L (14-36); Bilirubin Total 0.2 mg/dL (0.2-1.3); Blood Urea Nitrogen 8 mg/dL (7-17); Calcium 10.1 mg/dL (8.4-10.2); Carbon Dioxide 22 mmol/L (22-32); Chloride 105 mmol/L (98-107); Estimated Glomerular Filt Rate > 60.0 mL/min (>60); Globulin 3.2 g/dL (1.7-4.1); Glucose 160 mg/dL (70-100); HEMOLYSIS < 15 (0-50); Potassium 4.1 mmol/L (3.4-5.1); Sodium 140 mmol/L (137-145); Total Protein 7.5 g/dL (6.3-8.2)
== END ==
PROVIDERS: PCP Family Medicine; Visit Provider Family Medicine
DX: E11.9 Type 2 diabetes mellitus without complications (principal)
CPT/HCPCS: 36415; 80053; 83036

== ENCOUNTER → 2019-06-19 15:14 | Outpatient (CLI) | payer OTHER, MEDICAID, SELFPAY ==
[2019-06-19 16:07] LABS: Add Manual Diff / Slide Review NO; Basophils Absolute Auto 0 /uL (0-100); Basophils Percent Auto 0.5 % (0-2); Eosinophils Absolute Auto 100 /uL (0-450); Eosinophils Percent Auto 1.6 % (2-4); Hematocrit 41.6 % (36-46); Hemoglobin 13.9 g/dL (12.0-16.0); Lymphocytes Absolute Auto 2800 /uL (1100-4500); Lymphocytes Percent Auto 32.3 % (25-40); Mean Corpuscular HGB Conc 33.4 % (30-36); Mean Corpuscular Volume 83.7 fL (80-100); Monocytes Absolute Auto 500 /uL (0-900); Monocytes Percent Auto 6.3 % (3-14); Neutrophils Absolute Auto 5100 /uL (1500-7000); Neutrophils Percent Auto 59.3 % (50-75); Platelet Count 301 X10^3/uL (150-400); Red Blood Cell Count 4.97 X10^6/uL (4.0-5.2); Red Cell Distribution Width 14.1 % (11.6-14.8); White Blood Cell Count 8.6 X10^3/uL (4.5-11.0)
[2019-06-19 16:22] LABS: Hemoglobin A1C% w Est Avg Glu 7.9 % (4.0-6.0)
[2019-06-19 16:37] LABS: HEMOLYSIS < 15 (0-50); Iron 63 ug/dL (37-170)
[2019-06-19 16:39] LABS: Cholesterol 218 mg/dL (140-199); HDL Cholesterol 46 mg/dL (40-60); LDL Cholesterol Calculated 112 mg/dL (<100); Triglycerides 300 mg/dL (35-150)
[2019-06-19 16:43] LABS: Rheumatoid Factor < 8.6 IU/mL (<12.0)
[2019-06-19 16:48] LABS: Percent Iron Saturation 22 % (15-50); Total Iron Binding Capacity 290 ug/dL (265-497); Transferrin 252 mg/dL (206-381)
[2019-06-19 17:09] LABS: TSH w/ Reflex to FT4 1.21 uIU/mL (0.47-4.68)
[2019-06-19 17:15] LABS: Ferritin 74.1 ng/mL (6.27-137)
[2019-06-19 18:42] LABS: Creatinine Urine Random 185.6 mg/dL
[2019-06-19 18:47] LABS: Microalbumi Creatinin Ratio Ur 7.5 ug/mg CR (<30); Microalbumin Urine Random 1.4 mg/dL (0-1.6)
[2019-06-23 15:12] LABS: CCP Antibody (IgG) < 16 Units (< 20)
== END ==
PROVIDERS: PCP Family Medicine; Visit Provider Family Medicine
DX: E11.9 Type 2 diabetes mellitus without complications (principal); Z86.2 Personal history of diseases of the blood and blood-forming organs and certain disorders involving the immune mechanism; E66.9 Obesity, unspecified; M25.50 Pain in unspecified joint; I10 Essential (primary) hypertension
CPT/HCPCS: 36415; 80061; 82043; 82570; 82728; 83036; 83540; 83550; 84443; 85025; 86200; 86430

== ENCOUNTER → 2019-07-09 15:11 | Outpatient (CLI) | payer OTHER, MEDICAID, SELFPAY ==
--- NOTE | 2019-07-09 16:21 | PM.TREADMILL ---
Cardiac Stress Test Report Referral & Results Date Patient Seen: 07/09/19 Requesting provider: Bonnie Goff Indication: Chest pain Rest ECG: Unremarkable Procedure Note: Today following both written and verbal informed consent, the patient was exercised according to a standard Seth protocol. The patient exercised for a total of 3 minutes 36 seconds achieving a maximum heart rate of 164. Patient's maximum systolic blood pressure was 172. This was an estimated 4.6 MET's. There are no ST-T segment changes Normal heart rate and blood pressure response given exertion Functional aerobic impairment rates about 50% on the sedentary scale Rare PVC Impression: No evidence of ischemia Limited exercise capacity Please note: Actual ECG tracings can be found in the PACS system.
== END ==
PROVIDERS: PCP Family Medicine; Visit Provider Family Medicine
DX: R07.9 Chest pain, unspecified (principal)
CPT/HCPCS: 93016; 93017; 93018

== ENCOUNTER → 2019-08-23 15:54 | Outpatient (CLI) | payer OTHER, MEDICAID, SELFPAY ==
[2019-08-23 17:17] LABS: Alanine Aminotransferase 22 IU/L (<35); Albumin 4.7 g/dL (3.5-5.0); Albumin Globulin Ratio 1.4 (1.0-2.8); Alkaline Phosphatase 104 U/L (38-126); Amylase 41 U/L (30-110); Aspartate Aminotransferase 22 IU/L (14-36); BUN Creatinine Ratio 11.4 (6-22); Bilirubin Total 0.3 mg/dL (0.2-1.3); Blood Urea Nitrogen 8 mg/dL (7-17); Calcium 10.5 mg/dL (8.4-10.2); Carbon Dioxide 20 mmol/L (22-32); Chloride 104 mmol/L (98-107); Estimated Glomerular Filt Rate > 60.0 mL/min (>60); Globulin 3.3 g/dL (1.7-4.1); Glucose 166 mg/dL (70-100); HEMOLYSIS < 15 (0-50); Lipase 74 U/L (23-300); Potassium 4.2 mmol/L (3.4-5.1); Sodium 139 mmol/L (137-145)
== END ==
PROVIDERS: PCP Family Medicine; Visit Provider Family Medicine
DX: R10.9 Unspecified abdominal pain (principal)
CPT/HCPCS: 36415; 80053; 82150; 83690

== ENCOUNTER 2019-09-09 19:11 | Emergency (ER) | payer OTHER, MEDICAID, SELFPAY ==
[2019-09-09 19:15] VITALS: BP 136/95
--- NOTE | 2019-09-09 19:18 | ED.PSYCH ---
HPI - Psych <Jim Aragon, DO - Last Filed: 09/10/19 07:37> General Chief Complaint: Psychiatric Symptoms Stated Complaint: NOT WANTING TO LIVE ANYMORE Time Seen by Provider: 09/09/19 19:11 Source: patient Mode of arrival: Ambulatory Limitations: no limitations History of Present Illness HPI Narrative: 39-year-old female former smoker with a history of depression and possibly schizophrenia presents with rapidly worsening depression and the development of suicidal ideation. She denies any specific triggers. She does state she has multiple ideas or plans including overdosing on pills, jumping out of her car among others. She was admitted to the [facility] under similar circumstances about 1 year ago. She states that she does have access to a therapist whom she sees weekly and a prescribing psychiatrist whom she sees monthly. She has been taking her medications as directed but despite that her visual and auditory hallucinations are increasing. She states that the auditory hallucinations are telling her to find a way to sleep permanently so the voices will go away. She is otherwise well and free of complaint MD complaint: suicidal ideation and feels depressed Onset (ago): day(s) Duration: getting worse History of same: Yes Relieving factors: none Exacerbating factors: none Associated psychiatric symptoms: depression, suicidal ideation, auditory hallucinations and visual hallucinations Associated symptoms: denies other symptoms Treatments prior to arrival: none If self harm: admits thoughts of self harm and has plan Related Data Home Medications Medication Instructions Recorded Confirmed diphenhydramine-acetaminophen 1 tab PO BEDTIME 08/22/18 09/09/19 [Tylenol PM Extra Strength] anastrozole 1 mg tablet 1 mg PO DAILY 06/19/19 09/09/19 citalopram 20 mg tablet 30 mg PO DAILY tab 06/19/19 09/09/19 bupropion HCl 150 mg 24 hr tablet, 300 mg PO QAM tab 07/19/19 09/09/19 extended release ibuprofen 800 mg tablet 800 mg PO Q8H 07/19/19 09/09/19 Previous Rx's Medication Instructions Recorded disposable gloves #50 each 12/05/18 blood-glucose meter #1 each 02/26/19 diclofenac sodium 1.5 % solution 6 spray TOP Q8H PRN #1 each 04/10/19 topical kit Lancets #100 each 06/12/19 blood sugar diagnostic #100 each 06/12/19 albuterol sulfate 90 mcg/actuation 2 puff INHALATION Q4HP PRN #1 each 06/19/19 aerosol inhaler inhalational spacing device #1 each 06/19/19 empagliflozin 10 mg tablet 10 mg PO DAILY #30 tab 07/19/19 metformin 1,000 mg tablet 1,000 mg PO BIDCC #180 tab 08/15/19 diphenoxylate-atropine 2.5 1 tab PO BID PRN #20 tab 08/23/19 mg-0.025 mg tablet oxycodone 5 mg capsule 5 mg PO Q4-6H PRN #20 cap 08/23/19 Allergies Allergy/AdvReac Type Severity Reaction Status Date / Time sulfamethoxazole Allergy Intermediate Hives Verified 09/09/19 19:24 [From Bactrim] trimethoprim [From Bactrim] Allergy Intermediate Hives Verified 09/09/19 19:24 lidocaine Allergy Verified 09/09/19 19:24 silver AdvReac Intermediate Hives, Verified 09/09/19 19:24 difficulty breathing Review of Systems <Jim Aragon, - Last Filed: 09/10/19 07:37> Constitutional Constitutional: Denies chills, Denies fatigue, Denies fever(s), Denies frequent falls, Denies lethargy and Denies weakness Eyes Eyes: Denies change in vision, Denies eye discharge, Denies irritation and Denies loss of vision ENT Ears, Nose, Mouth, and Throat: Denies change in voice, Denies dizziness, Denies neck pain, Denies sore throat and Denies throat swelling Cardiovascular Cardiovascular: Denies chest pain, Denies irregular heart rhythm, Denies lightheadedness, Denies palpitations, Denies dyspnea, Denies dyspnea on exertion and Denies orthopnea Respiratory Respiratory: Denies cough, Denies dyspnea, Denies dyspnea on exertion and Denies wheezing Gastrointestinal Gastrointestinal: Denies abdominal pain, Denies change in bowel habits, Denies diarrhea, Denies nausea and Denies vomiting Genitourinary Genitourinary: Denies hematuria, Denies flank pain, Denies urinary incontinence and Denies urinary urgency Musculoskeletal Musculoskeletal: Denies back pain, Denies muscle weakness, Denies neck pain, Denies numbness and Denies tingling Integumentary/Breasts Skin/Breast: Denies pruritus, Denies erythema, Denies rash and Denies wounds Neurologic Neurologic: Denies behavioral changes, Denies confusion, Denies dizziness, Denies frequent falls, Denies loss of vision, Denies numbness, Denies tingling and Denies weakness Psychiatric Psychiatric: Denies anxiety, Denies behavioral changes, Denies confusion, Reports depression, Reports auditory hallucinations, Reports hopelessness, Reports visual hallucinations, Reports hallucinations, Denies homicidal ideation and Reports suicidal ideation Endocrine Endocrine: Denies fatigue, Denies flushing and Denies palpitations Hematologic/Lymphatic Hematologic/Lymphatic: Denies easy bruising Allergic/Immunologic Allergic/Immunologic: Denies urticaria, Denies throat swelling and Denies wheezing Patient History <Jim Aragon DO - Last Filed: 09/10/19 07:37> Medical History Abnormal chest xray (Chronic ~2001) Abnormal Pap smear of cervix (Resolved) Acne (Chronic) Anemia (Chronic ~1991) Anxiety (Chronic) Asthma (Chronic) Chlamydia (Chronic ~1998) Depression (Chronic) Diabetes mellitus (Chronic ~2015) Genital warts (Chronic ~2015) Heavy menstrual period (Chronic) Invasive ductal carcinoma of left breast, stage 2 (Resolved) Irregular menses (Chronic) Mumps (Resolved ~1992) Ovarian cyst (Resolved) Painful menstrual periods (Chronic) PTSD (post-traumatic stress disorder) (Chronic) Substance abuse (Chronic) Surgical History Cyst (Resolved ~2015) History of bilateral oophorectomies (Resolved ~2018) S/P mastectomy (Resolved) Status post bilateral mastectomy (Resolved ~12/2018) Status post delivery (~1999) Status post delivery (~2008) Status post colonoscopy (11/25/16) Family History Father Diabetes mellitus Heart disease Mental health problem Alcoholic Grandfather Cancer Diabetes mellitus Heart disease High cholesterol Grandmother Cancer Heart disease Essential hypertension High cholesterol Cerebrovascular accident (CVA), unspecified mechanism Mother Mental health problem Alcoholic Social History Smoking Status: Former smoker alcohol intake: never substance use type: does not use and former substance user Smoking Status: Former smoker Substance Use Type: does not use Exam <Jim Aragon DO - Last Filed: 09/10/19 07:37> Narrative Exam Narrative: GENERAL: [39] year old patient appears stated age. Morbidly obese, tearful HEAD: Atraumatic. Normocephalic. EYES: Pupils equal round and reactive. Extraocular motions intact. No scleral icterus. No injection or drainage. ENT: Nose without bleeding, purulent drainage. Throat without erythema, tonsillar hypertrophy or exudate. Airway patent. NECK: Trachea midline. Non tender CARDIOVASCULAR: Regular rate and rhythm without murmurs, gallops, or rubs. RESPIRATORY: Clear to auscultation. Breath sounds equal bilaterally. No wheezes, rales, or rhonchi. GASTROINTESTINAL: Abdomen soft, non-tender, nondistended. EXTREMITIES: No edema or joint tenderness. BACK: Nontender without deformity or crepitance. No flank tenderness. NEURO: AOx3. SKIN: No rash or erythema of visible areas Initial Vital Signs Initial Vital Signs: Vital Signs Blood Pressure 136/95 H 09/09/19 19:15 <Ann Peña DO - Last Filed: 09/10/19 13:40> Initial Vital Signs Initial Vital Signs: Vital Signs Blood Pressure 136/95 H 09/09/19 19:15 Course <Jim Aragon DO - Last Filed: 09/10/19 07:37> Orders Ordered: ED Orders 09/10/19 07:[address] [facility] - Ice Cream Maker Stat Acetaminophen (Tylenol) 650 mg PO Q4HR PRN PRN Reason: Pain, Moderate (4-6) Stop: 09/11/19 20:28 Last Admin: 09/10/19 08:10 Dose: 650 mg Documented by: Admin: 09/09/19 20:43 Dose: 650 mg Documented by: ONEYDA Albuterol (Ventolin Hfa) 2 puff INH Q6HR PRN PRN Reason: Shortness Of Breath Bupropion HCl (Wellbutrin Xl) 150 mg PO DAILY [facility] Last Admin: 09/10/19 08:17 Dose: 150 mg Documented by: ONEYDA Citalopram Hydrobromide (Celexa) 30 mg PO DAILY [facility] Last Admin: 09/10/19 08:17 Dose: 30 mg Documented by: ONEYDA Diphenoxylate HCl/Atropine (Lomotil) 1 each PO Q12HR PRN PRN Reason: Diarrhea Last Admin: 09/09/19 20:47 Dose: 1 each Documented by: ONEYDA Ibuprofen (Advil) 800 mg PO Q8HR PRN PRN Reason: Pain, Moderate (4-6) Last Admin: 09/10/19 08:10 Dose: 800 mg Documented by: ONEYDA Metformin HCl (Glucophage) 1,000 mg PO 0800,1700 [facility] Last Admin: 09/10/19 08:18 Dose: 1,000 mg Documented by: Admin: 09/09/19 21:36 Dose: 1,000 mg Documented by: ONEYDA Discontinued Medications Olanzapine (Zyprexa Zydis) 20 mg PO NOW ONE Stop: 09/09/19 19:53 Last Admin: 09/09/19 19:56 Dose: 20 mg Documented by: JOEY Vital Signs Vital signs: Vital Signs - 8 hr 09/10/19 08:15 Temperature 98.1 F Pulse Rate 93 H Respiratory Rate 16 Blood Pressure [Right Arm] 137/83 Pulse Oximetry 96 <Ann Peña DO - Last Filed: 09/10/19 13:40> Orders Ordered: ED Orders 09/10/19 07:[address] [facility] - Ice Cream Maker Stat Acetaminophen (Tylenol) 650 mg PO Q4HR PRN PRN Reason: Pain, Moderate (4-6) Stop: 09/11/19 20:28 Last Admin: 09/10/19 08:10 Dose: 650 mg Documented by: Admin: 09/09/19 20:43 Dose: 650 mg Documented by: ONEYDA Albuterol (Ventolin Hfa) 2 puff INH Q6HR PRN PRN Reason: Shortness Of Breath Bupropion HCl (Wellbutrin Xl) 150 mg PO DAILY [facility] Last Admin: 09/10/19 08:17 Dose: 150 mg Documented by: ONEYDA Citalopram Hydrobromide (Celexa) 30 mg PO DAILY [facility] Last Admin: 09/10/19 08:17 Dose: 30 mg Documented by: ONEYDA Diphenoxylate HCl/Atropine (Lomotil) 1 each PO Q12HR PRN PRN Reason: Diarrhea Last Admin: 09/09/19 20:47 Dose: 1 each Documented by: ONEYDA Ibuprofen (Advil) 800 mg PO Q8HR PRN PRN Reason: Pain, Moderate (4-6) Last Admin: 09/10/19 08:10 Dose: 800 mg Documented by: ONEYDA Metformin HCl (Glucophage) 1,000 mg PO 0800,1700 [facility] Last Admin: 09/10/19 08:18 Dose: 1,000 mg Documented by: Admin: 09/09/19 21:36 Dose: 1,000 mg Documented by: ONEYDA Discontinued Medications Olanzapine (Zyprexa Zydis) 20 mg PO NOW ONE Stop: 09/09/19 19:53 Last Admin: 09/09/19 19:56 Dose: 20 mg Documented by: JOEY Vital Signs Vital signs: Vital Signs - 8 hr 09/10/19 08:15 Temperature 98.1 F Pulse Rate 93 H Respiratory Rate 16 Blood Pressure [Right Arm] 137/83 Pulse Oximetry 96 MDM - Psych <Jim Aragon DO - Last Filed: 09/10/19 07:37> Lab Data Result diagrams: 09/09/19 19:39 09/09/19 19:39 Labs: Lab Results 09/09/19 09/09/19 09/09/19 Range/Units 19:25 19:39 19:39 WBC 12.6 H (4.5-11.0) X10^3/uL RBC 5.17 (4.0-5.2) X10^6/uL Hgb 14.6 (12.0-16.0) g/dL Hct 43.2 (36-46) % MCV 83.5 (80-100) fL MCH 28.3 (26-34) PG MCHC 33.9 (30-36) % RDW 13.6 (11.6-14.8) % Plt Count 336 (150-400) X10^3/uL Neut % (Auto) 66.1 (50-75) % Lymph % (Auto) 25.4 (25-40) % [place] % (Auto) 6.6 (3-14) % Eos % (Auto) 1.2 L (2-4) % Baso % (Auto) 0.7 (0-2) % Neut # (Auto) 8300 H (6644-2662) /uL Lymph # (Auto) 3200 (8466-8771) /uL [place] # (Auto) 800 (0-900) /uL Eos # (Auto) 100 (0-450) /uL Baso # (Auto) 100 (0-100) /uL Sodium 140 (137-145) mmol/L Potassium 3.8 (3.4-5.1) mmol/L Chloride 105 (98-107) mmol/L Carbon Dioxide 20 L (22-32) mmol/L BUN 9 (7-17) mg/dL Creatinine 0.50 L (0.52-1.04) mg/dL Estimated GFR > 60.0 (>60) mL/min BUN/Creatinine Ratio 18.0 (6-22) Glucose 208 H (70-100) mg/dL Calcium 10.2 (8.4-10.2) mg/dL Total Bilirubin 0.3 (0.2-1.3) mg/dL AST 22 (14-36) IU/L ALT 22 (<35) IU/L Alkaline Phosphatase 111 (38-126) U/L Total Protein 8.9 H (6.3-8.2) g/dL Albumin 4.9 (3.5-5.0) g/dL Globulin 4.0 (1.7-4.1) g/dL Albumin/Globulin Ratio 1.2 (1.0-2.8) TSH (0.47-4.68) uIU/mL Salicylates < 1.0 (<20) mg/dL U Opiates 300ng/mL cut Negative (Negative) Ur Oxycodone Screen Negative (Negative) Urine Methadone Screen Negative (Negative) Acetaminophen < 10 L (10-30) ug/mL Ur Barbiturates Screen Negative (Negative) U Tricyclic Antidepress Negative (Negative) Ur Phencyclidine Scrn Negative (Negative) Ur Amphetamines Screen Negative (Negative) U Methamphetamines Scrn Negative (Negative) Ur MDMA Scrn (Ecstasy) Negative (Negative) U Benzodiazepines Scrn Negative (Negative) Mylo (0.6-1.2) mmol/L Urine Cocaine Screen Negative (Negative) U Marijuana (THC) Screen Negative (Negative) Ethyl Alcohol < 10 ( - 10) mg/dL 09/09/19 Range/Units 19:39 WBC (4.5-11.0) X10^3/uL RBC (4.0-5.2) X10^6/uL Hgb (12.0-16.0) g/dL Hct (36-46) % MCV (80-100) fL MCH (26-34) PG MCHC (30-36) % RDW (11.6-14.8) % Plt Count (150-400) X10^3/uL Neut % (Auto) (50-75) % Lymph % (Auto) (25-40) % [place] % (Auto) (3-14) % Eos % (Auto) (2-4) % Baso % (Auto) (0-2) % Neut # (Auto) (6453-9820) /uL Lymph # (Auto) (3809-2283) /uL [place] # (Auto) (0-900) /uL Eos # (Auto) (0-450) /uL Baso # (Auto) (0-100) /uL Sodium (137-145) mmol/L Potassium (3.4-5.1) mmol/L Chloride (98-107) mmol/L Carbon Dioxide (22-32) mmol/L BUN (7-17) mg/dL Creatinine (0.52-1.04) mg/dL Estimated GFR (>60) mL/min BUN/Creatinine Ratio (6-22) Glucose (70-100) mg/dL Calcium (8.4-10.2) mg/dL Total Bilirubin (0.2-1.3) mg/dL AST (14-36) IU/L ALT (<35) IU/L Alkaline Phosphatase (38-126) U/L Total Protein (6.3-8.2) g/dL Albumin (3.5-5.0) g/dL Globulin (1.7-4.1) g/dL Albumin/Globulin Ratio (1.0-2.8) TSH 1.62 (0.47-4.68) uIU/mL Salicylates (<20) mg/dL U Opiates 300ng/mL cut (Negative) Ur Oxycodone Screen (Negative) Urine Methadone Screen (Negative) Acetaminophen (10-30) ug/mL Ur Barbiturates Screen (Negative) U Tricyclic Antidepress (Negative) Ur Phencyclidine Scrn (Negative) Ur Amphetamines Screen (Negative) U Methamphetamines Scrn (Negative) Ur MDMA Scrn (Ecstasy) (Negative) U Benzodiazepines Scrn (Negative) Mylo < 0.2 L (0.6-1.2) mmol/L Urine Cocaine Screen (Negative) U Marijuana (THC) Screen (Negative) Ethyl Alcohol ( - 10) mg/dL Point of Care Testing Test Results Negative Urine Dip Bedside Urine Glucose 1000 mg/dl Bedside Urine Bilirubin - Negative Bedside Urine Ketone - Negative Urine Specific Leo 1.015 Bedside Urine Occult Blood +/- Bedside Urine pH 6.0 Bedside Urine Protein +/- 15 Bedside Urine Urobilinogen +/- 1mg Bedside Urine Nitrite - Negative Bedside Urine Leukocytes ++ 125 Esterase <Ann Peña, DO - Last Filed: 09/10/19 13:40> Lab Data Labs: Lab Results 09/09/19 09/09/19 09/09/19 Range/Units 19:25 19:39 19:39 WBC 12.6 H (4.5-11.0) X10^3/uL RBC 5.17 (4.0-5.2) X10^6/uL Hgb 14.6 (12.0-16.0) g/dL Hct 43.2 (36-46) % MCV 83.5 (80-100) fL MCH 28.3 (26-34) PG MCHC 33.9 (30-36) % RDW 13.6 (11.6-14.8) % Plt Count 336 (150-400) X10^3/uL Neut % (Auto) 66.1 (50-75) % Lymph % (Auto) 25.4 (25-40) % [place] % (Auto) 6.6 (3-14) % Eos % (Auto) 1.2 L (2-4) % Baso % (Auto) 0.7 (0-2) % Neut # (Auto) 8300 H (4433-0623) /uL Lymph # (Auto) 3200 (6364-9824) /uL [place] # (Auto) 800 (0-900) /uL Eos # (Auto) 100 (0-450) /uL Baso # (Auto) 100 (0-100) /uL Sodium 140 (137-145) mmol/L Potassium 3.8 (3.4-5.1) mmol/L Chloride 105 (98-107) mmol/L Carbon Dioxide 20 L (22-32) mmol/L BUN 9 (7-17) mg/dL Creatinine 0.50 L (0.52-1.04) mg/dL Estimated GFR > 60.0 (>60) mL/min BUN/Creatinine Ratio 18.0 (6-22) Glucose 208 H (70-100) mg/dL Calcium 10.2 (8.4-10.2) mg/dL Total Bilirubin 0.3 (0.2-1.3) mg/dL AST 22 (14-36) IU/L ALT 22 (<35) IU/L Alkaline Phosphatase 111 (38-126) U/L Total Protein 8.9 H (6.3-8.2) g/dL Albumin 4.9 (3.5-5.0) g/dL Globulin 4.0 (1.7-4.1) g/dL Albumin/Globulin Ratio 1.2 (1.0-2.8) TSH (0.47-4.68) uIU/mL Salicylates < 1.0 (<20) mg/dL U Opiates 300ng/mL cut Negative (Negative) Ur Oxycodone Screen Negative (Negative) Urine Methadone Screen Negative (Negative) Acetaminophen < 10 L (10-30) ug/mL Ur Barbiturates Screen Negative (Negative) U Tricyclic Antidepress Negative (Negative) Ur Phencyclidine Scrn Negative (Negative) Ur Amphetamines Screen Negative (Negative) U Methamphetamines Scrn Negative (Negative) Ur MDMA Scrn (Ecstasy) Negative (Negative) U Benzodiazepines Scrn Negative (Negative) Mylo (0.6-1.2) mmol/L Urine Cocaine Screen Negative (Negative) U Marijuana (THC) Screen Negative (Negative) Ethyl Alcohol < 10 ( - 10) mg/dL 09/09/19 Range/Units 19:39 WBC (4.5-11.0) X10^3/uL RBC (4.0-5.2) X10^6/uL Hgb (12.0-16.0) g/dL Hct (36-46) % MCV (80-100) fL MCH (26-34) PG MCHC (30-36) % RDW (11.6-14.8) % Plt Count (150-400) X10^3/uL Neut % (Auto) (50-75) % Lymph % (Auto) (25-40) % [place] % (Auto) (3-14) % Eos % (Auto) (2-4) % Baso % (Auto) (0-2) % Neut # (Auto) (7277-4424) /uL Lymph # (Auto) (7570-3538) /uL [place] # (Auto) (0-900) /uL Eos # (Auto) (0-450) /uL Baso # (Auto) (0-100) /uL Sodium (137-145) mmol/L Potassium (3.4-5.1) mmol/L Chloride (98-107) mmol/L Carbon Dioxide (22-32) mmol/L BUN (7-17) mg/dL Creatinine (0.52-1.04) mg/dL Estimated GFR (>60) mL/min BUN/Creatinine Ratio (6-22) Glucose (70-100) mg/dL Calcium (8.4-10.2) mg/dL Total Bilirubin (0.2-1.3) mg/dL AST (14-36) IU/L ALT (<35) IU/L Alkaline Phosphatase (38-126) U/L Total Protein (6.3-8.2) g/dL Albumin (3.5-5.0) g/dL Globulin (1.7-4.1) g/dL Albumin/Globulin Ratio (1.0-2.8) TSH 1.62 (0.47-4.68) uIU/mL Salicylates (<20) mg/dL U Opiates 300ng/mL cut (Negative) Ur Oxycodone Screen (Negative) Urine Methadone Screen (Negative) Acetaminophen (10-30) ug/mL Ur Barbiturates Screen (Negative) U Tricyclic Antidepress (Negative) Ur Phencyclidine Scrn (Negative) Ur Amphetamines Screen (Negative) U Methamphetamines Scrn (Negative) Ur MDMA Scrn (Ecstasy) (Negative) U Benzodiazepines Scrn (Negative) Mylo < 0.2 L (0.6-1.2) mmol/L Urine Cocaine Screen (Negative) U Marijuana (THC) Screen (Negative) Ethyl Alcohol ( - 10) mg/dL Point of Care Testing Test Results Negative Urine Dip Bedside Urine Glucose 1000 mg/dl Bedside Urine Bilirubin - Negative Bedside Urine Ketone - Negative Urine Specific Leo 1.015 Bedside Urine Occult Blood +/- Bedside Urine pH 6.0 Bedside Urine Protein +/- 15 Bedside Urine Urobilinogen +/- 1mg Bedside Urine Nitrite - Negative Bedside Urine Leukocytes ++ 125 Esterase MDM Narrative Medical decision making narrative: Patient signed out to me by Dr. Aragon. Social work is now working on case. I have signed case out to Dr. Miller. Discharge Plan Departure Prescriptions: No Action (DME) disposable gloves package See Dose Instructions .ROUTE .MEDSUPPLY Qty: 50 RF: 0 (DME) blood-glucose meter [True Metrix Air Glucose Meter] kit See Dose Instructions .ROUTE .MEDSUPPLY Qty: 1 RF: 0 diclofenac sodium 1.5 % kit 6 spray TOP Q8H PRN (Reason: pain) Qty: 1 RF: 0 (DME) True Metrix Glucose Test Strip Strip See Rx Instructions .ROUTE .MEDSUPPLY Qty: 100 RF: 0 (DME) Lancets Qty: 100 RF: 0 metformin 1,000 mg tablet 1,000 mg PO BIDCC Qty: 180 RF: 1 citalopram 20 mg tablet 30 mg PO DAILY RF: 0 anastrozole 1 mg tablet 1 mg PO DAILY RF: 0 albuterol sulfate [Ventolin HFA] 90 mcg/actuation HFA aerosol inhaler 2 puff INHALATION Q4HP PRN (Reason: shortness of breath or wheezing) Qty: 1 RF: 0 (DME) Aerochamber MV Spacer See Rx Instructions .ROUTE .MEDSUPPLY Qty: 1 RF: 0 diphenoxylate-atropine [Lomotil] 2.5-0.025 mg tablet 1 tab PO BID PRN (Reason: diarrhea) Qty: 20 RF: 0 oxycodone 5 mg capsule 5 mg PO Q4-6H PRN (Reason: pain) Qty: 20 RF: 0 bupropion HCl [Wellbutrin XL] 150 mg tablet extended release 24 hr 300 mg PO QAM RF: 0 empagliflozin 10 mg tablet 10 mg PO DAILY Qty: 30 RF: 1 ibuprofen 800 mg tablet 800 mg PO Q8H RF: 0 diphenhydramine-acetaminophen [Tylenol PM Extra Strength] 25-500 mg Tablet 1 tab PO BEDTIME RF: 0
[2019-09-09 19:19] VITALS: BP 136/95; PULSE 122; RESP 20; TEMP 36.7; O2SAT 97
[2019-09-09 19:44] LABS: Ur Creatinine Normal (Normal)
[2019-09-09 19:45] LABS: UR Morphine/Opiate cutoff 300 Negative (Negative); Ur Specific Gravity Normal (Normal); Urine Amphetamines Negative (Negative); Urine Barbiturates Negative (Negative); Urine Benzodiazepines Negative (Negative); Urine Cocaine Negative (Negative); Urine MDMA Negative (Negative); Urine Methadone Negative (Negative); Urine Methamphetamines Negative (Negative); Urine Oxycodone Negative (Negative); Urine Phencyclidine Negative (Negative); Urine Tetrahydrocannabinol Negative (Negative); Urine Tricyclic Antidepressant Negative (Negative); Urine pH Normal (Normal)
[2019-09-09 19:45] LABS: Add Manual Diff / Slide Review NO; Basophils Absolute Auto 100 /uL (0-100); Basophils Percent Auto 0.7 % (0-2); Eosinophils Absolute Auto 100 /uL (0-450); Eosinophils Percent Auto 1.2 % (2-4); Hematocrit 43.2 % (36-46); Hemoglobin 14.6 g/dL (12.0-16.0); Lymphocytes Absolute Auto 3200 /uL (1100-4500); Lymphocytes Percent Auto 25.4 % (25-40); Mean Corpuscular HGB Conc 33.9 % (30-36); Mean Corpuscular Hemoglobin 28.3 PG (26-34); Mean Corpuscular Volume 83.5 fL (80-100); Monocytes Absolute Auto 800 /uL (0-900); Monocytes Percent Auto 6.6 % (3-14); Neutrophils Absolute Auto 8300 /uL (1500-7000); Neutrophils Percent Auto 66.1 % (50-75); Platelet Count 336 X10^3/uL (150-400); Red Blood Cell Count 5.17 X10^6/uL (4.0-5.2); Red Cell Distribution Width 13.6 % (11.6-14.8); White Blood Cell Count 12.6 X10^3/uL (4.5-11.0)
--- NOTE | 2019-09-09 19:46 | PC.NURSE ---
STICKER ON/DATA ENTRY SPECIALIST Note: Pt. is agitated and pacing back and forth. Pt. started to bang her head against the wall. RN and I talked her down and had her stop. Patient is very tearful, stated make them stop talking to me...I don't want to . Help me please. Pt. continues to pace around the room. notified.
--- NOTE | 2019-09-09 19:55 | PC.NURSE ---
patient pacing in room, patient banging head on wall i need the voices to stop I don't actually want to . You need to help me patient tearful, pacing in room, directed back to the bed. Provider Aware of change in patients behavior. Verbal order for 20mg ODT Olanzapine.
[2019-09-09 19:56] LABS: Acetaminophen < 10 ug/mL (10-30); Alanine Aminotransferase 22 IU/L (<35); Albumin 4.9 g/dL (3.5-5.0); Albumin Globulin Ratio 1.2 (1.0-2.8); Alkaline Phosphatase 111 U/L (38-126); Aspartate Aminotransferase 22 IU/L (14-36); Bilirubin Total 0.3 mg/dL (0.2-1.3); Blood Urea Nitrogen 9 mg/dL (7-17); Calcium 10.2 mg/dL (8.4-10.2); Carbon Dioxide 20 mmol/L (22-32); Chloride 105 mmol/L (98-107); Estimated Glomerular Filt Rate > 60.0 mL/min (>60); Ethanol (ETOH) < 10 mg/dL; Glucose 208 mg/dL (70-100); HEMOLYSIS < 15 (0-50); Potassium 3.8 mmol/L (3.4-5.1); Salicylate < 1.0 mg/dL (<20); Sodium 140 mmol/L (137-145); Total Protein 8.9 g/dL (6.3-8.2)
[2019-09-09] MEDS: OLANZapine ODT 10 MG TAB 20 MG PO (19:56)
[2019-09-09 20:27] LABS: Lithium < 0.2 mmol/L (0.6-1.2)
[2019-09-09] MEDS: ACETAMINOPHEN 325 MG TABLET 650 MG PO (20:43)
[2019-09-09] MEDS: DIPHENOXYLATE/ATROP 2.5/0.025 TABLET 1 EACH PO (20:47)
[2019-09-09 20:51] LABS: Thyroid Stimulating Hormone 1.62 uIU/mL (0.47-4.68)
--- NOTE | 2019-09-09 21:25 | PC.NURSE ---
Members from patients judaism at bedside. Patient calm and talkative at this time.
--- NOTE | 2019-09-09 21:26 | PC.NURSE ---
Patient reports she has been hearing voices for a couple of months and visual hallucinations for about a year. I just kept thinking if I take the meds and keep pushing on doing life it would all go away my therapist said sometimes the medication wellbutrin can cause people to hear things.
[2019-09-09] MEDS: METFORMIN HCL 500 MG TABLET 1000 MG PO (21:36)
--- NOTE | 2019-09-09 21:39 | PC.NURSE ---
Lights dimmed. Plugged patients phone in to charge outside of room at patients request. Patient tired and ready to try and sleep. Additional blanket offered.
[2019-09-09 23:29] VITALS: BP 133/86; PULSE 101; RESP 22; TEMP 36.7; O2SAT 98
[2019-09-10 05:38] VITALS: BP 127/86; PULSE 93; RESP 20; TEMP 37; O2SAT 97
--- NOTE | 2019-09-10 05:45 | PC.NURSE ---
gave patient her phone back we were charging it while she slept
[2019-09-10] MEDS: IBUPROFEN 400 MG TABLET 800 MG PO (08:10)
[2019-09-10] MEDS: ACETAMINOPHEN 325 MG TABLET 650 MG PO ×2 (08:10→14:39)
[2019-09-10 08:15] VITALS: BP 137/83; PULSE 93; RESP 16; TEMP 36.7; O2SAT 96
[2019-09-10] MEDS: CITALOPRAM 10 MG TABLET 30 MG PO (08:17)
[2019-09-10] MEDS: buPROPion XL 150 MG TAB PO (08:17)
[2019-09-10] MEDS: METFORMIN HCL 500 MG TABLET 1000 MG PO ×2 (08:18→17:31)
--- NOTE | 2019-09-10 08:18 | PC.NURSE ---
Pt calm sitting in bed @40 degrees drinking water looking at phone. Glasses were given back to see more clearly.
[2019-09-10 14:06] VITALS: BP 127/77; PULSE 84; RESP 16; TEMP 36.8; O2SAT 96
[2019-09-10] MEDS: OXYCODONE IR 5 MG TABLET PO (14:39)
--- NOTE | 2019-09-10 16:53 | PC.NURSE ---
[id number] report called to Albina TERESA at [facility]
[2019-09-10 17:12] VITALS: BP 131/87; PULSE 88; RESP 18; TEMP 36.6; O2SAT 96
--- NOTE | 2019-09-10 17:25 | PC.NURSE ---
Patient visiting with friends who brought her some dinner.
== END 2019-09-10 17:35 ==
PROVIDERS: Emergency Medicine; Emergency Provider Emergency Medicine; PCP Family Medicine
DX: R45.851 Suicidal ideations (principal)
CPT/HCPCS: 36415; 80053; 80178; 80305; 80320; 80329; 81003; 81025; 84443; 85025; 93005; 93010; 99285; G0480

== ENCOUNTER → 2019-10-11 15:39 | Outpatient (CLI) | payer OTHER, MEDICAID, SELFPAY ==
[2019-10-11 17:55] LABS: BUN Creatinine Ratio 16.7 (6-22); Blood Urea Nitrogen 10 mg/dL (7-17); Calcium 10.1 mg/dL (8.4-10.2); Carbon Dioxide 23 mmol/L (22-32); Chloride 106 mmol/L (98-107); Estimated Glomerular Filt Rate > 60.0 mL/min (>60); Glucose 132 mg/dL (70-100); HEMOLYSIS < 15 (0-50); Potassium 4.1 mmol/L (3.4-5.1); Sodium 141 mmol/L (137-145)
[2019-10-11 17:58] LABS: Hemoglobin A1C% w Est Avg Glu 7.5 % (4.0-6.0)
== END ==
PROVIDERS: PCP Family Medicine; Referring Provider Family Medicine; Visit Provider Family Medicine
DX: E11.9 Type 2 diabetes mellitus without complications (principal); E66.9 Obesity, unspecified; R19.7 Diarrhea, unspecified
CPT/HCPCS: 36415; 80048; 83036; 87045; 87899

== ENCOUNTER 2019-10-28 16:22 | Emergency (ER) | payer OTHER, MEDICAID, SELFPAY ==
[2019-10-28 16:42] VITALS: BP 161/82; PULSE 105; RESP 25; TEMP 36.8; O2SAT 98; BMI 50.8
--- NOTE | 2019-10-28 16:47 | DI.RAD.S_ITS ---
PROCEDURE: XR CHEST 1V INDICATIONS: chest pain TECHNIQUE: One view of the chest was acquired. COMPARISON: [facility], CR, XR CHEST 1V, 02/08/2018, 21:39. FINDINGS: Surgical changes and devices: None. Lungs and pleura: Lungs are clear. No pleural effusions or pneumothorax. Mediastinum: Mediastinal contours appear normal. Heart size is normal. Bones and chest wall: No suspicious bony lesions. Overlying soft tissues appear unremarkable. IMPRESSION: No acute pulmonary process. Dictated by: Edita Duffy M.D. on 10/28/2019 at 17:46 Approved by: Edita Duffy M.D. on 10/28/2019 at 17:47
[2019-10-28 17:09] LABS: Prothrombin Time 11.3 SECONDS (10.1-12.7)
[2019-10-28 17:12] LABS: PTT Partial Thromboplastin Tim 36 SECONDS (26.4-36.2)
[2019-10-28 17:13] LABS: Alanine Aminotransferase 21 IU/L (<35); Albumin 4.8 g/dL (3.5-5.0); Albumin Globulin Ratio 1.2 (1.0-2.8); Alkaline Phosphatase 117 U/L (38-126); Aspartate Aminotransferase 22 IU/L (14-36); BUN Creatinine Ratio 14.5 (6-22); Bilirubin Total 0.3 mg/dL (0.2-1.3); Blood Urea Nitrogen 9 mg/dL (7-17); Calcium 10.3 mg/dL (8.4-10.2); Carbon Dioxide 22 mmol/L (22-32); Chloride 102 mmol/L (98-107); Creatine Kinase 41 U/L (30-135); Estimated Glomerular Filt Rate > 60.0 mL/min (>60); Globulin 3.9 g/dL (1.7-4.1); Glucose 205 mg/dL (70-100); HEMOLYSIS < 15 (0-50); Lipase 70 U/L (23-300); Potassium 3.7 mmol/L (3.4-5.1); Sodium 136 mmol/L (137-145); Total Protein 8.7 g/dL (6.3-8.2)
[2019-10-28 17:16] LABS: Add Manual Diff / Slide Review NO; Basophils Absolute Auto 100 /uL (0-100); Eosinophils Absolute Auto 100 /uL (0-450); Hematocrit 42.8 % (36-46); Hemoglobin 14.3 g/dL (12.0-16.0); Lymphocytes Absolute Auto 4100 /uL (1100-4500); Lymphocytes Percent Auto 32.7 % (25-40); Mean Corpuscular HGB Conc 33.4 % (30-36); Mean Corpuscular Hemoglobin 27.5 PG (26-34); Mean Corpuscular Volume 82.3 fL (80-100); Monocytes Absolute Auto 1000 /uL (0-900); Monocytes Percent Auto 7.8 % (3-14); Neutrophils Absolute Auto 7300 /uL (1500-7000); Neutrophils Percent Auto 57.5 % (50-75); Platelet Count 364 X10^3/uL (150-400); Red Cell Distribution Width 13.6 % (11.6-14.8); White Blood Cell Count 12.6 X10^3/uL (4.5-11.0)
--- NOTE | 2019-10-28 17:19 | DI.CT.S_ITS ---
PROCEDURE: CT ANGIO CHEST PE PROTOCOL INDICATIONS: dyspnea, chest pain, hx breast ca TECHNIQUE: After the administration of intravenous contrast, 2 mm thick sections acquired from the pulmonary apices to the posterior costophrenic angles. 3-dimensional maximum intensity projection (MIP) coronal and sagittal reformats were then acquired through the thorax. For radiation dose reduction, the following was used: automated exposure control, adjustment of mA and/or kV according to patient size. COMPARISON: [facility], CR, XR CHEST 1V, 10/28/2019, 16:57. [facility], CT, CT ANGIO CHEST PE PROTOCOL, 02/08/2018, 22:52. FINDINGS: Image quality: Limited by large body habitus. Pulmonary arteries: Pulmonary arteries are normal in size, and demonstrate no intraluminal filling defects to suggest central pulmonary embolism. Quality of visualization is somewhat limited by large patient body habitus and resultant later phase of contrast enhancement during pulmonary artery visualization. Lungs and pleura: Lungs are clear except for a minimal degree of alveolar prominence at the anterior left upper lobe, a finding not previously present on CT scanning from 02/08/18. This therefore is suspicious for a mild or early pneumonia in that area (see images centered on series 10 image 24, left upper lobe). No pleural effusions or pneumothorax. Central and peripheral airways are patent. Mediastinum: Heart size is normal, without pericardial effusion. No mediastinal or hilar adenopathy. Thoracic aorta is normal in caliber and enhancement. Esophagus is normal in caliber, without hiatal hernia. Bones and chest wall: No suspicious bony lesions. Ribs and thoracic spine appear intact throughout. Thyroid gland is not well-seen. No axillary or supraclavicular adenopathy. Abdomen: Visualized upper abdominal solid organs appear normal in the early arterial phase of enhancement. IMPRESSION: 1. No pulmonary embolus found. Quality of visualization is somewhat limited by large body habitus and subsequent mild alteration in phase of contrast enhancement. The study is diagnostic, however, in my opinion. 2. Mild or early pneumonia left upper lobe anteriorly. As discussed above this area was normal in appearance on prior similar CT scanning from January of 2018. 3. No adenopathy or osseous metastatic disease found related to reported prior breast carcinoma. Surgical clips over the right chest became likelihood of right breast carcinoma. No recurrent mass lesion through the breast tissue appears present. Dictated by: Gaurang Haas M.D. on 10/28/2019 at 18:03 Approved by: Gaurang Haas M.D. on 10/28/2019 at 18:09
[2019-10-28] MEDS: SODIUM CHLORIDE 0.9% 1,000 ML 150 ML IV (17:23)
[2019-10-28 17:25] LABS: Troponin I < 0.012 ng/mL (0.01-0.034)
[2019-10-28] MEDS: KETOROLAC 60 MG/2 ML VIAL 30 MG IV (17:28)
[2019-10-28 17:30] VITALS: BP 191/102; PULSE 88; RESP 22; O2SAT 97
[2019-10-28] MEDS: MORPHINE 4 MG/ML INJ IV (18:47)
[2019-10-28] MEDS: ONDANSETRON 4 MG/2 ML INJ IV (18:48)
[2019-10-28 18:53] VITALS: BP 135/65; PULSE 92; RESP 21; O2SAT 97
[2019-10-28] MEDS: DOXYCYCLINE HYCLATE 100 MG TABLET PO (19:07)
--- NOTE | 2019-10-28 21:37 | ED_ITS ---
HPI - Chest Pain <JONO Gutierrez - Last Filed: 10/28/19 22:23> General Chief Complaint: Chest Pain Stated Complaint: SOB CHEST PAIN LEFT SIDE ARM PAIN Time Seen by Provider: 10/28/19 16:52 Source: patient Mode of arrival: Wheelchair Limitations: no limitations History of Present Illness HPI narrative: This is a 39-year-old female, former smoker, who presents to ED with chief complain of left-sided sharp chest discomfort radiating to left shoulder since last night. Patient reports associated symptoms as lightheadedness, cough, and shortness of breath. Patient reports pain increases with taking deep breaths and improves with the breath-holding. Patient denies recent surgery, prolonged bed rest, calf pain. Patient has a history of stage III breast cancer with bilateral mastectomy with chemo and radiation therapy after she was diagnosed in July 2018. Patient also states she was evaluated at [facility] Emergency room with nausea, vomiting, diarrhea last week with right upper quadrant pain. She is currently waiting for HIDA scan. Patient had a full workup done for right upper quadrant with imaging tests and was negative for cholecystitis or acute abdomen fall ultrasound and CT tests, however it shows hepatics steatosis and hepatomegaly. Related Data Home Medications Medication Instructions Recorded Confirmed diphenhydramine-acetaminophen 1 tab PO BEDTIME PRN 08/22/18 10/28/19 [Tylenol PM Extra Strength] anastrozole 1 mg tablet 1 mg PO DAILY 06/19/19 10/28/19 bupropion HCl 300 mg PO QAM 10/28/19 10/28/19 citalopram 40 mg PO DAILY 10/28/19 10/28/19 empagliflozin [Jardiance] 10 mg PO DAILY 10/28/19 10/28/19 quetiapine 50 mg PO DAILY 10/28/19 10/28/19 Previous Rx's Medication Instructions Recorded disposable gloves #50 each 12/05/18 blood-glucose meter #1 each 02/26/19 Lancets #100 each 06/12/19 blood sugar diagnostic #100 each 06/12/19 albuterol sulfate 90 mcg/actuation 2 puff INHALATION Q4HP PRN #1 each 06/19/19 aerosol inhaler inhalational spacing device #1 each 06/19/19 metformin 1,000 mg tablet 1,000 mg PO BIDCC #180 tab 08/15/19 cyclobenzaprine 10 mg PO BEDTIME PRN #7 tab 10/28/19 doxycycline hyclate 100 mg PO BID 7 Days #14 cap 10/28/19 Allergies Allergy/AdvReac Type Severity Reaction Status Date / Time sulfamethoxazole Allergy Intermediate Hives Verified 10/11/19 15:02 [From Bactrim] trimethoprim [From Bactrim] Allergy Intermediate Hives Verified 10/11/19 15:02 lidocaine Allergy Verified 10/11/19 15:02 silver AdvReac Intermediate Hives, Verified 10/11/19 15:02 difficulty breathing Review of Systems <JONO Gutierrez - Last Filed: 10/28/19 22:23> Review of Systems Narrative: General: Denies fever, chills, fatigue, malaise, sweats. HEENT: Denies sinus pain, ear pain, sore throat, difficulty swallowing, (+) lightheadedness. Respiratory: See HPI Cardiovascular: See HPI Gastrointestinal: Denies nausea, vomiting, abdominal pain, diarrhea, constipation, melena. : Denies dysuria, frequency, incontinence, hematuria, urinary retention. Musculoskeletal: Denies weakness, joint pain or bony pain. Skin: Denies rash, skin lesions, or other. Neurologic: Denies weakness, headache, numbness, change in speech, confusion, seizures, incoordination. Psychiatric: No concerning psychosocial issues. 12-point review of systems is negative except for those stated above. Patient History <JONO Gutierrez - Last Filed: 10/28/19 22:23> Medical History Abnormal chest xray (Chronic ~2001) Abnormal Pap smear of cervix (Resolved) Acne (Chronic) Anemia (Chronic ~1991) Anxiety (Chronic) Asthma (Chronic) Chlamydia (Chronic ~1998) Depression (Chronic) Diabetes mellitus (Chronic ~2015) Genital warts (Chronic ~2015) Heavy menstrual period (Chronic) Invasive ductal carcinoma of left breast, stage 2 (Resolved) Irregular menses (Chronic) Mumps (Resolved ~1992) Ovarian cyst (Resolved) Painful menstrual periods (Chronic) PTSD (post-traumatic stress disorder) (Chronic) Substance abuse (Chronic) Surgical History Cyst (Resolved ~2015) History of bilateral oophorectomies (Resolved ~2018) S/P mastectomy (Resolved) Status post bilateral mastectomy (Resolved ~12/2018) Status post delivery (~1999) Status post delivery (~2008) Status post colonoscopy (11/25/16) Family History Father Diabetes mellitus Heart disease Mental health problem Alcoholic Grandfather Cancer Diabetes mellitus Heart disease High cholesterol Grandmother Cancer Heart disease Essential hypertension High cholesterol Cerebrovascular accident (CVA), unspecified mechanism Mother Mental health problem Alcoholic Social History Smoking Status: Former smoker alcohol intake: never substance use type: does not use and former substance user Smoking Status: Former smoker alcohol intake frequency: 0-2 drinks per day Substance Use Type: does not use Exam <JONO Gutierrez - Last Filed: 10/28/19 22:23> Narrative Exam Narrative: GEN: Alert, oriented x 3, obese and well appearing, and in no acute distress. Head: Normal cephalic, atraumatic. No scalp or temporal tenderness, palpable mass or rash. EYES: Pupils are equal, round, and reactive to light and accommodation. Extraocular muscles are intact bilaterally. There is no subconjunctival hemorrhage, exudate and sclera non-icteric. ENT: Bilateral auditory canals and tympanic membranes clear. Hearing grossly intact. Nose without bleeding, purulent discharge or deviation. Facial sinuses nontender to palpate. Mucous membrane moist, no mucosal lesion. Throat without erythema, tonsillar hypertrophy or exudate. Uvula in midline, airway patent. Neck: Trachea in midline. No JVD, TTP cervical lymphnodes. No masses or thyroid megaly. Supple, non-tender and no meningeal signs. CARDIAC: Normal regular rate and rhythm without murmurs, gallops, or rubs. No chest wall tenderness. No peripheral edema, cyanosis or pallor. Capillary refill is less than 2 seconds. RESPIRATORY: Lungs are clear to auscultate bilaterally. No cough to witness, wheezes, rales, or rhonchi. No stridor, respiratory distress, increase work of breathing, or accessary muscle used. ABD: Abdomen soft, nontender and obese. No guarding or rebound tenderness to palpate. Bowel sounds are normal in all 4 quadrants. There is no palpable masses or organomegaly. EXT: Full painless ROM of all extremities with no loss of sensation, strength, effusion or edema. SKIN: Warm, dry, normal color for patient. No erythema, lesions or rash over visible areas. BACK: Nontender without deformity or crepitance. No flank tenderness. NEUROLOGICAL: Alert and oriented to place, time and person. Sensation and motor function intact bilaterally. No facial droops, dysphasia. PSYCHIATRIC: Good judgement and reason, without hallucinations, abnormal affect or abnormal behaviors during the examination. Patient is not suicidal. Initial Vital Signs Initial Vital Signs: Vital Signs Temperature 98.2 F 10/28/19 16:42 Pulse Rate 105 H 10/28/19 16:42 Respiratory Rate 25 H 10/28/19 16:42 Blood Pressure 161/82 H 10/28/19 16:42 Pulse Oximetry 98 10/28/19 16:42 <Bette Stanley MD - Last Filed: 10/29/19 08:13> Initial Vital Signs Initial Vital Signs: Vital Signs Temperature 98.2 F 10/28/19 16:42 Pulse Rate 105 H 10/28/19 16:42 Respiratory Rate 25 H 10/28/19 16:42 Blood Pressure 161/82 H 10/28/19 16:42 Pulse Oximetry 98 10/28/19 16:42 Scores <JONO Gutierrez - Last Filed: 10/28/19 22:23> Wells' Criteria for PE Clinical signs and symptoms of DVT: No PE is #1 Dx or equally likely: Yes Heart rate > 100: Yes Immobilization at least 3 days or surg in previous 4 weeks: No History of PE or DVT: No Hemoptysis: No Malignancy w/Treatment within 6 months or palliative: No Wells' PE Score total: 4.5 Course <JONO Gutierrez - Last Filed: 10/28/19 22:23> Orders Ordered: Discontinued Medications Doxycycline Hyclate (Vibramycin) 100 mg PO NOW ONE Stop: 10/28/19 18:59 Last Admin: 10/28/19 19:07 Dose: 100 mg Documented by: STEPHEN Sodium Chloride (Normal Saline 0.9%) 1,000 mls @ 150 mls/hr IV CONT LAVELL Last Infusion: 10/28/19 19:12 Dose: 0 mls/hr Documented by: Admin: 10/28/19 17:23 Dose: 150 mls/hr Documented by: STEPHEN Ketorolac Tromethamine (Toradol) 30 mg IV NOW ONE Stop: 10/28/19 17:26 Last Admin: 10/28/19 17:28 Dose: 30 mg Documented by: STEPHEN Morphine Sulfate (Morphine) 4 mg IV NOW ONE Stop: 10/28/19 18:28 Last Admin: 10/28/19 18:47 Dose: 4 mg Documented by: WILI Ondansetron HCl (Zofran) 4 mg IV NOW ONE Stop: 10/28/19 18:28 Last Admin: 10/28/19 18:48 Dose: 4 mg Documented by: WILI Vital Signs Vital signs: Vital Signs - 8 hr 10/28/19 16:42 10/28/19 17:30 10/28/19 18:53 Temperature 98.2 F Pulse Rate 105 H 88 92 H Respiratory Rate 25 H 22 21 Blood Pressure 161/82 H Blood Pressure [Left Arm] 191/102 H 135/65 Pulse Oximetry 98 97 97 <Bette Stanley MD - Last Filed: 10/29/19 08:13> Orders Ordered: Discontinued Medications Doxycycline Hyclate (Vibramycin) 100 mg PO NOW ONE Stop: 10/28/19 18:59 Last Admin: 10/28/19 19:07 Dose: 100 mg Documented by: STEPHEN Sodium Chloride (Normal Saline 0.9%) 1,000 mls @ 150 mls/hr IV CONT LAVELL Last Infusion: 10/28/19 19:12 Dose: 0 mls/hr Documented by: Admin: 10/28/19 17:23 Dose: 150 mls/hr Documented by: STEPHEN Ketorolac Tromethamine (Toradol) 30 mg IV NOW ONE Stop: 10/28/19 17:26 Last Admin: 10/28/19 17:28 Dose: 30 mg Documented by: STEPHEN Morphine Sulfate (Morphine) 4 mg IV NOW ONE Stop: 10/28/19 18:28 Last Admin: 10/28/19 18:47 Dose: 4 mg Documented by: WILI Ondansetron HCl (Zofran) 4 mg IV NOW ONE Stop: 10/28/19 18:28 Last Admin: 10/28/19 18:48 Dose: 4 mg Documented by: WILI Vital Signs Vital signs: Vital Signs - 8 hr 10/28/19 16:42 10/28/19 17:30 10/28/19 18:53 Temperature 98.2 F Pulse Rate 105 H 88 92 H Respiratory Rate 25 H 22 21 Blood Pressure 161/82 H Blood Pressure [Left Arm] 191/102 H 135/65 Pulse Oximetry 98 97 97 MDM - Chest Pain <Solomon BeckJONO Menchaca - Last Filed: 10/28/19 22:23> Differential Diagnosis Differential diagnosis: Likely atypical chest pain, costochondritis and other (Pulmonary embolism) Medical Records Data Attestation: I reviewed the patient's medical records. Lab Data Attestation: I reviewed the patient's lab results. Result diagrams: 10/28/19 16:41 10/28/19 16:41 Labs: Lab Results 10/28/19 10/28/19 10/28/19 Range/Units 16:41 16:41 16:41 WBC 12.6 H (4.5-11.0) X10^3/uL RBC 5.20 (4.0-5.2) X10^6/uL Hgb 14.3 (12.0-16.0) g/dL Hct 42.8 (36-46) % MCV 82.3 (80-100) fL MCH 27.5 (26-34) PG MCHC 33.4 (30-36) % RDW 13.6 (11.6-14.8) % Plt Count 364 (150-400) X10^3/uL Neut % (Auto) 57.5 (50-75) % Lymph % (Auto) 32.7 (25-40) % [place] % (Auto) 7.8 (3-14) % Eos % (Auto) 1.0 L (2-4) % Baso % (Auto) 1.0 (0-2) % Neut # (Auto) 7300 H (4312-3042) /uL Lymph # (Auto) 4100 (2935-8020) /uL [place] # (Auto) 1000 H (0-900) /uL Eos # (Auto) 100 (0-450) /uL Baso # (Auto) 100 (0-100) /uL PT 11.3 (10.1-12.7) SECONDS INR 1.0 (0.9-1.3) APTT 36 (26.4-36.2) SECONDS Sodium 136 L (137-145) mmol/L Potassium 3.7 (3.4-5.1) mmol/L Chloride 102 (98-107) mmol/L Carbon Dioxide 22 (22-32) mmol/L BUN 9 (7-17) mg/dL Creatinine 0.62 (0.52-1.04) mg/dL Estimated GFR > 60.0 (>60) mL/min BUN/Creatinine Ratio 14.5 (6-22) Glucose 205 H (70-100) mg/dL Calcium 10.3 H (8.4-10.2) mg/dL Total Bilirubin 0.3 (0.2-1.3) mg/dL AST 22 (14-36) IU/L ALT 21 (<35) IU/L Alkaline Phosphatase 117 (38-126) U/L Total Creatine Kinase 41 (30-135) U/L CK-MB (CK-2) TNP CK-MB (CK-2) Rel Index TNP Troponin I < 0.012 (0.01-0.034) ng/mL Total Protein 8.7 H (6.3-8.2) g/dL Albumin 4.8 (3.5-5.0) g/dL Globulin 3.9 (1.7-4.1) g/dL Albumin/Globulin Ratio 1.2 (1.0-2.8) Lipase 70 (23-300) U/L Imaging Data CT scan - chest: Radiologist's Impression: [address] [address] [address] Scan Report Signed Patient: Dario Kim KMR#: [id number] : 1980Acct:[id number] Age/Sex: 39 / FDate of Service: 10/28/19 Loc: ED Accession Number: [id number] Procedure: CT angio chest PE protocol Ordering Provider: Solomon Naranjo PROCEDURE: CT ANGIO CHEST PE PROTOCOL INDICATIONS: dyspnea, chest pain, hx breast ca TECHNIQUE: After the administration of intravenous contrast, 2 mm thick sections acquired from the pulmonary apices to the posterior costophrenic angles. 3-dimensional maximum in tensity projection (MIP) coronal and sagittal reformats were then acquired through the thorax. For radiation dose reduction, the following was used: automated exposure control, adjustment of mA and/or kV according to patient size. COMPARISON: [facility], CR, XR CHEST 1V, 10/28/2019, 16:57. [facility], CT, CT ANGIO CHEST PE PROTOCOL, 02/08/2018, 22:52. FINDINGS: Image quality: Limited by large body habitus. Pulmonary arteries: Pulmonary arteries are normal in size, and demonstrate no intraluminal filling defects to suggest central pulmonary embolism. Quality of visualization is somewhat limited by large patient body habitus and resultant later phase of contrast enhancement during pulmonary artery visualization. Lungs and pleura: Lungs are clear except for a minimal degree of alveolar prominence at the anterior left upper lobe, a finding not previously present on CT scanning from 02/08/18. This therefore is suspicious for a mild or early pneumonia in that area (see images centered on series 10 image 24, left upper lobe). No pleural effusions or pneumothorax. Central and peripheral airways are patent. Mediastinum: Heart size is normal, without pericardial effusion. No mediastinal or hilar adenopathy. Thoracic aorta is normal in caliber and enhancement. Esophagus is normal in caliber, without hiatal hernia. Bones and chest wall: No suspicious bony lesions. Ribs and thoracic spine appear intact throughout. Thyroid gland is not well-seen. No axillary or supraclavicular adenopathy. Abdomen: Visualized upper abdominal solid organs appear normal in the early arterial phase of enhancement. IMPRESSION: 1. No pulmonary embolus found. Quality of visualization is somewhat limited by large body habitus and subsequent mild alteration in phase of contrast enhancement. The study is diagnostic, however, in my opinion. 2. Mild or early pneumonia left upper lobe anteriorly. As discussed above this area was normal in appearance on prior similar CT scanning from January of 2018. 3. No adenopathy or osseous metastatic disease found related to reported prior breast carcinoma. Surgical clips over the right chest became likelihood of right breast carcinoma. No recurrent mass lesion through the breast tissue appears present. Dictated by: Gaurang Haas M.D. on 10/28/2019 at 18:03 Approved by: Gaurang Haas M.D. on 10/28/2019 at 18:09 Chest x-ray: Radiologist's Impression: [address] [address] XRay Report Signed Patient: Dario Kim KMR#: [id number] : 1980Acct:[id number] Age/Sex: 39 / FDate of Service: 10/28/19 Loc: ED Accession Number: [id number] Procedure: XR chest 1V Ordering Provider: Bette Stanley MD PROCEDURE: XR CHEST 1V INDICATIONS: chest pain TECHNIQUE: One view of the chest was acquired. COMPARISON: [facility], CR, XR CHEST 1V, 02/08/2018, 21:39. FINDINGS: Surgical changes and devices: None. Lungs and pleura: Lungs are clear. No pleural effusions or pneumothorax. Mediastinum: Mediastinal contours appear normal. Heart size is normal. Bones and chest wall: No suspicious bony lesions. Overlying soft tissues appea r unremarkable. IMPRESSION: No acute pulmonary process. Dictated by: Edita Duffy M.D. on 10/28/2019 at 17:46 Approved by: Edita Duffy M.D. on 10/28/2019 at 17:47 ECG Data Attestation: I personally reviewed and interpreted this ECG as follows: Prior ECG tracings: available for review Interpretation: Sinus rhythm rate at 99. VA int 154, QRS dur 92, QT/QTC 360/462. Normal [place]. No ST elevation or depression. Sinus tachycardia rate in 100s. MDM Narrative Medical decision making narrative: A 39-year-old obese female who presents to ED with left side sharp chest pain radiating to left arm since last night with associated symptoms such as dizziness and short of breath. Patient's initial initially in tachycardia with heart rate in 100s. Well score for PE was 4.5 and PERC score was 1. Patient also has a history of stage III breast cancer with bilateral mastectomy and had chemo and radiation therapy during 2019. Patient was evaluated at [facility] room about a week ago with nausea, vomiting and diarrhea. She is currently waiting for HIDA scan for upper abdominal pain which is scheduled by Dr. Frost her primary care physician. EKG was sinus rhythm rate at 99. Troponin was negative. No elevated lipase or liver function test today. Mildly elevated leukocytosis of 12.6. Glucose was 205 otherwise unremarkable chemistry. Portable chest x-ray was negative for acute findings. CTA of chest obtained and found no pulmonary embolus. However, there is mild or early pneumonia on left upper lobe anteriorly and patient reports she has been coughing. There is no adenopathy or osseous metastatic disease found related to prior breast cancer. No recurring mass lesions through the breast tissue was seen. Patient was medicated with IV Toradol without much improvement. Patient was given morphine which patient found to be helpful. Findings were shared with the patient and patient states with this could be related to musculoskeletal discomfort since she has large pillow on top her chest when she is sleeping with awkward position since the mastectomy. Advised to take [id number] Tylenol and or Motrin as needed for discomfort. Patient discharged to home with few tabs of muscle relaxant for prn use and return precautions were discussed with the patient. Second cardiac enzymes were withheld since patient's chest pain started last night. Return precautions were discussed with the patient and advised to follow up with PCP and also HIDA scan. Patient verbalized understanding and agreement with treatment plan. <Bette Stanley MD - Last Filed: 10/29/19 08:13> Lab Data Labs: Lab Results 10/28/19 10/28/19 10/28/19 Range/Units 16:41 16:41 16:41 WBC 12.6 H (4.5-11.0) X10^3/uL RBC 5.20 (4.0-5.2) X10^6/uL Hgb 14.3 (12.0-16.0) g/dL Hct 42.8 (36-46) % MCV 82.3 (80-100) fL MCH 27.5 (26-34) PG MCHC 33.4 (30-36) % RDW 13.6 (11.6-14.8) % Plt Count 364 (150-400) X10^3/uL Neut % (Auto) 57.5 (50-75) % Lymph % (Auto) 32.7 (25-40) % [place] % (Auto) 7.8 (3-14) % Eos % (Auto) 1.0 L (2-4) % Baso % (Auto) 1.0 (0-2) % Neut # (Auto) 7300 H (5786-4656) /uL Lymph # (Auto) 4100 (1383-8856) /uL [place] # (Auto) 1000 H (0-900) /uL Eos # (Auto) 100 (0-450) /uL Baso # (Auto) 100 (0-100) /uL PT 11.3 (10.1-12.7) SECONDS INR 1.0 (0.9-1.3) APTT 36 (26.4-36.2) SECONDS Sodium 136 L (137-145) mmol/L Potassium 3.7 (3.4-5.1) mmol/L Chloride 102 (98-107) mmol/L Carbon Dioxide 22 (22-32) mmol/L BUN 9 (7-17) mg/dL Creatinine 0.62 (0.52-1.04) mg/dL Estimated GFR > 60.0 (>60) mL/min BUN/Creatinine Ratio 14.5 (6-22) Glucose 205 H (70-100) mg/dL Calcium 10.3 H (8.4-10.2) mg/dL Total Bilirubin 0.3 (0.2-1.3) mg/dL AST 22 (14-36) IU/L ALT 21 (<35) IU/L Alkaline Phosphatase 117 (38-126) U/L Total Creatine Kinase 41 (30-135) U/L CK-MB (CK-2) TNP CK-MB (CK-2) Rel Index TNP Troponin I < 0.012 (0.01-0.034) ng/mL Total Protein 8.7 H (6.3-8.2) g/dL Albumin 4.8 (3.5-5.0) g/dL Globulin 3.9 (1.7-4.1) g/dL Albumin/Globulin Ratio 1.2 (1.0-2.8) Lipase 70 (23-300) U/L Discharge Plan Departure Patient Disposition: Home Clinical Impression: Atypical chest pain Pneumonia Qualifiers: Pneumonia type: due to unspecified organism Laterality: left Lung location: upper lobe of lung Qualified Code(s): J18.9 - Pneumonia, unspecified organism Discharge Date/Time: 10/28/19 19:22 Activity Restrictions/Additional Instructions: You have been diagnosed with [atypical chest pain, possible early pneumonia and reports cough. This pain may due to muscular skeletal in etiology. You were medicated with Toradol, Zofran, and Morphine and IV fluid. CT chest does not indicate pulmonary embolism. Lungs are clear except for a minimal degree of alveolar prominence at anterior left upper lobe which indicates possible early pneumonia. You were treated with doxycycline before discharged to home for this.]. What to do: *Take your medications as directed. Flexeril which is muscle relaxant and Doxycyclen and have been transmitted to [facility] in [place]. Please take doxycycline twice a day for next 7 days. Flexeril as needed for muscle tightness or discomfort if Tylenol and ibuprofen does not relieve her pain completely. It can cause drowsiness so please take precautions such as not driving, drinking alcohol or operating heavy equipments. *Follow up with your primary care provider in 2-3 days, call for an appointment. Let them know you were seen in the ED and that we asked you to be seen in follow up. Please continue with additional imaging test for right upper quadrant pain as scheduled. *Return to ED if you have any new, worsening, or concerning symptoms, such as [different or worsening chest pain, breathing difficulty, unable to tolerate fluids, or any acute concerns.]. Prescriptions: New cyclobenzaprine 10 mg tablet 10 mg PO BEDTIME PRN (Reason: muscle spasm) Qty: 7 RF: 0 doxycycline hyclate 100 mg capsule 100 mg PO BID 7 Days Qty: 14 RF: 0 No Action (DME) disposable gloves package See Dose Instructions .ROUTE .MEDSUPPLY Qty: 50 RF: 0 (DME) blood-glucose meter [True Metrix Air Glucose Meter] kit See Dose Instructions .ROUTE .MEDSUPPLY Qty: 1 RF: 0 (DME) True Metrix Glucose Test Strip Strip See Rx Instructions .ROUTE .MEDSUPPLY Qty: 100 RF: 0 (DME) Lancets Qty: 100 RF: 0 metformin 1,000 mg tablet 1,000 mg PO BIDCC Qty: 180 RF: 1 anastrozole 1 mg tablet 1 mg PO DAILY RF: 0 albuterol sulfate [Ventolin HFA] 90 mcg/actuation HFA aerosol inhaler 2 puff INHALATION Q4HP PRN (Reason: shortness of breath or wheezing) Qty: 1 RF: 0 (DME) Aerochamber MV Spacer See Rx Instructions .ROUTE .MEDSUPPLY Qty: 1 RF: 0 diphenhydramine-acetaminophen [Tylenol PM Extra Strength] 25-500 mg Tablet 1 tab PO BEDTIME PRN (Reason: pain) RF: 0 quetiapine 25 mg tablet 50 mg PO DAILY RF: 0 citalopram 40 mg tablet 40 mg PO DAILY RF: 0 bupropion HCl 300 mg tablet extended release 24 hr 300 mg PO QAM RF: 0 Jardiance 10 mg tablet 10 mg PO DAILY RF: 0 Referrals: Bonnie Goff DO [Primary Care Provider] - <Bette Stanley MD - Last Filed: 10/29/19 08:13> Sign Out Provider Sign Out Attestation: I was immediately available in the department for consultation throughout this patient's visit. I agree with documentation as above. Bette Stanley MD
== END 2019-10-28 19:22 | disposition home or self-care (01) ==
PROVIDERS: Emergency Medicine; Emergency Provider Nurse Practitioner Family; PCP Family Medicine
DX: R07.89 Other chest pain (principal); J18.9 Pneumonia, unspecified organism
CPT/HCPCS: 36415; 71045; 71275; 80053; 82550; 83690; 84484; 85025; 85610; 85730; 93005; 93010; 96361; 96374; 96375; 99284; J1885; J2270; J2405

== ENCOUNTER → 2020-04-03 15:37 | Outpatient (CLI) | payer OTHER, MEDICAID, SELFPAY ==
[2020-04-03 16:53] LABS: Hemoglobin A1C% w Est Avg Glu 7.7 % (4.0-6.0)
[2020-04-03 17:11] LABS: Alanine Aminotransferase 19 IU/L (<35); Albumin 4.5 g/dL (3.5-5.0); Albumin Globulin Ratio 1.4 (1.0-2.8); Alkaline Phosphatase 105 U/L (38-126); Aspartate Aminotransferase 19 IU/L (14-36); BUN Creatinine Ratio 19.1 (6-22); Bilirubin Total 0.4 mg/dL (0.2-1.3); Blood Urea Nitrogen 9 mg/dL (7-17); Calcium 9.8 mg/dL (8.4-10.2); Carbon Dioxide 23 mmol/L (22-32); Chloride 108 mmol/L (98-107); Cholesterol 176 mg/dL (140-199); Estimated Glomerular Filt Rate > 60.0 mL/min (>60); Globulin 3.2 g/dL (1.7-4.1); Glucose 107 mg/dL (70-100); HDL Cholesterol 41 mg/dL (40-60); HEMOLYSIS < 15 (0-50); LDL Cholesterol Calculated 75 mg/dL (<100); Sodium 140 mmol/L (137-145); Total Protein 7.7 g/dL (6.3-8.2); Triglycerides 300 mg/dL (35-150)
== END ==
PROVIDERS: PCP Family Medicine; Referring Provider Family Medicine; Visit Provider Family Medicine
DX: E11.9 Type 2 diabetes mellitus without complications (principal); E66.9 Obesity, unspecified
CPT/HCPCS: 36415; 80053; 80061; 83036

== ENCOUNTER → 2020-10-28 16:44 | Outpatient (CLI) | payer OTHER, MEDICAID, SELFPAY ==
--- NOTE | 2020-10-28 16:45 | DI.RAD.S_ITS ---
PROCEDURE: XR SHOULDER RT MIN 2V INDICATIONS: right shoulder pain worse than left TECHNIQUE: 2 views of the shoulder were acquired. COMPARISON: None. FINDINGS: Bones: No fractures or dislocations. No suspicious bony lesions. Visualized ribs appear intact. Soft tissues: No suspicious soft tissue calcifications. IMPRESSION: No trauma found, no significant degenerative change identified. Surgical clips axillary area, versus lateral upper breast. This may indicate prior breast carcinoma. Depending on the clinical status follow-up by nuclear medicine bone scan may be warranted. Dictated by: Gaurang Haas M.D. on 10/28/2020 at 18:13 Approved by: Gaurang Haas M.D. on 10/28/2020 at 18:14
--- NOTE | 2020-10-28 16:45 | DI.RAD.S_ITS ---
PROCEDURE: XR CLAVICLE RT INDICATIONS: right clavicle pain TECHNIQUE: 2 views of the clavicle were acquired. COMPARISON: None. FINDINGS: Bones: No fractures or dislocations. No suspicious bony lesions. Soft tissues: No suspicious soft tissue calcifications. IMPRESSION: No trauma found, no definite source of pain. Dictated by: Gaurang Haas M.D. on 10/28/2020 at 18:12 Approved by: Gaurang Haas M.D. on 10/28/2020 at 18:12
== END ==
PROVIDERS: PCP Family Medicine; Referring Provider Nurse Practitioner Family; Visit Provider Nurse Practitioner Family
DX: M25.511 Pain in right shoulder (principal); M25.512 Pain in left shoulder; G89.29 Other chronic pain; M89.8X1 Other specified disorders of bone, shoulder
CPT/HCPCS: 73000; 73030

== ENCOUNTER → 2020-11-10 09:51 | Outpatient (CLI) | payer OTHER, MEDICAID, SELFPAY ==
--- NOTE | 2020-11-10 09:52 | DI.NM.S_ITS ---
PROCEDURE: NM BONE SCAN WHOLE BODY RADIOPHARMACEUTICAL: 20.9 mCi Tc-99m MDP IV. INDICATIONS: Bilateral chronic shoulder pain TECHNIQUE: Delayed whole-body scintigrams were obtained approximately 3-4 hours after intravenous injection of radiotracer. Anterior and posterior views were acquired from vertex to feet. COMPARISON: [facility], CR, XR SHOULDER RT MIN 2V, 10/28/2020, 16:45. [facility], CR, XR CLAVICLE RT, 10/28/2020, 16:45. [facility], CT, CT ANGIO CHEST PE PROTOCOL, 10/28/2019, 17:21. FINDINGS: Physiologic uptake is noted within the kidneys and bladder. No areas of otherwise abnormal uptake are identified. IMPRESSION: No areas of abnormal uptake are identified. Dictated by: Edita Duffy M.D. on 11/10/2020 at 15:34 Approved by: Edita Duffy M.D. on 11/10/2020 at 15:39
== END ==
PROVIDERS: PCP Family Medicine; Referring Provider Nurse Practitioner Family; Visit Provider Nurse Practitioner Family
DX: M25.511 Pain in right shoulder (principal); M25.512 Pain in left shoulder; G89.29 Other chronic pain
CPT/HCPCS: 78306; A9503

== ENCOUNTER → 2020-12-07 09:00 | Outpatient (CLI) | payer OTHER, MEDICAID, SELFPAY | PROVIDERS: PCP Family Medicine; Visit Provider Registered Nurse | DX: N39.0 Urinary tract infection, site not specified (principal) | CPT/HCPCS: 87086 ==

== ENCOUNTER → 2020-12-23 14:43 | Outpatient (CLI) | payer OTHER, MEDICAID, SELFPAY ==
[2020-12-23 16:53] LABS: Hemoglobin A1C% w Est Avg Glu 7.4 % (4.0-6.0)
[2020-12-23 16:59] LABS: BUN Creatinine Ratio 17.9 (6-22); Blood Urea Nitrogen 10 mg/dL (7-17); Calcium 10.3 mg/dL (8.4-10.2); Carbon Dioxide 19 mmol/L (22-32); Chloride 106 mmol/L (98-107); Estimated Glomerular Filt Rate > 60.0 mL/min (>60); Glucose 125 mg/dL (70-100); HEMOLYSIS < 15 (0-50); Potassium 4.9 mmol/L (3.4-5.1); Sodium 139 mmol/L (137-145)
[2020-12-24 11:12] LABS: Calcium 9.9 mg/dL (8.7-10.2); Parathyroid Hormone, Intact 23 pg/mL (15-65)
== END ==
PROVIDERS: PCP Family Medicine; Referring Provider Family Medicine; Visit Provider Family Medicine
DX: E11.9 Type 2 diabetes mellitus without complications (principal); E83.52 Hypercalcemia
CPT/HCPCS: 36415; 80048; 82310; 83036; 83970

== ENCOUNTER → 2021-02-10 14:44 | Outpatient (CLI) | payer OTHER, MEDICAID, SELFPAY ==
[2021-02-10 16:17] LABS: Alanine Aminotransferase 21 IU/L (<35); Albumin 4.3 g/dL (3.5-5.0); Albumin Globulin Ratio 1.2 (1.0-2.8); Alkaline Phosphatase 93 U/L (38-126); Aspartate Aminotransferase 20 IU/L (14-36); Bilirubin Total 0.3 mg/dL (0.2-1.3); Blood Urea Nitrogen 8 mg/dL (7-17); Calcium 9.7 mg/dL (8.4-10.2); Carbon Dioxide 21 mmol/L (22-32); Chloride 106 mmol/L (98-107); Estimated Glomerular Filt Rate > 60.0 mL/min (>60); Globulin 3.6 g/dL (1.7-4.1); Glucose 226 mg/dL (70-100); HEMOLYSIS < 15 (0-50); Potassium 3.5 mmol/L (3.4-5.1); Sodium 140 mmol/L (137-145); Total Protein 7.9 g/dL (6.3-8.2)
[2021-02-10 16:19] LABS: Hemoglobin A1C% w Est Avg Glu 7.9 % (4.0-6.0)
== END ==
PROVIDERS: PCP Family Medicine; Referring Provider Family Medicine; Visit Provider Family Medicine
DX: E11.9 Type 2 diabetes mellitus without complications (principal)
CPT/HCPCS: 36415; 80053; 83036

== ENCOUNTER → 2021-09-17 09:13 | Outpatient (CLI) | payer OTHER, MEDICAID, SELFPAY ==
[2021-09-17 10:49] LABS: Hemoglobin A1C% w Est Avg Glu 7.6 % (4.0-6.0)
[2021-09-17 10:51] LABS: BUN Creatinine Ratio 10.9 (6-22); Blood Urea Nitrogen 6 mg/dL (7-17); Calcium 10.3 mg/dL (8.4-10.2); Carbon Dioxide 23 mmol/L (22-32); Chloride 106 mmol/L (98-107); Estimated Glomerular Filt Rate > 60.0 mL/min (>60); Glucose 171 mg/dL (70-100); HEMOLYSIS < 15 (0-50); Potassium 3.9 mmol/L (3.4-5.1); Sodium 139 mmol/L (137-145)
== END ==
PROVIDERS: PCP Family Medicine; Referring Provider Family Medicine; Visit Provider Family Medicine
DX: E11.9 Type 2 diabetes mellitus without complications (principal)
CPT/HCPCS: 36415; 80048; 83036

== ENCOUNTER → 2021-11-22 16:43 | Outpatient (CLI) | payer OTHER, MEDICAID, SELFPAY ==
--- NOTE | 2021-11-22 16:45 | DI.RAD.S_ITS ---
PROCEDURE: XR LUMBAR SPINE 2-3V INDICATIONS: back pain TECHNIQUE: 3 views of the lumbar spine were acquired. COMPARISON: None. FINDINGS: Bones: 5 dzy-wop-prhjhmu vertebrae are present. There is normal bony alignment. No vertebral body compression fractures. No suspicious bony lesions. Facet arthrosis is seen in the lower lumbar spine. Anterior osteophytes are present at multiple levels. No significant disc space narrowing. Soft tissues: Overlying bowel gas pattern is normal. No suspicious soft tissue calcifications. IMPRESSION: 1. Degenerative changes and facet arthrosis. 2. No significant disc space narrowing. Dictated by: Fabian Starkey M.D. on 11/23/2021 at 8:15 Approved by: Fabian Starkey M.D. on 11/23/2021 at 8:17
== END ==
PROVIDERS: Family Provider Family Medicine; PCP Family Medicine; Referring Provider Family Medicine; Visit Provider Family Medicine
DX: M54.50 Low back pain, unspecified (principal); M47.816 Spondylosis without myelopathy or radiculopathy, lumbar region
CPT/HCPCS: 72100

== ENCOUNTER 2021-12-16 14:30 | Outpatient (RCR) | payer OTHER, MEDICAID, SELFPAY ==
--- NOTE | 2021-11-22 14:30 | PT.OIE ---
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) Pain in right shoulder (11/23/21) Pain in left shoulder (11/23/21) Soft tissue disorder, unspecified (11/23/21) Past Medical History (Last Reviewed 11/22/21 @ 19:01 by Dior Rios MD) Abnormal chest xray (~2001) Abnormal Pap smear of cervix Acne Anemia (~1991) Anxiety Asthma Bilateral carpal tunnel syndrome (06/09/17) Chlamydia (~1998) Depression Diabetes mellitus (~2015) Genital warts (~2015) Heavy menstrual period Hidradenitis suppurativa History of bilateral oophorectomies (~2018) History of carpal tunnel release History of MRSA infection Invasive ductal carcinoma of left breast, stage 2 Irregular menses Mumps (~1992) Occult fracture of scaphoid of left wrist Ovarian cyst Painful menstrual periods PTSD (post-traumatic stress disorder) Right knee meniscal tear S/P mastectomy Shoulder pain Status post bilateral mastectomy (~12/2018) Substance abuse Tobacco use disorder UTI (urinary tract infection) Past Surgical History (Last Updated 02/13/21 @ 20:52 by Bonnie Goff DO) Cyst (~2015) History of bilateral oophorectomies (~2018) History of carpal tunnel release S/P mastectomy Status post bilateral mastectomy (~12/2018) Status post delivery (~1999) Status post delivery (~2008) Status post colonoscopy (11/25/16) Visit Care Team Role Provider Type Dior Rios MD Primary Care Provider Physician Specialty: [facility] Practice Address: [address] [place] [address], [facility] Phone: Fax: Email: [email or web address] DO Attending Provider Physician Family Provider Referring Provider Specialty: [facility] Address: [address] [place] [address], [address], [place], [address] Email: [email or web address] Physical Therapy Initial Evaluation PT-OP-A Visit Information Start: 11/22/21 08:08 Freq: Status: Active Protocol: Document 11/22/21 14:30 [facility] (Rec: 11/22/21 16:13 [facility] [id number]) Out-Patient Physical Therapy Visit Information Visit Information Visit Type Initial Evaluation Visit Start Time 14:30 Visit Stop Time 15:17 Total Visit Minutes 47 Visit Number 1 Evaluation Information Evaluation Date 11/22/21 Precautions Precautions bilateral UE lymphedema, history of breast cancer left PT-OP-B Current Condition Start: 11/22/21 08:08 Freq: Status: Active Protocol: Document 11/22/21 14:30 [facility] (Rec: 11/22/21 16:13 [facility] [id number]) Current Condition History of Current Condition Onset Date 2019 Current Complaints bilateral UE lymphedema History of Current Condition 2019 left mastectomy, right as preventive in 2020. Had swelling right away after surgeries left greater than right. C/o upper arm, forearm, and hand swelling. Had 12 lymphatic massages last year from a massage therapist, somewhat helpful but has never worn compression . Can't wear off the shelf garments due to shape of arms. Has done a lot of PT for her shoulders for ROM. Has been measured for bilateral UE compression sleeves but having difficulty getting approval from insurance. Doing peer to peer consult with insurance company and doctor 12/01/21. States arms so heavy that can' t get her arms above her head. Also seeing neurologist due to balance and other issues. Goes to [employer] for exercise when feels up to it. Bilateral carpel tunnel surgeries within past year which seems to have made lymphedema worse. At times states she has gotten firm areas in her arms which she has managed to massage out. Treatment Goals Patient/Caregiver Goals decrease swelling, and get fit with appropriate compression garments. 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 Has caregiver assistance in the home. PT-OP-J Posture/Palpation/Skin Start: 11/22/21 08:08 Freq: Status: Active Protocol: Document 11/22/21 14:30 [facility]AK (Rec: 11/23/21 11:15 [facility] [id number]) Posture Evaluation Position Sitting Head/C-Spine Posture Forward Head T-Spine Posture Increased Kyphosis Shoulder Posture (L) Rounded,(R) Rounded Scapula Posture (L) Protracted,(R) Protracted Arm Posture (L) Internally Rotated,(R) Internally Rotated Palpation Assessment Location bilateral arms Palpation Findings Edema,Soft Tissue Tightness, Spasm Palpation Details no palpable fibrosis or axillary cording, no signs or symptoms of infection. Moderate to severe soft tissue tightness subaxillary region left greater than right with decrease in scar mobility anterior chest. Moderate lymphedema in upper arms, mild in forearms and hands Skin Assessment Incisional Assessment Incision Appearance/Comments well-healed mastectomy scars, decreased scar mobility PT-OP-K Range of Motion Start: 11/22/21 08:08 Freq: Status: Active Protocol: Document 11/22/21 14:30 [facility] (Rec: 11/23/21 11:15 [facility] [id number]) Cervical Spine Range of Motion Cervical Spine Active Comments WFL Shoulder Goniometric Range of Motion Shoulder Right Shoulder ROM WFL No Testing Position Sitting Flexion 95 Extension 15 Abduction 85 External Rotation at 45 degrees 45 Abduction Internal Rotation Behind Back (text) 40 Left Active Shoulder ROM WFL No Testing Position Sitting Flexion 80 Extension 10 Abduction 75 External Rotation at 45 degrees 45 Abduction Internal Rotation 40 Shoulder ROM Limitations Shoulder ROM Limitations Soft Tissue Tightness,Swelling Elbow/Forearm Range of Motion Elbow/Forearm surjit Elbow/Forearm ROM WFL Yes PT-OP-N Lymphedema Start: 11/22/21 08:08 Freq: Status: Active Protocol: Document 11/22/21 14:30 [facility] (Rec: 11/23/21 16:46 [facility] [id number]) Lymphedema Measurements Upper Extremity Circumference Measurements Right MCP 21 cm Dorsum of Hand 23 cm Wrist 29.4 cm 5 cm From Wrist Crease 22.9 cm 10 cm From Wrist Crease 27 cm 15 cm From Wrist Crease 31.3 cm 20 cm From Wrist Crease 33.9 cm 25 cm From Wrist Crease 33.8 cm 30 cm From Wrist Crease 40 cm 35 cm From Wrist Crease 50.5 cm 40 cm From Wrist Crease 59.8 cm 45 cm From Wrist Crease 57.8 cm Elbow Joint 33.3 cm left UE MCP 21 cm Dorsum of Hand 23.7 cm Wrist 20.3 cm 5 cm From Wrist Crease 23.9 cm 10 cm From Wrist Crease 28.5 cm 15 cm From Wrist Crease 32 cm 20 cm From Wrist Crease 34.3 cm 25 cm From Wrist Crease 34.7 cm 30 cm From Wrist Crease 49.3 cm 35 cm From Wrist Crease 54.8 cm 40 cm From Wrist Crease 58.5 cm 45 cm From Wrist Crease 58 cm Elbow Joint 32.6 cm PT-OP-Q Treatments Start: 11/22/21 08:08 Freq: Status: Active Protocol: Document 11/22/21 14:30 [facility] (Rec: 11/23/21 11:15 [facility] [id number]) Lymphedema Treatment Lymphedema Wrapping Body Location right UE trial Materials Tricofix size F, finger bandages, channel foam, Artiflex (2 rolls), Comprilan 6,8,10. Only one arm due to time limitations Other Will benefit from 4th roll for UE. Patient Education Other Patient instructed to watch [employer]) on YouTube for education on lymphedema and self care. PT-OP-T Assessment and Plan Start: 11/22/21 08:08 Freq: Status: Active Protocol: Document 11/22/21 14:30 [facility] (Rec: 11/23/21 11:15 [facility] [id number]) Physical Therapy Assessment Rehab Potential Rehabilitation Potential Good Evaluation Complexity Number of Personal Factors/Comorbidities 1-2 Number of Body Systems Impaired 3 Clinical Presentation at Evaluation Evolving Impairments Impairments Activity Tolerance,Edema, Functional Activities,ROM,Soft Tissue Mobility Goals Four Impairment pain bilateral shoulders 5/10 on pain scale Correction Goal (LTG) Decrease lymphedema and improve shoulder mobility sufficient to decrease patient 's shoulder pain to no greater than 2/10 LTG Duration 01/22/22 Three Impairment Decreased soft tissue mobility chest and subaxillary right Impairment Soft tissue tightness impairing flow of lymphatic fluid, contributing to lymphedema, and limiting shoulder ROM Short Term Goal (STG) Patient to be independent in therapeutic exercises and self -massage STG Duration 12/22/21 Correction Goal (LTG) Improve chest and subaxillary soft tissue mobility to WNL to facilitate lymphatic flow and improve shoulder ROM to WNL to allow her to do her usual activities including reaching overhead and behind her back. LTG Duration 01/22/22 Two Impairment decreased activity tolerance due to lymphedema Impairment lymphedema life impact scale 71% Short Term Goal (STG) Decrease lymphedema life impact scale to no greater than 50% STG Duration 12/22/21 Feed Inspection Supervisor Goal (LTG) Decrease lymphedema life impact scale to no greater than 25% LTG Duration 01/22/22 One Impairment lymphedema bilateral UE's Short Term Goal (STG) Patient to be instrsucted in all aspects of lymphedema care including skin care, manual lymphatic drainage, self- bandaging, lymphedema exercises, options for compression. STG Duration 12/22/21 [employer] Inspection Supervisor Goal (LTG) Decrease lymphedema to stable level bilateral UE's (no increase or decrease greater than 1 cm over the course of 1 week) and help patient get fit with appropriate custom bilateral UE compression sleeves. Patient to be independent with all aspects of self-care for lymphedema to include skin care, self- manual lymphatic drainage, self-bandaging, lymphedema exercises, and appropriate use of compression. LTG Duration 01/22/22 Assessment Summary Assessment Patient presents with moderate lymphedema bilaterally left greater than right following bilateral mastectomy due to left breast cancer. She reports swelling in her arms pretty quickly after her surgeries but hasn't worn any compression or had instruction in how to self-manage her lymphedema. So far compression garments have been denied by her insurance company. This patient requires PT for lymphedema management to decrease her lymphedema to a stable level, educate her in all aspects of self-management, and help her to obtain appropriate compression garments. Soft tissue restrictions in chest and subaxillary area are highly contributory to the lymphedema. Both the weight of her arms due to lymphedema , the soft tissue restrictions , and pain have resulted in limited ability for her to use her UE's especially for overhead activities. She is at high risk for lymphedema complications including cellulitis if her lymphedema is not treated, and the lymphedema is having a highly negative impact on her quality of life as evidenced by the score of 71% on the Lymphedema Life Impact Scale. She currently has to have caregiver assistance and/or the assistance of her 13 year old daughter to to wash her hair and help her with other ADL's due to limited ability to lift her arms. The treatment required for her bilateral lymphedema is extensive and I estimate it will take sixteen 90 minute lymphedema treatments to complete complete comprehensive and effective treatment for this patient. Physical Therapy Plan Frequency and Duration Frequency of Treatment 16 visists Duration of Treatment 8 weeks Plan of Care Start Date 11/22/21 Plan of Care End Date 01/22/22 Therapeutic Interventions Therapeutic Interventions Aquatic Therapy,Home Exercise Program,Lymphedema Management, Manual Therapy,Self-Care/Home Management,Soft Tissue Mobilization,Taping, Therapeutic Activities, Therapeutic Exercises Next Visit Focus/Plan Next Note Type Treatment Note Next Visit Plan Assess response to lymphedema bandaging. Initiate manual lymphatic drainage, instruct in lymphedema exercises, bandage bilateral UE's with compression bandaging. Issue patient educational materials and discuss precautions.
--- NOTE | 2021-11-23 16:52 | PT.OPPOC ---
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) Pain in right shoulder (11/23/21) Pain in left shoulder (11/23/21) Soft tissue disorder, unspecified (11/23/21) Visit Care Team Role Provider Type Dior Rios MD Primary Care Provider Physician Specialty: Family Practice Address: [address] [place] [address], [address] Phone: Fax: Email: [email or web address] Attending Provider Physician Family Provider Referring Provider Specialty: [facility] Address: [address] [place] [address], [facility] [address], [place], [address] Email: [email or web address] Plan Of Care PT-OP-T Assessment and Plan Start: 11/22/21 08:08 Freq: Status: Active Protocol: Document 11/22/21 14:30 [facility] (Rec: 11/23/21 11:15 [facility] [id number]) Physical Therapy Assessment Rehab Potential Rehabilitation Potential Good Evaluation Complexity Number of Personal Factors/Comorbidities 1-2 Number of Body Systems Impaired 3 Clinical Presentation at Evaluation Evolving Impairments Impairments Activity Tolerance,Edema, Functional Activities,ROM,Soft Tissue Mobility Goals Four Impairment pain bilateral shoulders 5/10 on pain scale Managed Care Provider Goal (LTG) Decrease lymphedema and improve shoulder mobility sufficient to decrease patient 's shoulder pain to no greater than 2/10 LTG Duration 01/22/22 Three Impairment Decreased soft tissue mobility chest and subaxillary right Impairment Soft tissue tightness impairing flow of lymphatic fluid, contributing to lymphedema, and limiting shoulder ROM Short Term Goal (STG) Patient to be independent in therapeutic exercises and self -massage STG Duration 12/22/21 Managed Care Provider Goal (LTG) Improve chest and subaxillary soft tissue mobility to WNL to facilitate lymphatic flow and improve shoulder ROM to WNL to allow her to do her usual activities including reaching overhead and behind her back. LTG Duration 01/22/22 Two Impairment decreased activity tolerance due to lymphedema Impairment lymphedema life impact scale 71% Short Term Goal (STG) Decrease lymphedema life impact scale to no greater than 50% STG Duration 12/22/21 [facility] Goal (LTG) Decrease lymphedema life impact scale to no greater than 25% LTG Duration 01/22/22 One Impairment lymphedema bilateral UE's Short Term Goal (STG) Patient to be instrsucted in all aspects of lymphedema care including skin care, manual lymphatic drainage, self- bandaging, lymphedema exercises, options for compression. STG Duration 12/22/21 [facility] Goal (LTG) Decrease lymphedema to stable level bilateral UE's (no increase or decrease greater than 1 cm over the course of 1 week) and help patient get fit with appropriate custom bilateral UE compression sleeves. Patient to be independent with all aspects of self-care for lymphedema to include skin care, self- manual lymphatic drainage, self-bandaging, lymphedema exercises, and appropriate use of compression. LTG Duration 01/22/22 Assessment Summary Assessment Patient presents with moderate lymphedema bilaterally left greater than right following bilateral mastectomy due to left breast cancer. She reports swelling in her arms pretty quickly after her surgeries but hasn't worn any compression or had instruction in how to self-manage her lymphedema. So far compression garments have been denied by her insurance company. This patient requires PT for lymphedema management to decrease her lymphedema to a stable level, educate her in all aspects of self-management, and help her to obtain appropriate compression garments. Soft tissue restrictions in chest and subaxillary area are highly contributory to the lymphedema. Both the weight of her arms due to lymphedema , the soft tissue restrictions , and pain have resulted in limited ability for her to use her UE's especially for overhead activities. She is at high risk for lymphedema complications including cellulitis if her lymphedema is not treated, and the lymphedema is having a highly negative impact on her quality of life as evidenced by the score of 71% on the Lymphedema Life Impact Scale. She currently has to have caregiver assistance and/or the assistance of her 13 year old daughter to to wash her hair and help her with other ADL's due to limited ability to lift her arms. The treatment required for her bilateral lymphedema is extensive and I estimate it will take sixteen 90 minute lymphedema treatments to complete complete comprehensive and effective treatment for this patient. Physical Therapy Plan Frequency and Duration Frequency of Treatment 16 visists Duration of Treatment 8 weeks Plan of Care Start Date 11/22/21 Plan of Care End Date 01/22/22 Therapeutic Interventions Therapeutic Interventions Aquatic Therapy,Home Exercise Program,Lymphedema Management, Manual Therapy,Self-Care/Home Management,Soft Tissue Mobilization,Taping, Therapeutic Activities, Therapeutic Exercises Next Visit Focus/Plan Next Note Type Treatment Note Next Visit Plan Assess response to lymphedema bandaging. Initiate manual lymphatic drainage, instruct in lymphedema exercises, bandage bilateral UE's with compression bandaging. Issue patient educational materials and discuss precautions. Plan of Care Dates Plan of Care Start Date 11/22/21 Plan of Care End Date 01/22/22 Electronically Signed by: Jessenia Blackman, PT 11/23/21 4824 Please Sign and Return: I have reviewed this Plan of Care and certify that the skilled therapy services above are required to meet the patient?s needs. Physician Signature Date Printed Name and Credentials Clinical Instructor Signature Printed Name and Credentials
--- NOTE | 2021-11-23 17:06 | PT.OTN ---
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) Pain in right shoulder (11/23/21) Pain in left shoulder (11/23/21) Soft tissue disorder, unspecified (11/23/21) Physical Therapy Treatment Note PT-OP-A Visit Information Start: 11/22/21 08:08 Freq: Status: Active Protocol: Document 11/23/21 16:52 [facility]AK (Rec: 11/23/21 17:04 SAK [id number]) Out-Patient Physical Therapy Visit Information Visit Information Visit Type Treatment Note Visit Start Time 14:30 Visit Stop Time 15:50 Total Visit Minutes 80 Visit Number 2 Evaluation Information Evaluation Date 11/22/21 Precautions Precautions bilateral UE lymphedema, history of breast cancer left PT-OP-B Current Condition Start: 11/22/21 08:08 Freq: Status: Active Protocol: Document 11/22/21 14:30 [facility]AK (Rec: 11/22/21 16:13 SAK [id number]) Current Condition History of Current Condition Onset Date 2019 Current Complaints bilateral UE lymphedema History of Current Condition 2019 left mastectomy, right as preventive in 2019. Had swelling right away after surgeries left greater than right. C/o upper arm, forearm, and hand swelling. Had 12 lymphatic massages last year from a massage therapist, somewhat helpful but has never worn compression . Can't wear off the shelf garments due to shape of arms. Has done a lot of PT for her shoulders for ROM. Has been measured for bilateral UE compression sleeves but having difficulty getting approval from insurance. Doing peer to peer consult with insurance company and doctor 12/01/21. States arms so heavy that can' t get her arms above her head. Also seeing neurologist due to balance and other issues. Goes to [place] for exercise when feels up to it. Bilateral carpel tunnel surgeries within past year which seems to have made lymphedema worse. At times states she has gotten firm areas in her arms which she has managed to massage out. Treatment Goals Patient/Caregiver Goals decrease swelling, and get fit with appropriate compression garments. Prior Functional Status Baseline Function- ADL's Independent Baseline Function- Mobility Independent Baseline Function- Work/School worked at [employer] sole tier Baseline Function- Other PMH: back pain, depression, DM , dizziness, falls, Current Functional Impairments (Reported) Functional Limitations- ADL's unable to lift her arms above her head or behind her back due to lymphedema Functional Limitations- Work/School unable to work Personal Factors Other Personal Factors That May Effect single mom, boyfriend left Therapy/Recovery after cancer diagnosis. Has caregiver assistance in the home. PT-OP-C Subjective Start: 11/22/21 08:08 Freq: Status: Active Protocol: Document 11/23/21 16:52 [facility] (Rec: 11/23/21 17:04 [facility] [id number]) OP-PT Subjective Patient Comments Patient Comments Patient reports able to leave bandaging on until 3 am, could tell her edema had reduced some but wasn't able to tolerate longer. OP-PT Pain Assessment Location Bilateral Shoulder Intensity 5 PT-OP-J Posture/Palpation/Skin Start: 11/22/21 08:08 Freq: Status: Active Protocol: Document 11/22/21 14:30 [facility] (Rec: 11/23/21 11:15 [facility] [id number]) Posture Evaluation Position Sitting Head/C-Spine Posture Forward Head T-Spine Posture Increased Kyphosis Shoulder Posture (L) Rounded,(R) Rounded Scapula Posture (L) Protracted,(R) Protracted Arm Posture (L) Internally Rotated,(R) Internally Rotated Palpation Assessment Location bilateral arms Palpation Findings Edema,Soft Tissue Tightness, Spasm Palpation Details no palpable fibrosis or axillary cording, no signs or symptoms of infection. Moderate to severe soft tissue tightness subaxillary region left greater than right with decrease in scar mobility anterior chest. Moderate lymphedema in upper arms, mild in forearms and hands Skin Assessment Incisional Assessment Incision Appearance/Comments well-healed mastectomy scars, decreased scar mobility PT-OP-K Range of Motion Start: 11/22/21 08:08 Freq: Status: Active Protocol: Document 11/22/21 14:30 [facility] (Rec: 11/23/21 11:15 [facility] [id number]) Cervical Spine Range of Motion Cervical Spine Active Comments WFL Shoulder Goniometric Range of Motion Shoulder Right Shoulder ROM WFL No Testing Position Sitting Flexion 95 Extension 15 Abduction 85 External Rotation at 45 degrees 45 Abduction Internal Rotation Behind Back (text) 40 Left Active Shoulder ROM WFL No Testing Position Sitting Flexion 80 Extension 10 Abduction 75 External Rotation at 45 degrees 45 Abduction Internal Rotation 40 Shoulder ROM Limitations Shoulder ROM Limitations Soft Tissue Tightness,Swelling Elbow/Forearm Range of Motion Elbow/Forearm surjit Elbow/Forearm ROM WFL Yes PT-OP-N Lymphedema Start: 11/22/21 08:08 Freq: Status: Active Protocol: Document 11/22/21 14:30 [facility] (Rec: 11/23/21 16:46 [facility] [id number]) Lymphedema Measurements Upper Extremity Circumference Measurements Right MCP 21 cm Dorsum of Hand 23 cm Wrist 29.4 cm 5 cm From Wrist Crease 22.9 cm 10 cm From Wrist Crease 27 cm 15 cm From Wrist Crease 31.3 cm 20 cm From Wrist Crease 33.9 cm 25 cm From Wrist Crease 33.8 cm 30 cm From Wrist Crease 40 cm 35 cm From Wrist Crease 50.5 cm 40 cm From Wrist Crease 59.8 cm 45 cm From Wrist Crease 57.8 cm Elbow Joint 33.3 cm left UE MCP 21 cm Dorsum of Hand 23.7 cm Wrist 20.3 cm 5 cm From Wrist Crease 23.9 cm 10 cm From Wrist Crease 28.5 cm 15 cm From Wrist Crease 32 cm 20 cm From Wrist Crease 34.3 cm 25 cm From Wrist Crease 34.7 cm 30 cm From Wrist Crease 49.3 cm 35 cm From Wrist Crease 54.8 cm 40 cm From Wrist Crease 58.5 cm 45 cm From Wrist Crease 58 cm Elbow Joint 32.6 cm PT-OP-Q Treatments Start: 11/22/21 08:08 Freq: Status: Active Protocol: Document 11/23/21 16:52 [facility] (Rec: 11/23/21 17:04 [facility] [id number]) Cardio Equipment Recumbent Stepper (Sci-Fit) Duration (Minutes) 5 Resistance 1 Seat Position 11 Other to facilitate lymphatic flow after bandaging Therapeutic Exercises Supine Exercises pec stretch Reps/Minutes 2x30 Comments issued written handout Sidelying Exercises open book Side left Reps/Minutes 5x Comments issued handout Lymphedema Treatment Manual Lymphatic Drainage Location for bilateral UE lymphedema Duration 40 Comments emphasis on AAI and INOCENTE pathways, deep breathing Lymphedema Wrapping Body Location Bilateral UE's Materials Tricofix size F, finger bandages, channel foam, Artiflex (2 rolls), Comprilan 6,8,10, 10. Patient Education Lymphedema Pathology shown posters and discussed Lymphedema Precautions issued written handout and discussed Compression Garments discussion of options Self Manual Lymphatic Drainage Instructed and issued written handout and information for video Sequential Lymphedema Exercises instructed and issued handout PT-OP-T Assessment and Plan Start: 11/22/21 08:08 Freq: Status: Active Protocol: Document 11/23/21 16:52 [facility] (Rec: 11/23/21 17:04 [facility] [id number]) Physical Therapy Assessment Rehab Potential Rehabilitation Potential Good Evaluation Complexity Number of Personal Factors/Comorbidities 1-2 Number of Body Systems Impaired 3 Clinical Presentation at Evaluation Evolving Impairments Impairments Activity Tolerance,Edema, Functional Activities,Pain,ROM ,Soft Tissue Mobility Goals Four Impairment pain bilateral shoulders 5/10 on pain scale Tool Room Supervisor Goal (LTG) Decrease lymphedema and improve shoulder mobility sufficient to decrease patient 's shoulder pain to no greater than 2/10 LTG Duration 01/22/22 Three Impairment Decreased soft tissue mobility chest and subaxillary right Impairment Soft tissue tightness impairing flow of lymphatic fluid, contributing to lymphedema, and limiting shoulder ROM Short Term Goal (STG) Patient to be independent in therapeutic exercises and self -massage STG Duration 12/22/21 Tool Room Supervisor Goal (LTG) Improve chest and subaxillary soft tissue mobility to WNL to facilitate lymphatic flow and improve shoulder ROM to WNL to allow her to do her usual activities including reaching overhead and behind her back. LTG Duration 01/22/22 Two Impairment decreased activity tolerance due to lymphedema Impairment lymphedema life impact scale 71% Short Term Goal (STG) Decrease lymphedema life impact scale to no greater than 50% STG Duration 12/22/21 [facility] Goal (LTG) Decrease lymphedema life impact scale to no greater than 25% LTG Duration 01/22/22 One Impairment lymphedema bilateral UE's Short Term Goal (STG) Patient to be instrsucted in all aspects of lymphedema care including skin care, manual lymphatic drainage, self- bandaging, lymphedema exercises, options for compression. STG Duration 12/22/21 Tool Room Supervisor Goal (LTG) Decrease lymphedema to stable level bilateral UE's (no increase or decrease greater than 1 cm over the course of 1 week) and help patient get fit with appropriate custom bilateral UE compression sleeves. Patient to be independent with all aspects of self-care for lymphedema to include skin care, self- manual lymphatic drainage, self-bandaging, lymphedema exercises, and appropriate use of compression. LTG Duration 01/22/22 Assessment Summary Assessment Patient demonstrated good understanding of lymphedema pathology, precautions, ther ex. Needs further instruction in self-massage and self- bandaging; was issued written instructions and information for [facility] videos. Appears compression was helpful, though not able to wear all night. Due to the size of patient's arms with lymphedema concentrated in her upper arms, she is not able to fit in an off the shelf compression garment and will need custom garments. Physical Therapy Plan Frequency and Duration Frequency of Treatment 16 visists Duration of Treatment 8 weeks Plan of Care Start Date 11/22/21 Plan of Care End Date 01/22/22 Therapeutic Interventions Therapeutic Interventions Aquatic Therapy,Home Exercise Program,Lymphedema Management, Manual Therapy,Self-Care/Home Management,Soft Tissue Mobilization,Taping, Therapeutic Activities, Therapeutic Exercises Next Visit Focus/Plan Next Note Type Treatment Note Next Visit Plan Continue lymphedema management , assess response to having bilateral UE's bandaged. Continue MLD, skin care, compression bandaging, ther ex .
--- NOTE | 2021-11-24 16:36 | PT.OTN ---
Current Diagnoses Postmastectomy lymphedema syndrome (11/24/21) Pain in right shoulder (11/24/21) Pain in left shoulder (11/24/21) Soft tissue disorder, unspecified (11/24/21) Physical Therapy Treatment Note PT-OP-A Visit Information Start: 11/22/21 08:08 Freq: Status: Active Protocol: Document 11/24/21 14:31 [facility] (Rec: 11/24/21 14:38 [facility]AK [id number]) Out-Patient Physical Therapy Visit Information Visit Information Visit Type Treatment Note Visit Start Time 14:30 Visit Stop Time 15:50 Total Visit Minutes 80 Visit Number 2 Precautions Precautions bilateral UE lymphedema, history of breast cancer left PT-OP-B Current Condition Start: 11/22/21 08:08 Freq: Status: Active Protocol: Document 11/22/21 14:30 [facility] (Rec: 11/22/21 16:13 SAK [id number]) Current Condition History of Current Condition Onset Date 2019 Current Complaints bilateral UE lymphedema History of Current Condition 2019 left mastectomy, right as preventive in 2019. Had swelling right away after surgeries left greater than right. C/o upper arm, forearm, and hand swelling. Had 12 lymphatic massages last year from a massage therapist, somewhat helpful but has never worn compression . Can't wear off the shelf garments due to shape of arms. Has done a lot of PT for her shoulders for ROM. Has been measured for bilateral UE compression sleeves but having difficulty getting approval from insurance. Doing peer to peer consult with insurance company and doctor 12/01/21. States arms so heavy that can' t get her arms above her head. Also seeing neurologist due to balance and other issues. Goes to [email or web address] for exercise when feels up to it. Bilateral carpel tunnel surgeries within past year which seems to have made lymphedema worse. At times states she has gotten firm areas in her arms which she has managed to massage out. Treatment Goals Patient/Caregiver Goals decrease swelling, and get fit with appropriate compression garments. Prior Functional Status Baseline Function- ADL's Independent Baseline Function- Mobility Independent Baseline Function- Work/School worked at [employer] Baseline Function- Other PMH: back pain, depression, DM , dizziness, falls, Current Functional Impairments (Reported) Functional Limitations- ADL's unable to lift her arms above her head or behind her back due to lymphedema Functional Limitations- Work/School unable to work Personal Factors Other Personal Factors That May Effect single mom, boyfriend left Therapy/Recovery after cancer diagnosis. Has caregiver assistance in the home. PT-OP-C Subjective Start: 11/22/21 08:08 Freq: Status: Active Protocol: Document 11/24/21 14:31 [facility] (Rec: 11/24/21 14:38 [facility] [id number]) OP-PT Subjective Patient Comments Patient Comments Bandaging lasted until 1 am, finger turning colors in the am and removed. Not able to self-bandage. Did exercises 10 min last night, 5 this am. [place] left arm smaller after removing, not much different right now after not bandaging. PT-OP-J Posture/Palpation/Skin Start: 11/22/21 08:08 Freq: Status: Active Protocol: Document 11/22/21 14:30 [facility] (Rec: 11/23/21 11:15 [facility] [id number]) Posture Evaluation Position Sitting Head/C-Spine Posture Forward Head T-Spine Posture Increased Kyphosis Shoulder Posture (L) Rounded,(R) Rounded Scapula Posture (L) Protracted,(R) Protracted Arm Posture (L) Internally Rotated,(R) Internally Rotated Palpation Assessment Location bilateral arms Palpation Findings Edema,Soft Tissue Tightness, Spasm Palpation Details no palpable fibrosis or axillary cording, no signs or symptoms of infection. Moderate to severe soft tissue tightness subaxillary region left greater than right with decrease in scar mobility anterior chest. Moderate lymphedema in upper arms, mild in forearms and hands Skin Assessment Incisional Assessment Incision Appearance/Comments well-healed mastectomy scars, decreased scar mobility PT-OP-K Range of Motion Start: 11/22/21 08:08 Freq: Status: Active Protocol: Document 11/22/21 14:30 [facility] (Rec: 11/23/21 11:15 [facility] [id number]) Cervical Spine Range of Motion Cervical Spine Active Comments WFL Shoulder Goniometric Range of Motion Shoulder Right Shoulder ROM WFL No Testing Position Sitting Flexion 95 Extension 15 Abduction 85 External Rotation at 45 degrees 45 Abduction Internal Rotation Behind Back (text) 40 Left Active Shoulder ROM WFL No Testing Position Sitting Flexion 80 Extension 10 Abduction 75 External Rotation at 45 degrees 45 Abduction Internal Rotation 40 Shoulder ROM Limitations Shoulder ROM Limitations Soft Tissue Tightness,Swelling Elbow/Forearm Range of Motion Elbow/Forearm surjit Elbow/Forearm ROM WFL Yes PT-OP-N Lymphedema Start: 11/22/21 08:08 Freq: Status: Active Protocol: Document 11/22/21 14:30 [facility] (Rec: 11/23/21 16:46 [facility] [id number]) Lymphedema Measurements Upper Extremity Circumference Measurements Right MCP 21 cm Dorsum of Hand 23 cm Wrist 29.4 cm 5 cm From Wrist Crease 22.9 cm 10 cm From Wrist Crease 27 cm 15 cm From Wrist Crease 31.3 cm 20 cm From Wrist Crease 33.9 cm 25 cm From Wrist Crease 33.8 cm 30 cm From Wrist Crease 40 cm 35 cm From Wrist Crease 50.5 cm 40 cm From Wrist Crease 59.8 cm 45 cm From Wrist Crease 57.8 cm Elbow Joint 33.3 cm left UE MCP 21 cm Dorsum of Hand 23.7 cm Wrist 20.3 cm 5 cm From Wrist Crease 23.9 cm 10 cm From Wrist Crease 28.5 cm 15 cm From Wrist Crease 32 cm 20 cm From Wrist Crease 34.3 cm 25 cm From Wrist Crease 34.7 cm 30 cm From Wrist Crease 49.3 cm 35 cm From Wrist Crease 54.8 cm 40 cm From Wrist Crease 58.5 cm 45 cm From Wrist Crease 58 cm Elbow Joint 32.6 cm PT-OP-Q Treatments Start: 11/22/21 08:08 Freq: Status: Active Protocol: Document 11/24/21 14:31 [facility] (Rec: 11/24/21 14:38 [facility] [id number]) Lymphedema Treatment Manual Lymphatic Drainage Location for bilateral UE lymphedema Duration 40 Comments emphasis on AAI and INOCENTE pathways, deep breathing Lymphedema Wrapping Body Location Bilateral UE's Materials Tricofix size F, finger bandages, channel foam forearms, black foam upper arms Artiflex (2 rolls), Comprilan 6,8,10, 10. Patient Education Self Manual Lymphatic Drainage patient instructed, has handout and plans to watch video Other Other self-bandaging: patient educated, plans to watch recommended video, has previously issued handout. Will not be able to do herself due to limited use of her UE' s but will work with caregiver PT-OP-T Assessment and Plan Start: 11/22/21 08:08 Freq: Status: Active Protocol: Document 11/24/21 14:31 [facility] (Rec: 11/24/21 14:38 [facility] [id number]) Physical Therapy Assessment Goals Four Impairment pain bilateral shoulders 5/10 on pain scale Nursing Home Goal (LTG) Decrease lymphedema and improve shoulder mobility sufficient to decrease patient 's shoulder pain to no greater than 2/10 LTG Duration 01/22/22 Three Impairment Decreased soft tissue mobility chest and subaxillary right Impairment Soft tissue tightness impairing flow of lymphatic fluid, contributing to lymphedema, and limiting shoulder ROM Short Term Goal (STG) Patient to be independent in therapeutic exercises and self -massage STG Duration 12/22/21 Town Administrator Goal (LTG) Improve chest and subaxillary soft tissue mobility to WNL to facilitate lymphatic flow and improve shoulder ROM to WNL to allow her to do her usual activities including reaching overhead and behind her back. LTG Duration 01/22/22 Two Impairment decreased activity tolerance due to lymphedema Impairment lymphedema life impact scale 71% Short Term Goal (STG) Decrease lymphedema life impact scale to no greater than 50% STG Duration 12/22/21 Town Administrator Goal (LTG) Decrease lymphedema life impact scale to no greater than 25% LTG Duration 01/22/22 One Impairment lymphedema bilateral UE's Short Term Goal (STG) Patient to be instrsucted in all aspects of lymphedema care including skin care, manual lymphatic drainage, self- bandaging, lymphedema exercises, options for compression. STG Duration 12/22/21 Nursing Home Goal (LTG) Decrease lymphedema to stable level bilateral UE's (no increase or decrease greater than 1 cm over the course of 1 week) and help patient get fit with appropriate custom bilateral UE compression sleeves. Patient to be independent with all aspects of self-care for lymphedema to include skin care, self- manual lymphatic drainage, self-bandaging, lymphedema exercises, and appropriate use of compression. LTG Duration 01/22/22 Assessment Summary Assessment Patient had reduction of UE size following bandaging but unable to wear 24 hrs. Removed at 1 am so lymphema returned. PT stressed need to identify who will be able to bandage her, watch recommended video, bring caregiver as able for training. Leave bandaging on 24 hrs as able. Physical Therapy Plan Frequency and Duration Frequency of Treatment 16 visists Duration of Treatment 8 weeks Plan of Care Start Date 11/22/21 Plan of Care End Date 01/22/22 Therapeutic Interventions Therapeutic Interventions Aquatic Therapy,Home Exercise Program,Lymphedema Management, Manual Therapy,Self-Care/Home Management,Soft Tissue Mobilization,Taping, Therapeutic Activities, Therapeutic Exercises Next Visit Focus/Plan Next Note Type Treatment Note Next Visit Plan Continue lymphedema management , assess benefit of increased foam use with bandaging. Continue MLD, skin care, compression bandaging, ther ex . Self-management training especially with bandaging.
--- NOTE | 2021-11-25 15:06 | PT-OP ANOTE ---
cancelled PT treatment due to fever
--- NOTE | 2021-11-29 16:34 | PT.OTN ---
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) Pain in right shoulder (11/29/21) Pain in left shoulder (11/29/21) Soft tissue disorder, unspecified (11/29/21) Physical Therapy Treatment Note PT-OP-A Visit Information Start: 11/22/21 08:08 Freq: Status: Active Protocol: Document 11/29/21 14:30 SAK (Rec: 11/29/21 14:52 SAK [id number]) Out-Patient Physical Therapy Visit Information Visit Information Visit Type Treatment Note Visit Start Time 14:30 Visit Stop Time 16:00 Total Visit Minutes 92 Visit Number 4 Precautions Precautions bilateral UE lymphedema, history of breast cancer left PT-OP-B Current Condition Start: 11/22/21 08:08 Freq: Status: Active Protocol: Document 11/22/21 14:30 SAK (Rec: 11/22/21 16:13 SAK [id number]) Current Condition History of Current Condition Onset Date 2019 Current Complaints bilateral UE lymphedema History of Current Condition 2019 left mastectomy, right as preventive in 2019. Had swelling right away after surgeries left greater than right. C/o upper arm, forearm, and hand swelling. Had 12 lymphatic massages last year from a massage therapist, somewhat helpful but has never worn compression . Can't wear off the shelf garments due to shape of arms. Has done a lot of PT for her shoulders for ROM. Has been measured for bilateral UE compression sleeves but having difficulty getting approval from insurance. Doing peer to peer consult with insurance company and doctor 12/01/21. States arms so heavy that can' t get her arms above her head. Also seeing neurologist due to balance and other issues. Goes to [employer] for exercise when feels up to it. Bilateral carpel tunnel surgeries within past year which seems to have made lymphedema worse. At times states she has gotten firm areas in her arms which she has managed to massage out. Treatment Goals Patient/Caregiver Goals decrease swelling, and get fit with appropriate compression garments. 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 Has caregiver assistance in the home. PT-OP-C Subjective Start: 11/22/21 08:08 Freq: Status: Active Protocol: Document 11/29/21 14:30 SAK (Rec: 11/29/21 14:52 [facility] [id number]) OP-PT Subjective Patient Comments Patient Comments Had to cancel due to not feeling well. Reports good results from compression but only had caregiver Monday, unable to wear over weekend. Unable to bandage herself. Not feeling well so didn't look up garments. Has a caregiver every day this week and will try to bring on Monday for education. PT-OP-J Posture/Palpation/Skin Start: 11/22/21 08:08 Freq: Status: Active Protocol: Document 11/22/21 14:30 [facility] (Rec: 11/23/21 11:15 [facility] [id number]) Posture Evaluation Position Sitting Head/C-Spine Posture Forward Head T-Spine Posture Increased Kyphosis Shoulder Posture (L) Rounded,(R) Rounded Scapula Posture (L) Protracted,(R) Protracted Arm Posture (L) Internally Rotated,(R) Internally Rotated Palpation Assessment Location bilateral arms Palpation Findings Edema,Soft Tissue Tightness, Spasm Palpation Details no palpable fibrosis or axillary cording, no signs or symptoms of infection. Moderate to severe soft tissue tightness subaxillary region left greater than right with decrease in scar mobility anterior chest. Moderate lymphedema in upper arms, mild in forearms and hands Skin Assessment Incisional Assessment Incision Appearance/Comments well-healed mastectomy scars, decreased scar mobility PT-OP-K Range of Motion Start: 11/22/21 08:08 Freq: Status: Active Protocol: Document 11/22/21 14:30 SAK (Rec: 11/23/21 11:15 [facility] [id number]) Cervical Spine Range of Motion Cervical Spine Active Comments WFL Shoulder Goniometric Range of Motion Shoulder Right Shoulder ROM WFL No Testing Position Sitting Flexion 95 Extension 15 Abduction 85 External Rotation at 45 degrees 45 Abduction Internal Rotation Behind Back (text) 40 Left Active Shoulder ROM WFL No Testing Position Sitting Flexion 80 Extension 10 Abduction 75 External Rotation at 45 degrees 45 Abduction Internal Rotation 40 Shoulder ROM Limitations Shoulder ROM Limitations Soft Tissue Tightness,Swelling Elbow/Forearm Range of Motion Elbow/Forearm surjit Elbow/Forearm ROM WFL Yes PT-OP-N Lymphedema Start: 11/22/21 08:08 Freq: Status: Active Protocol: Document 11/29/21 14:30 [facility] (Rec: 11/29/21 14:52 [facility] [id number]) Lymphedema Measurements Upper Extremity Circumference Measurements Right MCP 20.3 cm Dorsum of Hand 23 cm Wrist 19.4 cm 5 cm From Wrist Crease 23.2 cm 10 cm From Wrist Crease 27.4 cm 15 cm From Wrist Crease 31 cm 20 cm From Wrist Crease 33.3 cm 25 cm From Wrist Crease 36 cm 30 cm From Wrist Crease 46 cm 35 cm From Wrist Crease 53.5 cm 40 cm From Wrist Crease 58 cm 45 cm From Wrist Crease 57 cm Elbow Joint 33.3 cm left UE MCP 21.3 cm Dorsum of Hand 22.5 cm Wrist 19.8 cm 5 cm From Wrist Crease 23.9 cm 10 cm From Wrist Crease 27.8 cm 15 cm From Wrist Crease 31 cm 20 cm From Wrist Crease 32.6 cm 25 cm From Wrist Crease 38 cm 30 cm From Wrist Crease 55.5 cm 35 cm From Wrist Crease 57.7 cm 40 cm From Wrist Crease 53.7 cm 45 cm From Wrist Crease 53.7 cm Elbow Joint 33.4 cm PT-OP-Q Treatments Start: 11/22/21 08:08 Freq: Status: Active Protocol: Document 11/29/21 14:30 [facility] (Rec: 11/29/21 16:33 [facility] [id number]) Cardio Equipment Recumbent Stepper (Sci-Fit) Other not done due to time constraints Therapeutic Exercises Supine Exercises overhead stretch Reps/Minutes 2x30 pec stretch Reps/Minutes 2x30 Self-Care/Home Management Treatment Education Patient Education Home Exercise Program,Posture Lymphedema Treatment Manual Lymphatic Drainage Location for bilateral UE lymphedema Duration 40 Comments emphasis on AAI and INOCENTE pathways, deep breathing Lymphedema Wrapping Body Location Bilateral UE's Materials Tricofix size F, finger bandages, channel foam forearms, black foam upper arms Artiflex (2 rolls), Comprilan 6,8,10, 10. Patient Education Other Patient instructed to watch further [facility] videos on YouTube for education on lymphedema and self care. Other Other Instrsucted to have caregiver watch bandaging video with her . PT-OP-T Assessment and Plan Start: 11/22/21 08:08 Freq: Status: Active Protocol: Document 11/29/21 14:30 [facility] (Rec: 11/29/21 14:52 [facility] [id number]) Physical Therapy Assessment Goals Four Impairment pain bilateral shoulders 5/10 on pain scale Usp Goal (LTG) Decrease lymphedema and improve shoulder mobility sufficient to decrease patient 's shoulder pain to no greater than 2/10 LTG Duration 01/22/22 Three Impairment Decreased soft tissue mobility chest and subaxillary right Impairment Soft tissue tightness impairing flow of lymphatic fluid, contributing to lymphedema, and limiting shoulder ROM Short Term Goal (STG) Patient to be independent in therapeutic exercises and self -massage STG Duration 12/22/21 Usp Goal (LTG) Improve chest and subaxillary soft tissue mobility to WNL to facilitate lymphatic flow and improve shoulder ROM to WNL to allow her to do her usual activities including reaching overhead and behind her back. LTG Duration 01/22/22 Two Impairment decreased activity tolerance due to lymphedema Impairment lymphedema life impact scale 71% Short Term Goal (STG) Decrease lymphedema life impact scale to no greater than 50% STG Duration 12/22/21 Quality Analyst Goal (LTG) Decrease lymphedema life impact scale to no greater than 25% LTG Duration 01/22/22 One Impairment lymphedema bilateral UE's Short Term Goal (STG) Patient to be instrsucted in all aspects of lymphedema care including skin care, manual lymphatic drainage, self- bandaging, lymphedema exercises, options for compression. STG Duration 12/22/21 Usp Goal (LTG) Decrease lymphedema to stable level bilateral UE's (no increase or decrease greater than 1 cm over the course of 1 week) and help patient get fit with appropriate custom bilateral UE compression sleeves. Patient to be independent with all aspects of self-care for lymphedema to include skin care, self- manual lymphatic drainage, self-bandaging, lymphedema exercises, and appropriate use of compression. LTG Duration 01/22/22 Assessment Summary Assessment Patient missed appointment last week, did not feel well all weekend, so minimal compliance with any self-care for lymphedema possible. No caregivers over the weekend to assist. States she will have caregivers the rest of the week and will bring one on Monday for training in bandaging. Despite no bandaging and minimal stretching some decrease in measurements in forearms however significant increases bilateral upper arms which was also visible to the eye. Stressed importance of consistent self-care, doing exercises while bandaged. Patient reports she will try hard to leave bandaging on all night. Physical Therapy Plan Frequency and Duration Frequency of Treatment 16 visists Duration of Treatment 8 weeks Plan of Care Start Date 11/22/21 Plan of Care End Date 01/22/22 Therapeutic Interventions Therapeutic Interventions Aquatic Therapy,Home Exercise Program,Lymphedema Management, Manual Therapy,Self-Care/Home Management,Soft Tissue Mobilization,Taping, Therapeutic Activities, Therapeutic Exercises Next Visit Focus/Plan Next Note Type Treatment Note Next Visit Plan Continue lymphedema management , assess benefit of increased foam use with bandaging. Continue MLD, skin care, compression bandaging, ther ex . Self-management training especially with bandaging, caregiver training when able.
--- NOTE | 2021-12-01 16:21 | PT.OTN ---
Current Diagnoses Postmastectomy lymphedema syndrome (12/01/21) Pain in right shoulder (12/01/21) Pain in left shoulder (12/01/21) Soft tissue disorder, unspecified (12/01/21) Physical Therapy Treatment Note PT-OP-A Visit Information Start: 11/22/21 08:08 Freq: Status: Active Protocol: Document 12/01/21 16:07 SAK (Rec: 12/01/21 16:21 SAK [id number]) Out-Patient Physical Therapy Visit Information Visit Information Visit Type Treatment Note Visit Start Time 14:30 Visit Stop Time 15:58 Total Visit Minutes 88 Visit Number 6 Precautions Precautions bilateral UE lymphedema, history of breast cancer left reports 6 lymph nodes removed, 2 hot. PT-OP-B Current Condition Start: 11/22/21 08:08 Freq: Status: Active Protocol: Document 11/22/21 14:30 SAK (Rec: 11/22/21 16:13 SAK [id number]) Current Condition History of Current Condition Onset Date 2019 Current Complaints bilateral UE lymphedema History of Current Condition 2019 left mastectomy, right as preventive in 2019. Had swelling right away after surgeries left greater than right. C/o upper arm, forearm, and hand swelling. Had 12 lymphatic massages last year from a massage therapist, somewhat helpful but has never worn compression . Can't wear off the shelf garments due to shape of arms. Has done a lot of PT for her shoulders for ROM. Has been measured for bilateral UE compression sleeves but having difficulty getting approval from insurance. Doing peer to peer consult with insurance company and doctor 12/01/21. States arms so heavy that can' t get her arms above her head. Also seeing neurologist due to balance and other issues. Goes to [employer] for exercise when feels up to it. Bilateral carpel tunnel surgeries within past year which seems to have made lymphedema worse. At times states she has gotten firm areas in her arms which she has managed to massage out. Treatment Goals Patient/Caregiver Goals decrease swelling, and get fit with appropriate compression garments. 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 Has caregiver assistance in the home. PT-OP-C Subjective Start: 11/22/21 08:08 Freq: Status: Active Protocol: Document 12/01/21 16:07 [facility] (Rec: 12/01/21 16:21 [facility] [id number]) OP-PT Subjective Patient Comments Patient Comments Patient able to wear bandages 24 hoursleft one stayed up, right has slid down. PT-OP-J Posture/Palpation/Skin Start: 11/22/21 08:08 Freq: Status: Active Protocol: Document 11/22/21 14:30 [facility] (Rec: 11/23/21 11:15 [facility] [id number]) Posture Evaluation Position Sitting Head/C-Spine Posture Forward Head T-Spine Posture Increased Kyphosis Shoulder Posture (L) Rounded,(R) Rounded Scapula Posture (L) Protracted,(R) Protracted Arm Posture (L) Internally Rotated,(R) Internally Rotated Palpation Assessment Location bilateral arms Palpation Findings Edema,Soft Tissue Tightness, Spasm Palpation Details no palpable fibrosis or axillary cording, no signs or symptoms of infection. Moderate to severe soft tissue tightness subaxillary region left greater than right with decrease in scar mobility anterior chest. Moderate lymphedema in upper arms, mild in forearms and hands Skin Assessment Incisional Assessment Incision Appearance/Comments well-healed mastectomy scars, decreased scar mobility PT-OP-K Range of Motion Start: 11/22/21 08:08 Freq: Status: Active Protocol: Document 11/22/21 14:30 [facility] (Rec: 11/23/21 11:15 [facility] [id number]) Cervical Spine Range of Motion Cervical Spine Active Comments WFL Shoulder Goniometric Range of Motion Shoulder Right Shoulder ROM WFL No Testing Position Sitting Flexion 95 Extension 15 Abduction 85 External Rotation at 45 degrees 45 Abduction Internal Rotation Behind Back (text) 40 Left Active Shoulder ROM WFL No Testing Position Sitting Flexion 80 Extension 10 Abduction 75 External Rotation at 45 degrees 45 Abduction Internal Rotation 40 Shoulder ROM Limitations Shoulder ROM Limitations Soft Tissue Tightness,Swelling Elbow/Forearm Range of Motion Elbow/Forearm surjit Elbow/Forearm ROM WFL Yes PT-OP-N Lymphedema Start: 11/22/21 08:08 Freq: Status: Active Protocol: Document 12/01/21 16:07 [facility] (Rec: 12/01/21 16:21 [facility] [id number]) Lymphedema Measurements Upper Extremity Circumference Measurements Right MCP 20.2 cm Dorsum of Hand 23.4 cm Wrist 19.3 cm 5 cm From Wrist Crease 23.5 cm 10 cm From Wrist Crease 27.3 cm 15 cm From Wrist Crease 30.7 cm 20 cm From Wrist Crease 33 cm 25 cm From Wrist Crease 39.5 cm 30 cm From Wrist Crease 50.8 cm 35 cm From Wrist Crease 55.9 cm 40 cm From Wrist Crease 56.9 cm 45 cm From Wrist Crease 52.9 cm Elbow Joint 33.7 cm left UE MCP 20.3 cm Dorsum of Hand 22.4 cm Wrist 19.7 cm 5 cm From Wrist Crease 23.8 cm 10 cm From Wrist Crease 27.8 cm 15 cm From Wrist Crease 30.7 cm 20 cm From Wrist Crease 33.3 cm 25 cm From Wrist Crease 37.9 cm 30 cm From Wrist Crease 51.7 cm 35 cm From Wrist Crease 56.3 cm 40 cm From Wrist Crease 53 cm 45 cm From Wrist Crease 51.3 cm Elbow Joint 33.5 cm PT-OP-Q Treatments Start: 11/22/21 08:08 Freq: Status: Active Protocol: Document 12/01/21 16:07 [facility] (Rec: 12/01/21 16:21 [facility] [id number]) Cardio Equipment Recumbent Stepper (Sci-Fit) Duration (Minutes) 6 Resistance 1 Seat Position 11 Other to facilitate lymphatic flow after bandaging Therapeutic Exercises Supine Exercises overhead stretch Reps/Minutes 2x30 pec stretch Reps/Minutes 2x30 Sidelying Exercises open book Side left Reps/Minutes 5x Comments verbal and manual cues Lymphedema Treatment Manual Lymphatic Drainage Location for bilateral UE lymphedema Duration 40 Comments emphasis on AAI and INOCENTE pathways, deep breathing Lymphedema Wrapping Body Location Bilateral UE's Materials Tricofix size F, channel foam left upper arm, black foam right upper arm and bilateral forearms, Artiflex (3 rolls ), Comprilan 6,8,10, 10. Other skin care with low pH lotion application pror to bandaging Patient Education Compression Garments patient reports doctor needing to use different code for compression sleeve Self Manual Lymphatic Drainage reviewed sweeping, encouraged having caregivers do as possible. Other Patient exploring compression garments online as instructed. Other Other patient to send MLD video to caregiver or watch together for training, unable to come to PT. PT-OP-T Assessment and Plan Start: 11/22/21 08:08 Freq: Status: Active Protocol: Document 12/01/21 16:07 [facility] (Rec: 12/01/21 16:21 [facility] [id number]) Physical Therapy Assessment Rehab Potential Rehabilitation Potential Good Evaluation Complexity Number of Personal Factors/Comorbidities 1-2 Number of Body Systems Impaired 3 Clinical Presentation at Evaluation Evolving Impairments Impairments Activity Tolerance,Edema, Functional Activities,Pain,ROM ,Soft Tissue Mobility Goals Four Impairment pain bilateral shoulders 5/10 on pain scale Senior Living Goal (LTG) Decrease lymphedema and improve shoulder mobility sufficient to decrease patient 's shoulder pain to no greater than 2/10 LTG Duration 01/22/22 Three Impairment Decreased soft tissue mobility chest and subaxillary right Impairment Soft tissue tightness impairing flow of lymphatic fluid, contributing to lymphedema, and limiting shoulder ROM Short Term Goal (STG) Patient to be independent in therapeutic exercises and self -massage STG Duration 12/22/21 Switchboard Receptionist Goal (LTG) Improve chest and subaxillary soft tissue mobility to WNL to facilitate lymphatic flow and improve shoulder ROM to WNL to allow her to do her usual activities including reaching overhead and behind her back. LTG Duration 01/22/22 Two Impairment decreased activity tolerance due to lymphedema Impairment lymphedema life impact scale 71% Short Term Goal (STG) Decrease lymphedema life impact scale to no greater than 50% STG Duration 12/22/21 Senior Living Goal (LTG) Decrease lymphedema life impact scale to no greater than 25% LTG Duration 01/22/22 One Impairment lymphedema bilateral UE's Short Term Goal (STG) Patient to be instrsucted in all aspects of lymphedema care including skin care, manual lymphatic drainage, self- bandaging, lymphedema exercises, options for compression. STG Duration 12/22/21 Senior Living Goal (LTG) Decrease lymphedema to stable level bilateral UE's (no increase or decrease greater than 1 cm over the course of 1 week) and help patient get fit with appropriate custom bilateral UE compression sleeves. Patient to be independent with all aspects of self-care for lymphedema to include skin care, self- manual lymphatic drainage, self-bandaging, lymphedema exercises, and appropriate use of compression. LTG Duration 01/22/22 Assessment Summary Assessment Decreased measurements most significantly left upper arm after patient wearing compression bandaging 24 hours . Working to get caregivers ready to assist overnight. Frustrated that insurance hasn 't approved compression sleeves due to coding issue. Physical Therapy Plan Frequency and Duration Frequency of Treatment 16 visists Duration of Treatment 8 weeks Plan of Care Start Date 11/22/21 Plan of Care End Date 01/22/22 Therapeutic Interventions Therapeutic Interventions Aquatic Therapy,Home Exercise Program,Lymphedema Management, Manual Therapy,Self-Care/Home Management,Soft Tissue Mobilization,Taping, Therapeutic Activities, Therapeutic Exercises Next Visit Focus/Plan Next Note Type Treatment Note Next Visit Plan Continue lymphedema management , assess benefit of increased foam use with bandaging. Continue MLD, skin care, compression bandaging, ther ex . Self-management training especially with bandaging, caregiver training when able.
--- NOTE | 2021-12-02 16:19 | PT.OTN ---
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) Pain in right shoulder (12/02/21) Pain in left shoulder (12/02/21) Soft tissue disorder, unspecified (12/02/21) Physical Therapy Treatment Note PT-OP-A Visit Information Start: 11/22/21 08:08 Freq: Status: Active Protocol: Document 12/02/21 14:34 SAK (Rec: 12/02/21 15:06 [facility] [id number]) Out-Patient Physical Therapy Visit Information Visit Information Visit Type Treatment Note Visit Start Time 14:30 Visit Stop Time 15:58 Total Visit Minutes 88 Visit Number 6 Precautions Precautions bilateral UE lymphedema, history of breast cancer left reports 6 lymph nodes removed, 2 hot. PT-OP-B Current Condition Start: 11/22/21 08:08 Freq: Status: Active Protocol: Document 11/22/21 14:30 SAK (Rec: 11/22/21 16:13 [facility] [id number]) Current Condition History of Current Condition Onset Date 2019 Current Complaints bilateral UE lymphedema History of Current Condition 2019 left mastectomy, right as preventive in 2019. Had swelling right away after surgeries left greater than right. C/o upper arm, forearm, and hand swelling. Had 12 lymphatic massages last year from a massage therapist, somewhat helpful but has never worn compression . Can't wear off the shelf garments due to shape of arms. Has done a lot of PT for her shoulders for ROM. Has been measured for bilateral UE compression sleeves but having difficulty getting approval from insurance. Doing peer to peer consult with insurance company and doctor 12/01/21. States arms so heavy that can' t get her arms above her head. Also seeing neurologist due to balance and other issues. Goes to [employer] for exercise when feels up to it. Bilateral carpel tunnel surgeries within past year which seems to have made lymphedema worse. At times states she has gotten firm areas in her arms which she has managed to massage out. Treatment Goals Patient/Caregiver Goals decrease swelling, and get fit with appropriate compression garments. 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 Has caregiver assistance in the home. PT-OP-C Subjective Start: 11/22/21 08:08 Freq: Status: Active Protocol: Document 12/02/21 14:34 SAK (Rec: 12/02/21 15:06 [facility] [id number]) OP-PT Subjective Patient Comments Patient Comments Bandages came down in bed especially at elbows during the night, had to take them off this am, and didn't have caregiver this am due to sick child, unable to re-bandage. Any reduction likely filled back up again. PT-OP-J Posture/Palpation/Skin Start: 11/22/21 08:08 Freq: Status: Active Protocol: Document 11/22/21 14:30 SAK (Rec: 11/23/21 11:15 [facility] [id number]) Posture Evaluation Position Sitting Head/C-Spine Posture Forward Head T-Spine Posture Increased Kyphosis Shoulder Posture (L) Rounded,(R) Rounded Scapula Posture (L) Protracted,(R) Protracted Arm Posture (L) Internally Rotated,(R) Internally Rotated Palpation Assessment Location bilateral arms Palpation Findings Edema,Soft Tissue Tightness, Spasm Palpation Details no palpable fibrosis or axillary cording, no signs or symptoms of infection. Moderate to severe soft tissue tightness subaxillary region left greater than right with decrease in scar mobility anterior chest. Moderate lymphedema in upper arms, mild in forearms and hands Skin Assessment Incisional Assessment Incision Appearance/Comments well-healed mastectomy scars, decreased scar mobility PT-OP-K Range of Motion Start: 11/22/21 08:08 Freq: Status: Active Protocol: Document 11/22/21 14:30 SAK (Rec: 11/23/21 11:15 [facility] [id number]) Cervical Spine Range of Motion Cervical Spine Active Comments WFL Shoulder Goniometric Range of Motion Shoulder Right Shoulder ROM WFL No Testing Position Sitting Flexion 95 Extension 15 Abduction 85 External Rotation at 45 degrees 45 Abduction Internal Rotation Behind Back (text) 40 Left Active Shoulder ROM WFL No Testing Position Sitting Flexion 80 Extension 10 Abduction 75 External Rotation at 45 degrees 45 Abduction Internal Rotation 40 Shoulder ROM Limitations Shoulder ROM Limitations Soft Tissue Tightness,Swelling Elbow/Forearm Range of Motion Elbow/Forearm surjit Elbow/Forearm ROM WFL Yes PT-OP-N Lymphedema Start: 11/22/21 08:08 Freq: Status: Active Protocol: Document 12/01/21 16:07 [facility] (Rec: 12/01/21 16:21 [facility] [id number]) Lymphedema Measurements Upper Extremity Circumference Measurements Right MCP 20.2 cm Dorsum of Hand 23.4 cm Wrist 19.3 cm 5 cm From Wrist Crease 23.5 cm 10 cm From Wrist Crease 27.3 cm 15 cm From Wrist Crease 30.7 cm 20 cm From Wrist Crease 33 cm 25 cm From Wrist Crease 39.5 cm 30 cm From Wrist Crease 50.8 cm 35 cm From Wrist Crease 55.9 cm 40 cm From Wrist Crease 56.9 cm 45 cm From Wrist Crease 52.9 cm Elbow Joint 33.7 cm left UE MCP 20.3 cm Dorsum of Hand 22.4 cm Wrist 19.7 cm 5 cm From Wrist Crease 23.8 cm 10 cm From Wrist Crease 27.8 cm 15 cm From Wrist Crease 30.7 cm 20 cm From Wrist Crease 33.3 cm 25 cm From Wrist Crease 37.9 cm 30 cm From Wrist Crease 51.7 cm 35 cm From Wrist Crease 56.3 cm 40 cm From Wrist Crease 53 cm 45 cm From Wrist Crease 51.3 cm Elbow Joint 33.5 cm PT-OP-Q Treatments Start: 11/22/21 08:08 Freq: Status: Active Protocol: Document 12/02/21 14:34 [facility] (Rec: 12/02/21 15:06 [facility] [id number]) Cardio Equipment Recumbent Stepper (Sci-Fit) Duration (Minutes) 7 Resistance 1 Seat Position 13 Other to facilitate lymphatic flow after bandaging Therapeutic Exercises Supine Exercises overhead stretch Reps/Minutes 2x30 pec stretch Reps/Minutes 2x30 Sitting Exercises trunk rotation Reps/Minutes 5x pulleys shoulder flex Reps/Minutes 10x Lymphedema Treatment Manual Lymphatic Drainage Location for bilateral UE lymphedema Duration 40 Comments emphasis on AAI and INOCENTE pathways, deep breathing Lymphedema Wrapping Body Location Bilateral UE's Materials Tricofix size F, channel foam left upper arm, black foam right upper arm and bilateral forearms, Artiflex (3 rolls ), Comprilan 6,8,10, 10. Other skin care with low pH lotion application pror to bandaging Patient Education Other Patient exploring compression garments online as instructed, continues to watch [facility] Stressed importance of self- management until seen in 6 days; skin care, self-massage/ sweeping, compression, exercise, PT-OP-T Assessment and Plan Start: 11/22/21 08:08 Freq: Status: Active Protocol: Document 12/02/21 14:34 [facility] (Rec: 12/02/21 15:06 [facility] [id number]) Physical Therapy Assessment Rehab Potential Rehabilitation Potential Good Evaluation Complexity Number of Personal Factors/Comorbidities 1-2 Number of Body Systems Impaired 3 Clinical Presentation at Evaluation Evolving Impairments Impairments Activity Tolerance,Edema, Functional Activities,Pain,ROM ,Soft Tissue Mobility Goals Four Impairment pain bilateral shoulders 5/10 on pain scale Half-Way Goal (LTG) Decrease lymphedema and improve shoulder mobility sufficient to decrease patient 's shoulder pain to no greater than 2/10 LTG Duration 01/22/22 Three Impairment Decreased soft tissue mobility chest and subaxillary right Impairment Soft tissue tightness impairing flow of lymphatic fluid, contributing to lymphedema, and limiting shoulder ROM Short Term Goal (STG) Patient to be independent in therapeutic exercises and self -massage STG Duration 12/22/21 Half-Way Goal (LTG) Improve chest and subaxillary soft tissue mobility to WNL to facilitate lymphatic flow and improve shoulder ROM to WNL to allow her to do her usual activities including reaching overhead and behind her back. LTG Duration 01/22/22 Two Impairment decreased activity tolerance due to lymphedema Impairment lymphedema life impact scale 71% Short Term Goal (STG) Decrease lymphedema life impact scale to no greater than 50% STG Duration 12/22/21 Theatre Arts Professor Goal (LTG) Decrease lymphedema life impact scale to no greater than 25% LTG Duration 01/22/22 One Impairment lymphedema bilateral UE's Short Term Goal (STG) Patient to be instrsucted in all aspects of lymphedema care including skin care, manual lymphatic drainage, self- bandaging, lymphedema exercises, options for compression. STG Duration 12/22/21 Half-Way Goal (LTG) Decrease lymphedema to stable level bilateral UE's (no increase or decrease greater than 1 cm over the course of 1 week) and help patient get fit with appropriate custom bilateral UE compression sleeves. Patient to be independent with all aspects of self-care for lymphedema to include skin care, self- manual lymphatic drainage, self-bandaging, lymphedema exercises, and appropriate use of compression. LTG Duration 01/22/22 Assessment Summary Assessment Patient measurements not significantly changed today, removed compression bandages at 11 am, no caregiver to assist in rebandaging and they had already slid down significantly during the night . Patient was instructed in importance of self-care as not scheduled to come back to PT for 6 days. Patient in agreement, will get caregiver assist as much as possible and use written materials from PT and videos to assist. Physical Therapy Plan Frequency and Duration Frequency of Treatment 16 visists Duration of Treatment 8 weeks Plan of Care Start Date 11/22/21 Plan of Care End Date 01/22/22 Therapeutic Interventions Therapeutic Interventions Aquatic Therapy,Home Exercise Program,Lymphedema Management, Manual Therapy,Self-Care/Home Management,Soft Tissue Mobilization,Taping, Therapeutic Activities, Therapeutic Exercises Next Visit Focus/Plan Next Note Type Treatment Note Next Visit Plan Continue lymphedema management , assess benefit of increased foam use with bandaging. Continue MLD, skin care, compression bandaging, ther ex . Self-management training especially with bandaging, caregiver training occuring via video and written handouts from PT. Will see 2x next week.
--- NOTE | 2021-12-08 16:33 | PT.OTN ---
Current Diagnoses Postmastectomy lymphedema syndrome (12/08/21) Pain in right shoulder (12/08/21) Pain in left shoulder (12/08/21) Soft tissue disorder, unspecified (12/08/21) Physical Therapy Treatment Note PT-OP-A Visit Information Start: 11/22/21 08:08 Freq: Status: Active Protocol: Document 12/08/21 16:14 SAK (Rec: 12/08/21 16:27 [facility] [id number]) Out-Patient Physical Therapy Visit Information Visit Information Visit Start Time 14:30 Visit Stop Time 16:00 Total Visit Minutes 90 Visit Number 8 Precautions Precautions bilateral UE lymphedema, history of breast cancer left reports 6 lymph nodes removed, 2 hot. PT-OP-B Current Condition Start: 11/22/21 08:08 Freq: Status: Active Protocol: Document 11/22/21 14:30 SAK (Rec: 11/22/21 16:13 [facility] [id number]) Current Condition History of Current Condition Onset Date 2019 Current Complaints bilateral UE lymphedema History of Current Condition 2019 left mastectomy, right as preventive in 2019. Had swelling right away after surgeries left greater than right. C/o upper arm, forearm, and hand swelling. Had 12 lymphatic massages last year from a massage therapist, somewhat helpful but has never worn compression . Can't wear off the shelf garments due to shape of arms. Has done a lot of PT for her shoulders for ROM. Has been measured for bilateral UE compression sleeves but having difficulty getting approval from insurance. Doing peer to peer consult with insurance company and doctor 12/01/21. States arms so heavy that can' t get her arms above her head. Also seeing neurologist due to balance and other issues. Goes to [employer] for exercise when feels up to it. Bilateral carpel tunnel surgeries within past year which seems to have made lymphedema worse. At times states she has gotten firm areas in her arms which she has managed to massage out. Treatment Goals Patient/Caregiver Goals decrease swelling, and get fit with appropriate compression garments. 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 Has caregiver assistance in the home. PT-OP-C Subjective Start: 11/22/21 08:08 Freq: Status: Active Protocol: Document 12/08/21 16:14 [facility] (Rec: 12/08/21 16:27 [facility] [id number]) OP-PT Subjective Patient Comments Patient Comments Left bandages from PT on 24 hours, caregiver bandaged 1x over weekend and was able to leave on for 1/2 day, states she tried bandaging herself yesterday but had difficulty getting it firm enough. Still awaiting insurance approval for custom compression sleeves , states she will call insurance company again to see what her doctor has to do for approval; apparently a coding issue. C/o shoulder pain and tightness of scar. PT-OP-J Posture/Palpation/Skin Start: 11/22/21 08:08 Freq: Status: Active Protocol: Document 11/22/21 14:30 [facility] (Rec: 11/23/21 11:15 [facility] [id number]) Posture Evaluation Position Sitting Head/C-Spine Posture Forward Head T-Spine Posture Increased Kyphosis Shoulder Posture (L) Rounded,(R) Rounded Scapula Posture (L) Protracted,(R) Protracted Arm Posture (L) Internally Rotated,(R) Internally Rotated Palpation Assessment Location bilateral arms Palpation Findings Edema,Soft Tissue Tightness, Spasm Palpation Details no palpable fibrosis or axillary cording, no signs or symptoms of infection. Moderate to severe soft tissue tightness subaxillary region left greater than right with decrease in scar mobility anterior chest. Moderate lymphedema in upper arms, mild in forearms and hands Skin Assessment Incisional Assessment Incision Appearance/Comments well-healed mastectomy scars, decreased scar mobility PT-OP-K Range of Motion Start: 11/22/21 08:08 Freq: Status: Active Protocol: Document 11/22/21 14:30 [facility] (Rec: 11/23/21 11:15 [facility] [id number]) Cervical Spine Range of Motion Cervical Spine Active Comments WFL Shoulder Goniometric Range of Motion Shoulder Right Shoulder ROM WFL No Testing Position Sitting Flexion 95 Extension 15 Abduction 85 External Rotation at 45 degrees 45 Abduction Internal Rotation Behind Back (text) 40 Left Active Shoulder ROM WFL No Testing Position Sitting Flexion 80 Extension 10 Abduction 75 External Rotation at 45 degrees 45 Abduction Internal Rotation 40 Shoulder ROM Limitations Shoulder ROM Limitations Soft Tissue Tightness,Swelling Elbow/Forearm Range of Motion Elbow/Forearm surjit Elbow/Forearm ROM WFL Yes PT-OP-N Lymphedema Start: 11/22/21 08:08 Freq: Status: Active Protocol: Document 12/08/21 16:14 [facility] (Rec: 12/08/21 16:33 [facility] [id number]) Lymphedema Measurements Upper Extremity Circumference Measurements Right MCP 20.3 cm Dorsum of Hand 21.9 cm Wrist 18.8 cm 5 cm From Wrist Crease 22.1 cm 10 cm From Wrist Crease 26.7 cm 15 cm From Wrist Crease 30.2 cm 20 cm From Wrist Crease 33.3 cm 25 cm From Wrist Crease 36.8 cm 30 cm From Wrist Crease 49.8 cm 35 cm From Wrist Crease 50.9 cm 40 cm From Wrist Crease 56.5 cm 45 cm From Wrist Crease 56.8 cm Elbow Joint 33.8 cm left UE MCP 20.4 cm Dorsum of Hand 21.9 cm Wrist 19.3 cm 5 cm From Wrist Crease 23.1 cm 10 cm From Wrist Crease 27.6 cm 15 cm From Wrist Crease 31.4 cm 20 cm From Wrist Crease 34 cm 25 cm From Wrist Crease 37.8 cm 30 cm From Wrist Crease 52.5 cm 35 cm From Wrist Crease 56.8 cm 40 cm From Wrist Crease 55.5 cm 45 cm From Wrist Crease 54.5 cm Elbow Joint 34.3 cm PT-OP-Q Treatments Start: 11/22/21 08:08 Freq: Status: Active Protocol: Document 12/08/21 16:14 [facility] (Rec: 12/08/21 16:27 [facility] [id number]) Cardio Equipment Recumbent Stepper (Sci-Fit) Duration (Minutes) 7 Resistance 1 Seat Position 13 Other to facilitate lymphatic flow after bandaging Therapeutic Exercises Supine Exercises overhead stretch Reps/Minutes 2x30 pec stretch Supine Exercise Name major and minor Reps/Minutes 2x30 ea Sidelying Exercises open book Sidelying Exercise Name HEP Standing Exercises row, shoulder ext Resistance L2 TB Reps/Minutes 10x Manual Therapy Treatment Soft Tissue Mobilization subaxillary Mobilization Type Myofascial Release Intensity/Depth Moderate Body Position Hooklying mastectomy scar Mobilization Type Instrument Assisted,Myofascial Release Intensity/Depth Moderate Body Position Hooklying Comments instrument; small and medium suction tool Lymphedema Treatment Manual Lymphatic Drainage Location for bilateral UE lymphedema Duration 40 Comments emphasis on AAI and INOCENTE pathways, deep breathing Lymphedema Wrapping Body Location Bilateral UE's Materials Tricofix size F, channel foam left upper arm, black foam right upper arm and bilateral forearms, Artiflex (3 rolls ), Comprilan 6,8,10, 10. Other skin care with low pH lotion application pror to bandaging Patient Education Other Patient has a couple friends that have ordered off the shelf compression sleeves for her; for plus sized arms, until can obtain custom sleeves from insurance [place] Other Other patient to send MLD video to caregiver or watch together for training, unable to come to PT. PT-OP-T Assessment and Plan Start: 11/22/21 08:08 Freq: Status: Active Protocol: Document 12/08/21 16:14 [facility] (Rec: 12/08/21 16:27 [facility] [id number]) Physical Therapy Assessment Rehab Potential Rehabilitation Potential Good Goals Four Impairment pain bilateral shoulders 5/10 on pain scale Group Home Goal (LTG) Decrease lymphedema and improve shoulder mobility sufficient to decrease patient 's shoulder pain to no greater than 2/10 LTG Duration 01/22/22 Three Impairment Decreased soft tissue mobility chest and subaxillary right Impairment Soft tissue tightness impairing flow of lymphatic fluid, contributing to lymphedema, and limiting shoulder ROM Short Term Goal (STG) Patient to be independent in therapeutic exercises and self -massage STG Duration 12/22/21 Deaf Teacher Goal (LTG) Improve chest and subaxillary soft tissue mobility to WNL to facilitate lymphatic flow and improve shoulder ROM to WNL to allow her to do her usual activities including reaching overhead and behind her back. LTG Duration 01/22/22 Two Impairment decreased activity tolerance due to lymphedema Impairment lymphedema life impact scale 71% Short Term Goal (STG) Decrease lymphedema life impact scale to no greater than 50% STG Duration 12/22/21 Deaf Teacher Goal (LTG) Decrease lymphedema life impact scale to no greater than 25% LTG Duration 01/22/22 One Impairment lymphedema bilateral UE's Short Term Goal (STG) Patient to be instrsucted in all aspects of lymphedema care including skin care, manual lymphatic drainage, self- bandaging, lymphedema exercises, options for compression. STG Duration 12/22/21 Deaf Teacher Goal (LTG) Decrease lymphedema to stable level bilateral UE's (no increase or decrease greater than 1 cm over the course of 1 week) and help patient get fit with appropriate custom bilateral UE compression sleeves. Patient to be independent with all aspects of self-care for lymphedema to include skin care, self- manual lymphatic drainage, self-bandaging, lymphedema exercises, and appropriate use of compression. LTG Duration 01/22/22 Assessment Summary Assessment Patient still unable to bandage sufficiently, states caregiver does fair job. Has a couple friends that have ordered off the shelf sleeves for her until she is able to get insurance coverage for custom sleeves. Measurements variable but with increased use of UE's is seeing some mild decreases despite not being bandaged consistently. States is doing stretching and deep breathing. Physical Therapy Plan Frequency and Duration Frequency of Treatment 16 visists Duration of Treatment 8 weeks Plan of Care Start Date 11/22/21 Plan of Care End Date 01/22/22 Therapeutic Interventions Therapeutic Interventions Aquatic Therapy,Home Exercise Program,Lymphedema Management, Manual Therapy,Self-Care/Home Management,Soft Tissue Mobilization,Taping, Therapeutic Activities, Therapeutic Exercises Next Visit Focus/Plan Next Note Type Treatment Note Next Visit Plan Continue lymphedema management . Assess response to soft tissue work today.
--- NOTE | 2021-12-09 16:21 | PT.OTN ---
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 PT-OP-B Current Condition Start: 11/22/21 08:08 Freq: Status: Active Protocol: Document 11/22/21 14:30 [facility] (Rec: 11/22/21 16:13 [facility] [id number]) Current Condition History of Current Condition Onset Date 2019 Current Complaints bilateral UE lymphedema History of Current Condition 2019 left mastectomy, right as preventive in 2019. Had swelling right away after surgeries left greater than right. C/o upper arm, forearm, and hand swelling. Had 12 lymphatic massages last year from a massage therapist, somewhat helpful but has never worn compression . Can't wear off the shelf garments due to shape of arms. Has done a lot of PT for her shoulders for ROM. Has been measured for bilateral UE compression sleeves but having difficulty getting approval from insurance. Doing peer to peer consult with insurance company and doctor 12/01/21. States arms so heavy that can' t get her arms above her head. Also seeing neurologist due to balance and other issues. Goes to [employer] for exercise when feels up to it. Bilateral carpel tunnel surgeries within past year which seems to have made lymphedema worse. At times states she has gotten firm areas in her arms which she has managed to massage out. Treatment Goals Patient/Caregiver Goals decrease swelling, and get fit with appropriate compression garments. 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 Has caregiver assistance in the home. PT-OP-C Subjective Start: 11/22/21 08:08 Freq: Status: Active Protocol: Document 12/09/21 14:31 [facility] (Rec: 12/09/21 16:16 [facility] [id number]) OP-PT Subjective Patient Comments Patient Comments Was in hurry and forgot bag with bandages. Should get compression sleeves (off the shelf) today or tomorrow. Left compression bandages on overnight, removed at 7am. Feels they are decreased. PT-OP-J Posture/Palpation/Skin Start: 11/22/21 08:08 Freq: Status: Active Protocol: Document 11/22/21 14:30 [facility] (Rec: 11/23/21 11:15 [facility] [id number]) Posture Evaluation Position Sitting Head/C-Spine Posture Forward Head T-Spine Posture Increased Kyphosis Shoulder Posture (L) Rounded,(R) Rounded Scapula Posture (L) Protracted,(R) Protracted Arm Posture (L) Internally Rotated,(R) Internally Rotated Palpation Assessment Location bilateral arms Palpation Findings Edema,Soft Tissue Tightness, Spasm Palpation Details no palpable fibrosis or axillary cording, no signs or symptoms of infection. Moderate to severe soft tissue tightness subaxillary region left greater than right with decrease in scar mobility anterior chest. Moderate lymphedema in upper arms, mild in forearms and hands Skin Assessment Incisional Assessment Incision Appearance/Comments well-healed mastectomy scars, decreased scar mobility PT-OP-K Range of Motion Start: 11/22/21 08:08 Freq: Status: Active Protocol: Document 11/22/21 14:30 [facility] (Rec: 11/23/21 11:15 [facility] [id number]) Cervical Spine Range of Motion Cervical Spine Active Comments WFL Shoulder Goniometric Range of Motion Shoulder Right Shoulder ROM WFL No Testing Position Sitting Flexion 95 Extension 15 Abduction 85 External Rotation at 45 degrees 45 Abduction Internal Rotation Behind Back (text) 40 Left Active Shoulder ROM WFL No Testing Position Sitting Flexion 80 Extension 10 Abduction 75 External Rotation at 45 degrees 45 Abduction Internal Rotation 40 Shoulder ROM Limitations Shoulder ROM Limitations Soft Tissue Tightness,Swelling Elbow/Forearm Range of Motion Elbow/Forearm surjit Elbow/Forearm ROM WFL Yes PT-OP-N Lymphedema Start: 11/22/21 08:08 Freq: Status: Active Protocol: Document 12/09/21 14:31 [facility] (Rec: 12/09/21 16:21 [facility] [id number]) Lymphedema Measurements Upper Extremity Circumference Measurements Right MCP 20.3 cm Dorsum of Hand 23.5 cm Wrist 19 cm 5 cm From Wrist Crease 22.8 cm 10 cm From Wrist Crease 27.2 cm 15 cm From Wrist Crease 30.5 cm 20 cm From Wrist Crease 33.5 cm 25 cm From Wrist Crease 36.5 cm 30 cm From Wrist Crease 48.5 cm 35 cm From Wrist Crease 45.3 cm 40 cm From Wrist Crease 57.8 cm 45 cm From Wrist Crease 56 cm Elbow Joint 34 cm left UE MCP 19.3 cm Dorsum of Hand 22.8 cm Wrist 19.7 cm 5 cm From Wrist Crease 23.4 cm 10 cm From Wrist Crease 28.2 cm 15 cm From Wrist Crease 31.7 cm 20 cm From Wrist Crease 33.7 cm 25 cm From Wrist Crease 36.8 cm 30 cm From Wrist Crease 50.2 cm 35 cm From Wrist Crease 57.4 cm 40 cm From Wrist Crease 55 cm 45 cm From Wrist Crease 54 cm Elbow Joint 33.2 cm PT-OP-Q Treatments Start: 11/22/21 08:08 Freq: Status: Active Protocol: Document 12/09/21 14:31 [facility] (Rec: 12/09/21 16:16 [facility] [id number]) Therapeutic Exercises Supine Exercises overhead stretch Reps/Minutes 2x30 pec stretch Supine Exercise Name major and minor Reps/Minutes 2x30 ea Sidelying Exercises open book Sidelying Exercise Name HEP Sitting Exercises trunk rotation Reps/Minutes 5x pulleys shoulder flex Reps/Minutes 10x Standing Exercises ER Resistance L1 Reps/Minutes 10x row, shoulder ext Resistance L2 TB Reps/Minutes 10x Manual Therapy Treatment Soft Tissue Mobilization subaxillary Mobilization Type Myofascial Release Intensity/Depth Moderate Body Position Hooklying mastectomy scar Mobilization Type Instrument Assisted,Myofascial Release,Rolling,Other Intensity/Depth Moderate Body Position Hooklying Comments instrument; small and medium suction tool pin and stretch Taping 1 Body Location left UE Treatment Focus edema reduction Type of Tape kinesiotape Skin Inspection intact Comments 3 fan strips Lymphedema Treatment Manual Lymphatic Drainage Location for bilateral UE lymphedema Duration 40 Comments emphasis on AAI and INOCENTE pathways, deep breathing Lymphedema Wrapping Other not done due to patient forgetting bandages Other Other Had caregiver videochat during soft tissue work today for instruction in scar mobilization PT-OP-T Assessment and Plan Start: 11/22/21 08:08 Freq: Status: Active Protocol: Document 12/09/21 14:31 [facility] (Rec: 12/09/21 16:16 [facility] [id number]) Physical Therapy Assessment Rehab Potential Rehabilitation Potential Good Evaluation Complexity Number of Personal Factors/Comorbidities 1-2 Number of Body Systems Impaired 3 Clinical Presentation at Evaluation Evolving Impairments Impairments Activity Tolerance,Edema, Functional Activities,Pain,ROM ,Soft Tissue Mobility Goals Four Impairment pain bilateral shoulders 5/10 on pain scale [facility] Goal (LTG) Decrease lymphedema and improve shoulder mobility sufficient to decrease patient 's shoulder pain to no greater than 2/10 LTG Duration 01/22/22 Three Impairment Decreased soft tissue mobility chest and subaxillary right Impairment Soft tissue tightness impairing flow of lymphatic fluid, contributing to lymphedema, and limiting shoulder ROM Short Term Goal (STG) Patient to be independent in therapeutic exercises and self -massage STG Duration 12/22/21 [facility] Goal (LTG) Improve chest and subaxillary soft tissue mobility to WNL to facilitate lymphatic flow and improve shoulder ROM to WNL to allow her to do her usual activities including reaching overhead and behind her back. LTG Duration 01/22/22 Two Impairment decreased activity tolerance due to lymphedema Impairment lymphedema life impact scale 71% Short Term Goal (STG) Decrease lymphedema life impact scale to no greater than 50% STG Duration 12/22/21 [facility] Goal (LTG) Decrease lymphedema life impact scale to no greater than 25% LTG Duration 01/22/22 One Impairment lymphedema bilateral UE's Short Term Goal (STG) Patient to be instrsucted in all aspects of lymphedema care including skin care, manual lymphatic drainage, self- bandaging, lymphedema exercises, options for compression. STG Duration 12/22/21 [facility] Goal (LTG) Decrease lymphedema to stable level bilateral UE's (no increase or decrease greater than 1 cm over the course of 1 week) and help patient get fit with appropriate custom bilateral UE compression sleeves. Patient to be independent with all aspects of self-care for lymphedema to include skin care, self- manual lymphatic drainage, self-bandaging, lymphedema exercises, and appropriate use of compression. LTG Duration 01/22/22 Assessment Summary Assessment Decreased circumference 2 meaurements above elbow with significant visual decrease in edema in that region. Unable to bandage patient UE's due to her not bringing bandages, more time with ex and manual treatment. Patient benefited from MFR and use of suction tool for soft tissue mobilization to decrease damming effects of soft tissue adhesions and increase lymphatic flow. Did video chat with patient's caregiver to instrsuct her in scar mobilization technique; she will do tomorrow. Physical Therapy Plan Frequency and Duration Frequency of Treatment 16 visists Duration of Treatment 8 weeks Plan of Care Start Date 11/22/21 Plan of Care End Date 01/22/22 Therapeutic Interventions Therapeutic Interventions Aquatic Therapy,Home Exercise Program,Lymphedema Management, Manual Therapy,Self-Care/Home Management,Soft Tissue Mobilization,Taping, Therapeutic Activities, Therapeutic Exercises Next Visit Focus/Plan Next Note Type Treatment Note Next Visit Plan Assess compression sleeves if patient obtains the off the shelf. Review self- mobilization of soft tissue, kinesiotape.
--- NOTE | 2021-12-15 16:06 | PT.OTN ---
Current Diagnoses Postmastectomy lymphedema syndrome (12/15/21) Pain in right shoulder (12/15/21) Pain in left shoulder (12/15/21) Soft tissue disorder, unspecified (12/15/21) Physical Therapy Treatment Note PT-OP-A Visit Information Start: 11/22/21 08:08 Freq: Status: Active Protocol: Document 12/15/21 14:30 [facility] (Rec: 12/15/21 16:06 [facility] [id number]) Out-Patient Physical Therapy Visit Information Visit Information Visit Type Treatment Note Visit Start Time 14:30 Visit Stop Time 16:00 Total Visit Minutes 90 Visit Number 10 Precautions Precautions bilateral UE lymphedema, history of breast cancer left reports 6 lymph nodes removed, 2 hot. PT-OP-B Current Condition Start: 11/22/21 08:08 Freq: Status: Active Protocol: Document 11/22/21 14:30 [facility] (Rec: 11/22/21 16:13 [facility] [id number]) Current Condition History of Current Condition Onset Date 2019 Current Complaints bilateral UE lymphedema History of Current Condition 2019 left mastectomy, right as preventive in 2019. Had swelling right away after surgeries left greater than right. C/o upper arm, forearm, and hand swelling. Had 12 lymphatic massages last year from a massage therapist, somewhat helpful but has never worn compression . Can't wear off the shelf garments due to shape of arms. Has done a lot of PT for her shoulders for ROM. Has been measured for bilateral UE compression sleeves but having difficulty getting approval from insurance. Doing peer to peer consult with insurance company and doctor 12/01/21. States arms so heavy that can' t get her arms above her head. Also seeing neurologist due to balance and other issues. Goes to [employer] for exercise when feels up to it. Bilateral carpel tunnel surgeries within past year which seems to have made lymphedema worse. At times states she has gotten firm areas in her arms which she has managed to massage out. Treatment Goals Patient/Caregiver Goals decrease swelling, and get fit with appropriate compression garments. 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 Has caregiver assistance in the home. PT-OP-C Subjective Start: 11/22/21 08:08 Freq: Status: Active Protocol: Document 12/15/21 14:30 [facility] (Rec: 12/15/21 16:06 [facility] [id number]) OP-PT Subjective Patient Comments Patient Comments Got off the shelf compression sleeves, they are too short but she has figured out a way to wear 2 on each UE, feel good, don't roll down. More comfortable than bandaging. PT-OP-J Posture/Palpation/Skin Start: 11/22/21 08:08 Freq: Status: Active Protocol: Document 11/22/21 14:30 [facility] (Rec: 11/23/21 11:15 [facility] [id number]) Posture Evaluation Position Sitting Head/C-Spine Posture Forward Head T-Spine Posture Increased Kyphosis Shoulder Posture (L) Rounded,(R) Rounded Scapula Posture (L) Protracted,(R) Protracted Arm Posture (L) Internally Rotated,(R) Internally Rotated Palpation Assessment Location bilateral arms Palpation Findings Edema,Soft Tissue Tightness, Spasm Palpation Details no palpable fibrosis or axillary cording, no signs or symptoms of infection. Moderate to severe soft tissue tightness subaxillary region left greater than right with decrease in scar mobility anterior chest. Moderate lymphedema in upper arms, mild in forearms and hands Skin Assessment Incisional Assessment Incision Appearance/Comments well-healed mastectomy scars, decreased scar mobility PT-OP-K Range of Motion Start: 11/22/21 08:08 Freq: Status: Active Protocol: Document 11/22/21 14:30 [facility] (Rec: 11/23/21 11:15 [facility] [id number]) Cervical Spine Range of Motion Cervical Spine Active Comments WFL Shoulder Goniometric Range of Motion Shoulder Right Shoulder ROM WFL No Testing Position Sitting Flexion 95 Extension 15 Abduction 85 External Rotation at 45 degrees 45 Abduction Internal Rotation Behind Back (text) 40 Left Active Shoulder ROM WFL No Testing Position Sitting Flexion 80 Extension 10 Abduction 75 External Rotation at 45 degrees 45 Abduction Internal Rotation 40 Shoulder ROM Limitations Shoulder ROM Limitations Soft Tissue Tightness,Swelling Elbow/Forearm Range of Motion Elbow/Forearm surjit Elbow/Forearm ROM WFL Yes PT-OP-N Lymphedema Start: 11/22/21 08:08 Freq: Status: Active Protocol: Document 12/15/21 14:30 [facility] (Rec: 12/15/21 16:06 [facility] [id number]) Lymphedema Measurements Upper Extremity Circumference Measurements Right MCP 20 cm Dorsum of Hand 24.2 cm Wrist 19.6 cm 5 cm From Wrist Crease 23.4 cm 10 cm From Wrist Crease 27.8 cm PT-OP-Q Treatments Start: 11/22/21 08:08 Freq: Status: Active Protocol: Document 12/15/21 14:30 [facility] (Rec: 12/15/21 16:06 [facility] [id number]) Cardio Equipment Recumbent Stepper (Sci-Fit) Duration (Minutes) 7 Resistance 4 Seat Position 14 Other to facilitate lymphatic flow wearing compression sleeves Therapeutic Exercises Supine Exercises overhead stretch Reps/Minutes 2x30 pec stretch Supine Exercise Name major and minor Reps/Minutes 2x30 ea Sitting Exercises pulleys shoulder flex Reps/Minutes 10x Standing Exercises wall slide, walk Comments PT demo; patient already doing ER Resistance L1 Reps/Minutes 10x row, shoulder ext Resistance L2 TB Reps/Minutes 10x Manual Therapy Treatment Soft Tissue Mobilization mastectomy scar Mobilization Type Instrument Assisted,Myofascial Release,Rolling,Other Intensity/Depth Moderate Body Position Hooklying Comments instrument; small and medium suction tool pin and stretch Self-Care/Home Management Treatment Education Patient Education Home Exercise Program,Pain Management,Posture Lymphedema Treatment Manual Lymphatic Drainage Location for bilateral UE lymphedema Duration 35 Comments emphasis on AAI and INOCENTE pathways, deep breathing Lymphedema Wrapping Body Location bilateral UE's Materials right UE: off the shelf compression garment (2) left UE: Tricofix size F, channel foam left upper arm, black foam forearm, Artiflex (3 rolls), Comprilan 6,8,10, 10. PT-OP-T Assessment and Plan Start: 11/22/21 08:08 Freq: Status: Active Protocol: Document 12/15/21 14:30 [facility] (Rec: 12/15/21 16:06 [facility] [id number]) Physical Therapy Assessment Impairments Impairments Activity Tolerance,Edema, Functional Activities,Pain,ROM ,Soft Tissue Mobility Goals Four Impairment pain bilateral shoulders 5/10 on pain scale [facility] Goal (LTG) Decrease lymphedema and improve shoulder mobility sufficient to decrease patient 's shoulder pain to no greater than 2/10 LTG Duration 01/22/22 Three Impairment Decreased soft tissue mobility chest and subaxillary right Impairment Soft tissue tightness impairing flow of lymphatic fluid, contributing to lymphedema, and limiting shoulder ROM Short Term Goal (STG) Patient to be independent in therapeutic exercises and self -massage STG Duration 12/22/21 [facility] Goal (LTG) Improve chest and subaxillary soft tissue mobility to WNL to facilitate lymphatic flow and improve shoulder ROM to WNL to allow her to do her usual activities including reaching overhead and behind her back. LTG Duration 01/22/22 Two Impairment decreased activity tolerance due to lymphedema Impairment lymphedema life impact scale 71% Short Term Goal (STG) Decrease lymphedema life impact scale to no greater than 50% STG Duration 12/22/21 [facility] Goal (LTG) Decrease lymphedema life impact scale to no greater than 25% LTG Duration 01/22/22 One Impairment lymphedema bilateral UE's Short Term Goal (STG) Patient to be instrsucted in all aspects of lymphedema care including skin care, manual lymphatic drainage, self- bandaging, lymphedema exercises, options for compression. STG Duration 12/22/21 [facility] Goal (LTG) Decrease lymphedema to stable level bilateral UE's (no increase or decrease greater than 1 cm over the course of 1 week) and help patient get fit with appropriate custom bilateral UE compression sleeves. Patient to be independent with all aspects of self-care for lymphedema to include skin care, self- manual lymphatic drainage, self-bandaging, lymphedema exercises, and appropriate use of compression. LTG Duration 01/22/22 Assessment Summary Assessment Patient demonstrating improvement in majority of measurements bilateral UE's today with consistent wearing of off the shelf compression garments; has had to wear 2 on each arm, one higher than the other due to not adequate length. Still requires custom -fit compression garments but current ones are better than nothing and allow patient to be more consistent with some compression of UE's. Physical Therapy Plan Frequency and Duration Frequency of Treatment 16 visists Duration of Treatment 8 weeks Plan of Care Start Date 11/22/21 Plan of Care End Date 01/22/22 Therapeutic Interventions Therapeutic Interventions Aquatic Therapy,Home Exercise Program,Lymphedema Management, Manual Therapy,Self-Care/Home Management,Soft Tissue Mobilization,Taping, Therapeutic Activities, Therapeutic Exercises Next Visit Focus/Plan Next Note Type Treatment Note Next Visit Plan Assess response to compression sleeves vs compression bandaging for reduction. Further work on scar, review self-care for lymphedema management, MLD. show donning aid. Anticipate discharge after next PT visit.
--- NOTE | 2021-12-16 16:20 | PT.OTN ---
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 PT-OP-B Current Condition Start: 11/22/21 08:08 Freq: Status: Active Protocol: Document 11/22/21 14:30 SAK (Rec: 11/22/21 16:13 SAK [id number]) Current Condition History of Current Condition Onset Date 2019 Current Complaints bilateral UE lymphedema History of Current Condition 2019 left mastectomy, right as preventive in 2019. Had swelling right away after surgeries left greater than right. C/o upper arm, forearm, and hand swelling. Had 12 lymphatic massages last year from a massage therapist, somewhat helpful but has never worn compression . Can't wear off the shelf garments due to shape of arms. Has done a lot of PT for her shoulders for ROM. Has been measured for bilateral UE compression sleeves but having difficulty getting approval from insurance. Doing peer to peer consult with insurance company and doctor 12/01/21. States arms so heavy that can' t get her arms above her head. Also seeing neurologist due to balance and other issues. Goes to [employer] for exercise when feels up to it. Bilateral carpel tunnel surgeries within past year which seems to have made lymphedema worse. At times states she has gotten firm areas in her arms which she has managed to massage out. Treatment Goals Patient/Caregiver Goals decrease swelling, and get fit with appropriate compression garments. Prior Functional Status Baseline Function- ADL's Independent Baseline Function- Mobility Independent Baseline Function- Work/School worked at [employer] Baseline Function- Other PMH: back pain, depression, DM , dizziness, falls, Current Functional Impairments (Reported) Functional Limitations- ADL's unable to lift her arms above her head or behind her back due to lymphedema Functional Limitations- Work/School unable to work Personal Factors Other Personal Factors That May Effect single mom, boyfriend left Therapy/Recovery after cancer diagnosis. Has caregiver assistance in the home. PT-OP-C Subjective Start: 11/22/21 08:08 Freq: Status: Active Protocol: Document 12/16/21 15:53 SAK (Rec: 12/16/21 16:20 [facility] [id number]) OP-PT Subjective Patient Comments Patient Comments No new c/o. Reports she feels she understands what she needs to do to manage her lymphedema at this time. Still needs to call her doctor again regarding the peer to peer review and charge codes for compression. PT-OP-J Posture/Palpation/Skin Start: 11/22/21 08:08 Freq: Status: Active Protocol: Document 11/22/21 14:30 SAK (Rec: 11/23/21 11:15 [facility] [id number]) Posture Evaluation Position Sitting Head/C-Spine Posture Forward Head T-Spine Posture Increased Kyphosis Shoulder Posture (L) Rounded,(R) Rounded Scapula Posture (L) Protracted,(R) Protracted Arm Posture (L) Internally Rotated,(R) Internally Rotated Palpation Assessment Location bilateral arms Palpation Findings Edema,Soft Tissue Tightness, Spasm Palpation Details no palpable fibrosis or axillary cording, no signs or symptoms of infection. Moderate to severe soft tissue tightness subaxillary region left greater than right with decrease in scar mobility anterior chest. Moderate lymphedema in upper arms, mild in forearms and hands Skin Assessment Incisional Assessment Incision Appearance/Comments well-healed mastectomy scars, decreased scar mobility PT-OP-K Range of Motion Start: 11/22/21 08:08 Freq: Status: Active Protocol: Document 11/22/21 14:30 SAK (Rec: 11/23/21 11:15 [facility] [id number]) Cervical Spine Range of Motion Cervical Spine Active Comments WFL Shoulder Goniometric Range of Motion Shoulder Right Shoulder ROM WFL No Testing Position Sitting Flexion 95 Extension 15 Abduction 85 External Rotation at 45 degrees 45 Abduction Internal Rotation Behind Back (text) 40 Left Active Shoulder ROM WFL No Testing Position Sitting Flexion 80 Extension 10 Abduction 75 External Rotation at 45 degrees 45 Abduction Internal Rotation 40 Shoulder ROM Limitations Shoulder ROM Limitations Soft Tissue Tightness,Swelling Elbow/Forearm Range of Motion Elbow/Forearm surjit Elbow/Forearm ROM WFL Yes PT-OP-N Lymphedema Start: 11/22/21 08:08 Freq: Status: Active Protocol: Document 12/16/21 15:53 [facility] (Rec: 12/16/21 16:20 [facility] [id number]) Lymphedema Measurements Upper Extremity Circumference Measurements Right MCP 20.7 cm Dorsum of Hand 23.3 cm Wrist 19.7 cm 5 cm From Wrist Crease 23.7 cm 10 cm From Wrist Crease 27.7 cm 15 cm From Wrist Crease 31 cm 20 cm From Wrist Crease 33.8 cm 25 cm From Wrist Crease 38.5 cm 30 cm From Wrist Crease 50.2 cm 35 cm From Wrist Crease 58.4 cm 40 cm From Wrist Crease 58 cm 45 cm From Wrist Crease 52.8 cm Elbow Joint 34.5 cm left UE MCP 20.8 cm Dorsum of Hand 23.5 cm Wrist 19.5 cm 5 cm From Wrist Crease 24.6 cm 10 cm From Wrist Crease 28.7 cm 15 cm From Wrist Crease 31.6 cm 20 cm From Wrist Crease 33 cm 25 cm From Wrist Crease 37 cm 30 cm From Wrist Crease 51.4 cm 35 cm From Wrist Crease 55.8 cm 40 cm From Wrist Crease 53.9 cm 45 cm From Wrist Crease 51.6 cm Elbow Joint 33.4 cm PT-OP-Q Treatments Start: 11/22/21 08:08 Freq: Status: Active Protocol: Document 12/16/21 15:53 [facility] (Rec: 12/16/21 16:20 [facility] [id number]) Cardio Equipment Recumbent Stepper (Sci-Fit) Duration (Minutes) 8 Resistance 4 Seat Position 14 Other to facilitate lymphatic flow wearing compression sleeves Therapeutic Exercises Sidelying Exercises shoulder abduction Reps/Minutes 5x Comments with deep breathing, end-range stretch open book Sidelying Exercise Name review Reps/Minutes 5x Comments verbal and manual cues Manual Therapy Treatment Soft Tissue Mobilization subaxillary Mobilization Type Myofascial Release Intensity/Depth Moderate Body Position Hooklying mastectomy scar Mobilization Type Instrument Assisted,Myofascial Release,Rolling,Other Intensity/Depth Moderate Body Position Hooklying Comments instrument; small and medium suction tool pin and stretch Self-Care/Home Management Treatment Education Patient Education Home Exercise Program,Pain Management,Posture Lymphedema Treatment Manual Lymphatic Drainage Location for bilateral UE lymphedema Duration 35 Comments emphasis on AAI and INOCENTE pathways, deep breathing Lymphedema Wrapping Body Location bilateral UE's Materials right UE: off the shelf compression garment (2) left UE: off the shelf compression garment (2), channel foam left upper arm, black foam forearm, Artiflex (1 roll upper arm). Comprilan ,8,10, PT-OP-T Assessment and Plan Start: 11/22/21 08:08 Freq: Status: Active Protocol: Document 12/16/21 15:53 [facility] (Rec: 12/16/21 16:20 [facility] [id number]) Physical Therapy Assessment Impairments Impairments Activity Tolerance,Edema, Functional Activities,Pain,ROM ,Soft Tissue Mobility Goals Four Impairment pain bilateral shoulders 5/10 on pain scale Usp Goal (LTG) Decrease lymphedema and improve shoulder mobility sufficient to decrease patient 's shoulder pain to no greater than 2/10 12/16/21: goal progress LTG Duration 01/22/22 Three Impairment Decreased soft tissue mobility chest and subaxillary right Impairment Soft tissue tightness impairing flow of lymphatic fluid, contributing to lymphedema, and limiting shoulder ROM Short Term Goal (STG) Patient to be independent in therapeutic exercises and self -massage 12/16/21: goal achieved STG Duration 12/22/21 [employer] Goal (LTG) Improve chest and subaxillary soft tissue mobility to WNL to facilitate lymphatic flow and improve shoulder ROM to WNL to allow her to do her usual activities including reaching overhead and behind her back. 12/16/21: goal progress LTG Duration 01/22/22 Two Impairment decreased activity tolerance due to lymphedema Impairment lymphedema life impact scale 71% Short Term Goal (STG) Decrease lymphedema life impact scale to no greater than 50% 12/16/21: goal progres STG Duration 12/22/21 Usp Goal (LTG) Decrease lymphedema life impact scale to no greater than 25% LTG Duration 01/22/22 One Impairment lymphedema bilateral UE's Short Term Goal (STG) Patient to be instrsucted in all aspects of lymphedema care including skin care, manual lymphatic drainage, self- bandaging, lymphedema exercises, options for compression. 12/16/21: goal met STG Duration 12/22/21 Usp Goal (LTG) Decrease lymphedema to stable level bilateral UE's (no increase or decrease greater than 1 cm over the course of 1 week) and help patient get fit with appropriate custom bilateral UE compression sleeves. Patient to be independent with all aspects of self-care for lymphedema to include skin care, self- manual lymphatic drainage, self-bandaging, lymphedema exercises, and appropriate use of compression. 12/16/21: goal mostly met, continues to work with physician and insurance company to be able to get custom compression sleeves LTG Duration 01/22/22 Assessment Summary Assessment Good progress in all goal areas, patient consitent with bandaging or wearing off the shelf compression sleeves, she is still working with physician and insurance company to be able to get custom compression sleeves which I feel will be much more effective for this patient. She is independent with HEP with fair compliance. She demonstrates good understanding of self-massage and her caregiver has been doing this with her. She is ready for discharge from PT at this time. May benefit from further PT in the future. Physical Therapy Plan Discharge Physical Therapy Discharge Reasons Plateau in Progress Discharge Comments Patient independent with self- management.
== END 2021-12-17 08:30 ==
LOC: PHYS 14:30
PROVIDERS: Family Provider Family Medicine; PCP Family Medicine; Referring Provider Family Medicine; Visit Provider Family Medicine
DX: I97.2 Postmastectomy lymphedema syndrome (principal); M79.9 Soft tissue disorder, unspecified; M25.512 Pain in left shoulder; M25.511 Pain in right shoulder
CPT/HCPCS: 29584; 97110; 97112; 97140; 97162; 97535

== ENCOUNTER → 2022-03-18 16:10 | Outpatient (CLI) | payer OTHER, MEDICAID, SELFPAY ==
[2022-03-18 18:19] LABS: Cholesterol 224 mg/dL (140-199); HDL Cholesterol 44 mg/dL (40-60); LDL Cholesterol Calculated 111 mg/dL (<100); Triglycerides 347 mg/dL (35-150)
[2022-03-18 21:27] LABS: Microalbumin Urine Random < 0.6 mg/dL (0-1.6)
[2022-03-18 22:17] LABS: Creatinine Urine Random 69.8 mg/dL
== END ==
PROVIDERS: Family Provider Family Medicine; PCP Pediatrics; Referring Provider Pediatrics; Visit Provider Pediatrics
DX: E11.9 Type 2 diabetes mellitus without complications (principal)
CPT/HCPCS: 36415; 80061; 82043; 82570

== ENCOUNTER → 2022-10-11 13:45 | Outpatient (CLI) | payer OTHER, MEDICAID, SELFPAY ==
[2022-10-11 14:33] LABS: COVID-19 CEPHEID 4-PLEX PCR Negative (Negative); Influenza A - CEPHEID Flu A NEGATIVE (NEGATIVE); Influenza B - CEPHEID Flu B NEGATIVE (NEGATIVE); Respiratory Syncytial Virus Negative (Negative)
== END ==
PROVIDERS: Family Provider Family Medicine; PCP Family Medicine; Visit Provider Family Medicine
DX: J11.1 Influenza due to unidentified influenza virus with other respiratory manifestations (principal)
CPT/HCPCS: 0241U

== ENCOUNTER → 2022-10-24 15:15 | Outpatient (CLI) | payer OTHER, MEDICAID, SELFPAY | PROVIDERS: Family Provider Family Medicine; PCP Family Medicine; Referring Provider Family Medicine; Visit Provider Family Medicine | DX: R00.2 Palpitations (principal) | CPT/HCPCS: 93246 ==

== ENCOUNTER → 2023-03-06 18:37 | Outpatient (ROUT) | payer OTHER, MEDICAID, SELFPAY ==
[2023-03-06 19:10] LABS: Creatinine Urine Random 26.8 mg/dL
[2023-03-06 19:20] LABS: Microalbumin Urine Random < 0.6 mg/dL (0-1.6)
== END ==
PROVIDERS: Family Provider Family Medicine; PCP Family Medicine; Visit Provider Family Medicine
DX: N39.3 Stress incontinence (female) (male) (principal)
CPT/HCPCS: 82043; 82570

== ENCOUNTER → 2023-06-22 13:08 | Outpatient (CLI) | payer OTHER, MEDICAID, SELFPAY ==
[2023-06-22 14:15] LABS: Hemoglobin A1C% w Est Avg Glu 9.8 % (4.0-6.0)
[2023-06-22 14:31] LABS: Alanine Aminotransferase 23 IU/L (<35); Albumin 4.1 g/dL (3.5-5.0); Albumin Globulin Ratio 1.2 (1.0-2.8); Alkaline Phosphatase 59 U/L (38-126); Aspartate Aminotransferase 20 IU/L (14-36); BUN Creatinine Ratio 18.6 (6-22); Bilirubin Total 0.1 mg/dL (0.2-1.3); Blood Urea Nitrogen 8 mg/dL (7-17); C-Reactive Protein Quant 3.7 mg/dL (<1.0); Calcium 9.2 mg/dL (8.4-10.2); Carbon Dioxide 22 mmol/L (22-32); Chloride 102 mmol/L (98-107); Estimated Glomerular Filt Rate > 60 mL/min (>60); Globulin 3.4 g/dL (1.7-4.1); Glucose 285 mg/dL (70-100); HEMOLYSIS < 15 (0-50); Potassium 4.3 mmol/L (3.4-5.1); Sodium 136 mmol/L (137-145); Total Protein 7.5 g/dL (6.3-8.2)
[2023-06-22 14:35] LABS: Erythrocyte Sedimentation Rate 31 MM/HR (0-20); Rheumatoid Factor < 8.6 IU/mL (<12.0)
[2023-06-23 21:36] LABS: CCP Antibodies IgG/IgA 1 units (0-19)
== END ==
PROVIDERS: Family Provider Family Medicine; PCP Family Medicine; Referring Provider Family Medicine; Visit Provider Family Medicine
DX: E11.9 Type 2 diabetes mellitus without complications (principal); F32.9 Major depressive disorder, single episode, unspecified; Z90.13 Acquired absence of bilateral breasts and nipples; M25.60 Stiffness of unspecified joint, not elsewhere classified; M79.89 Other specified soft tissue disorders
CPT/HCPCS: 36415; 80053; 83036; 85651; 86140; 86200; 86430

== ENCOUNTER → 2023-11-21 15:52 | Outpatient (CLI) | payer OTHER, MEDICAID, SELFPAY ==
--- NOTE | 2023-11-21 | DI.ECHO.S_ITS ---
[facility]---------+ [facility] +---------+ : : [address] : : : : [id number] : : : : Phone: [phone]+ Echocardiogram Report + + :Name: SHABBIR GRADY Study Date: 11/21/2023 Height: 67 in : :[facility] ReadingLocation: Weight: 270 lb : : Gender: Female BSA: 2.3 m2 : :: 1980 Age: 43 yrs BP: 132/80 mmHg: :Reason For Study: PALPITATIONS : :Ordering Physician: JUNG, : :ISAAC Performed By: Trey Vasquez : :Referring: ISAAC FENG : + + Interpretation Summary The left ventricle is normal in size and wall thickness. The left ventricular ejection fraction is normal. The ejection fraction is estimated to be 60-65%. The right ventricle is normal in size and function. No significant valvular pathology seen. The IVC is of normal diameter and collapses greater than 50% with a sniff. This suggests a low right atrial pressure of 3 mm Hg. Procedure: A two-dimensional transthoracic echocardiogram with color flow and Doppler was performed. The study quality was technically adequate. Comparison is made with the echocardiogram of 07/04/2018. The patient was in normal sinus rhythm during the exam. The heart rate ranged between 79-88 bpm during the study. Left Ventricle: The left ventricle is normal in size and wall thickness. There is no thrombus. The ejection fraction is estimated to be 60-65%. The left ventricular ejection fraction is normal. There are no focal wall motion abnormalities. Diastolic parameters suggest a relaxation abnormality of the left ventricle, consistent with probable normal filling pressures. Right Ventricle: The right ventricle is normal in size and function. The right ventricular systolic function is normal. Atria: The left atrial size is normal. There has been no significant change since the previous study. Right atrial size is normal. The interatrial septum grossly appears intact with no obvious evidence for an atrial septal defect. Mitral Valve: The mitral valve leaflets are mildly calcified. There is no mitral valve stenosis. There is trace mitral regurgitation. Aortic Valve: The aortic valve is trileaflet. The aortic valve opens well. There is no aortic valve stenosis. No aortic regurgitation is present. Tricuspid Valve: The tricuspid valve is normal in structure and function. There is no tricuspid stenosis. No tricuspid regurgitation. Pulmonic Valve: The pulmonic valve is not well visualized. There is no pulmonic valvular stenosis. There is trace pulmonic regurgitation. Great Vessels: The aortic root is normal size. The dimensions of the ascending aorta are normal. The IVC is of normal diameter and collapses greater than 50% with a sniff. This suggests a low right atrial pressure of 3 mm Hg. Pericardium/ Pleura There is no pericardial effusion. There is no pleural effusion. MMode/2D Measurements & Calculations LVIDd: 5.1 cm LVOT diam: 2.2 cm LVIDs: 3.5 cm Ao root diam: 3.4 cm FS: 32.7 % asc Aorta Diam: 3.6 cm IVSd: 1.1 cm Ao Arch Diam (Prox Trans): 2.7 cm LVPWd: 0.91 cm LV jaimes. diameter/BSA (cm/m^2): 2.2 LV sys. diameter/BSA (cm/m^2): 1.5 LA A2 area: 17.6 cm2 RA long axis: 5.8 cm LA A4 area: 13.3 cm2 RA area: 18.0 cm2 LA length (vol): 4.5 cm RA vol: 47.7 ml LA vol: 44.4 ml RA : 20.8 ml/m2 LA vol index: 19.3 ml/m2 IVC diam: 1.4 cm RVD1 (basal): 3.6 cm RVD2 (mid): 2.8 cm TAPSE: 2.6 cm Doppler Measurements & Calculations Ao V2 max: 125.2 cm/sec LVOT Max Harry: 123.5 cm/sec Ao V2 mean: 88.3 cm/sec LV V1 max P.1 mmHg Ao max P.3 mmHg LV V1 VTI: 22.5 cm Ao mean P.4 mmHg DON(I,D): 3.7 cm2 Ao V2 VTI: 23.8 cm DON(V,D): 3.9 cm2 sev ratio: 0.94 DON indexed to BSA (cm^2/m^2): 1.6 MV E max harry: 65.6 cm/sec PA V2 max: 104.1 cm/sec MV A max harry: 78.5 cm/sec PA V2 mean: 73.1 cm/sec MV E/A: 0.84 PA mean P.3 mmHg Med Peak E' Harry: 5.9 cm/sec PA pr(Accel): 43.0 mmHg E/E' med: 11.1 Lat Peak E' Harry: 8.7 cm/sec E/E' lat: 7.5 E/e' average: 9.3 MV dec time: 0.19 sec SV(OT): 89.2 ml Reading Physician:04:58 PM
== END ==
LOC: ECHO 15:52
PROVIDERS: Family Provider Family Medicine; PCP Family Medicine; Referring Provider Internal Medicine Cardiovascular Disease; Visit Provider Internal Medicine Cardiovascular Disease
DX: R00.2 Palpitations (principal); I49.3 Ventricular premature depolarization
CPT/HCPCS: 93306

== ENCOUNTER → 2023-12-11 09:21 | Outpatient (CLI) | payer OTHER, MEDICAID, SELFPAY ==
[2023-12-11 10:28] LABS: Hemoglobin A1C% w Est Avg Glu 9.1 % (4.0-6.0)
[2023-12-11 10:35] LABS: Cholesterol 192 mg/dL (140-199); HDL Cholesterol 48 mg/dL (40-60); LDL Cholesterol Calculated 79 mg/dL (<100); Triglycerides 323 mg/dL (35-150)
[2023-12-11 10:35] LABS: Alanine Aminotransferase 18 IU/L (<35); Albumin 4.5 g/dL (3.5-5.0); Albumin Globulin Ratio 1.7 (1.0-2.8); Alkaline Phosphatase 59 U/L (38-126); Aspartate Aminotransferase 15 IU/L (14-36); BUN Creatinine Ratio 23.8 (6-22); Bilirubin Total 0.5 mg/dL (0.2-1.3); Blood Urea Nitrogen 10 mg/dL (7-17); Calcium 9.5 mg/dL (8.4-10.2); Carbon Dioxide 22 mmol/L (22-32); Chloride 104 mmol/L (98-107); Estimated Glomerular Filt Rate > 60 mL/min (>60); Globulin 2.6 g/dL (1.7-4.1); Glucose 200 mg/dL (70-100); HEMOLYSIS < 15 (0-50); Potassium 4.1 mmol/L (3.4-5.1); Sodium 137 mmol/L (137-145); Total Protein 7.1 g/dL (6.3-8.2)
[2023-12-11 11:05] LABS: Thyroid Stimulating Hormone 1.28 uIU/mL (0.47-4.68)
== END ==
PROVIDERS: Family Provider Family Medicine; PCP Family Medicine; Referring Provider Internal Medicine Cardiovascular Disease; Visit Provider Internal Medicine Cardiovascular Disease
DX: Z13.220 Encounter for screening for lipoid disorders (principal); R00.2 Palpitations; I49.3 Ventricular premature depolarization; E11.9 Type 2 diabetes mellitus without complications
CPT/HCPCS: 36415; 80053; 80061; 83036; 84443

== ENCOUNTER → 2024-03-22 10:30 | Outpatient (CLI) | payer OTHER, MEDICAID, SELFPAY ==
[2024-03-22 11:23] LABS: Hemoglobin A1C% w Est Avg Glu 9.6 % (4.0-6.0)
[2024-03-22 11:27] LABS: Alanine Aminotransferase 22 IU/L (<35); Albumin 4.3 g/dL (3.5-5.0); Albumin Globulin Ratio 1.4 (1.0-2.8); Alkaline Phosphatase 78 U/L (38-126); Aspartate Aminotransferase 18 IU/L (14-36); BUN Creatinine Ratio 21.3 (6-22); Bilirubin Total 0.4 mg/dL (0.2-1.3); Blood Urea Nitrogen 10 mg/dL (7-17); Calcium 9.4 mg/dL (8.4-10.2); Carbon Dioxide 21 mmol/L (22-32); Chloride 106 mmol/L (98-107); Estimated Glomerular Filt Rate > 60 mL/min (>60); Glucose 222 mg/dL (70-100); HEMOLYSIS 15 (0-50); Potassium 4.4 mmol/L (3.4-5.1); Sodium 137 mmol/L (137-145); Total Protein 7.3 g/dL (6.3-8.2)
== END ==
PROVIDERS: Family Provider Family Medicine; PCP Family Medicine; Referring Provider Family Medicine; Visit Provider Family Medicine
DX: E11.9 Type 2 diabetes mellitus without complications (principal); G89.3 Neoplasm related pain (acute) (chronic); M54.50 Low back pain, unspecified; K04.7 Periapical abscess without sinus; G47.30 Sleep apnea, unspecified
CPT/HCPCS: 36415; 80053; 83036

== ENCOUNTER → 2024-04-16 14:58 | Outpatient (CLI) | payer OTHER, MEDICAID, SELFPAY ==
--- NOTE | 2024-04-16 14:59 | DI.NM.S_ITS ---
PROCEDURE: NM EXERCISE TREADMILL NON NUC COMPARISON: None. INDICATIONS: CHEST PAIN FINDINGS: The patient exercised for 6 minutes and 4 seconds, reaching 95% of maximum predicted heart rate. Appropriate BP response to exercise. 6.2 METs, GIANA +28%. No angina, no diagnostic ST changes, and no ectopy during exercise or recovery. IMPRESSION: Low risk, normal treadmill ECG only stress test from inducible ischemia standpoint. Mildly reduced exercise capacity (GIANA +28%). Dictated by: Erick Chapman MD on 04/17/2024 at 14:44 Approved by: Erick Chapman MD on 04/17/2024 at 14:46
== END ==
PROVIDERS: Family Provider Family Medicine; PCP Family Medicine; Referring Provider Nurse Practitioner Acute Care; Visit Provider Nurse Practitioner Acute Care
DX: R07.9 Chest pain, unspecified (principal); R00.2 Palpitations
CPT/HCPCS: 93017

== ENCOUNTER → 2025-06-09 12:58 | Outpatient (CLI) | payer OTHER, SELFPAY ==
[2025-06-09 14:11] LABS: Hemoglobin A1C% w Est Avg Glu 6.2 % (4.0-6.0)
[2025-06-09 14:34] LABS: Albumin 4.1 g/dL (3.5-5.0); Albumin Globulin Ratio 1.4 (1.0-2.8); Alkaline Phosphatase 71 U/L (38-126); Blood Urea Nitrogen 5 mg/dL (7-17); Carbon Dioxide 19 mmol/L (22-32); Chloride 104 mmol/L (98-107); Estimated Glomerular Filt Rate > 60 mL/min (>60); Globulin 3.0 g/dL (1.7-4.1); HEMOLYSIS 17 (0-50); Potassium 4.5 mmol/L (3.4-5.1); Sodium 134 mmol/L (137-145); Total Protein 7.1 g/dL (6.3-8.2)
[2025-06-09 14:37] LABS: Alanine Aminotransferase 21 IU/L (<35); Calcium 8.9 mg/dL (8.4-10.2); Glucose 188 mg/dL (70-99)
== END ==
PROVIDERS: Family Provider Family Medicine; PCP Family Medicine; Referring Provider Family Medicine; Visit Provider Family Medicine
DX: E11.9 Type 2 diabetes mellitus without complications (principal); Z90.13 Acquired absence of bilateral breasts and nipples; G47.33 Obstructive sleep apnea (adult) (pediatric); F32.A Depression, unspecified; G89.3 Neoplasm related pain (acute) (chronic); M54.50 Low back pain, unspecified
CPT/HCPCS: 36415; 80053; 83036